=== PATIENT | female | born 1980 | race Caucasian/White ===

== ENCOUNTER 2016-08-31 08:53 | Emergency (ER) | payer OTHER ==
[~2016-08-31] VITALS: Ht 167.6 cm; Wt 63.5 kg
[~2016-08-31 08:53] MED LIST: ALPR0.5T PO; CITA40TA5 PO; DOCU-27 PO; HYDR-963 PO; MAGN400T3 PO; ROPI0.5T PO; TRAZ50TA15 PO
--- NOTE | 2016-08-31 08:59 | PHYS DOC ---
Past Medical History Past Medical History: Anxiety, Constipation, Other Additional Past Medical Histor: small bowel obstruction Past Surgical History: Hysterectomy, Splenectomy, Other Additional Past Surgical Histo: BOWEL RESECTION, transvaginal sling, PANCREATECTOMY Alcohol Use: None Drug Use: None Adult General Chief Complaint Chief Complaint: OTHER COMPLAINTS HPI HPI Patient is a 36 year old female who presents with 2 days of productive cough, fevers, chills, weakness. 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 She did receive her pneumococcal, influenza B and Neisseria meningitidis vaccinations. She states she's in taking Tylenol and a few of her narcotic pain medicines that contain Tylenol over the last several days. Do not actually take her temperature but has felt fevers and chills. She denies any neck pain, shortness of breath. She states her coughing up green sputum does make her abdomen more tender than usual. Denies any specific abdominal pain and states overall stomach swelling better than it has in the past. Eyes any diarrhea, or dysuria. Review of Systems Review of Systems Constitutional: As a first subjective fevers and chills [] Eyes: Denies change in visual acuity, redness, or eye pain [] HENT: Denies nasal congestion or sore throat [] Respiratory: Positive for productive cough, denies any shortness of breath [] Cardiovascular: No additional information not addressed in HPI [] GI: Denies abdominal pain, nausea, vomiting, bloody stools or diarrhea [] : Denies dysuria or hematuria [] Musculoskeletal: Denies back pain or joint pain [] Integument: Denies rash or skin lesions [] Neurologic: Denies headache, focal weakness or sensory changes [] Endocrine: Denies polyuria or polydipsia [] Current Medications Current Medications Current Medications Medications (Trade) Dose Ordered Sig/Joey Start Time Stop Time Status Last Admin Dose Admin Sodium Chloride (Iv Sodium Chloride 0.9% 1000ml Bag) 1,000 ml @ 1,000 mls/hr Q1H 08/31/16 09:05 08/31/16 10:04 DC 08/31/16 09:32 1,000 MLS/HR Allergies Allergies Allergies Coded Allergies Type Severity Reaction Last Updated Verified methylprednisolone Allergy Intermediate Hives 03/16/16 No trimethoprim Adverse Reaction Intermediate 03/16/16 No sulfamethoxazole Adverse Reaction Mild 03/16/16 No Physical Exam Physical Exam Constitutional: Well developed, well nourished, no acute distress, non-toxic appearance. [] HENT: Normocephalic, atraumatic, bilateral external ears normal, oropharynx moist, no oral exudates, nose normal. [] Eyes: PERRLA, EOMI, conjunctiva normal, no discharge. [] Neck: Normal range of motion, no tenderness, supple, no stridor. [] Cardiovascular:Heart rate regular rhythm, no murmur [] Lungs & Thorax: Bilateral breath sounds clear to auscultation [] Abdomen: Bowel sounds normal, soft, no tenderness, no masses, no pulsatile masses. [] Skin: Warm, dry, no erythema, no rash. [] Back: No tenderness, no CVA tenderness. [] Extremities: No tenderness, no cyanosis, no clubbing, ROM intact, no edema. [] Neurologic: Alert and oriented X 3, normal motor function, normal sensory function, no focal deficits noted. [] Psychologic: Affect normal, judgement normal, mood normal. [] Current Patient Data Vital Signs Vital Signs Date Time Temp Pulse Resp B/P Pulse Ox O2 Delivery O2 Flow Rate FiO2 08/31/16 11:32 71 18 118/79 98 Room Air 08/31/16 09:00 96.7 96.7 Lab Values Laboratory Tests Test 08/31/16 09:10 08/31/16 09:20 White Blood Count 4.9x10^3/uL (4.0-11.0) Red Blood Count 4.90x10^6/uL (3.50-5.40) Hemoglobin 13.9g/dL (12.0-15.5) Hematocrit 41.8% (36.0-47.0) Mean Corpuscular Volume 85fL (79-100) Mean Corpuscular Hemoglobin 28pg (25-35) Mean Corpuscular Hemoglobin Concent 33g/dL (31-37) Red Cell Distribution Width 14.9% (11.5-14.5) H Platelet Count 289x10^3/uL (140-400) Neutrophils (%) (Auto) 42% (31-73) Lymphocytes (%) (Auto) 42% (24-48) Monocytes (%) (Auto) 14% (0-9) H Eosinophils (%) (Auto) 1% (0-3) Basophils (%) (Auto) 1% (0-3) Neutrophils # (Auto) 2.1x10^3uL (1.8-7.7) Lymphocytes # (Auto) 2.1x10^3/uL (1.0-4.8) Monocytes # (Auto) 0.7x10^3/uL (0.0-1.1) Eosinophils # (Auto) 0.0x10^3/uL (0.0-0.7) Basophils # (Auto) 0.1x10^3/uL (0.0-0.2) Sodium Level 136mmol/L (136-145) Potassium Level 4.1mmol/L (3.5-5.1) Chloride Level 102mmol/L (98-107) Carbon Dioxide Level 27mmol/L (21-32) Anion Gap 7 (6-14) Blood Urea Nitrogen 13mg/dL (7-20) Creatinine 0.8mg/dL (0.6-1.0) Estimated GFR (Cockcroft-Gault) 82.1 BUN/Creatinine Ratio 16 (6-20) Glucose Level 77mg/dL (70-99) Calcium Level 9.7mg/dL (8.5-10.1) Total Bilirubin 0.3mg/dL (0.2-1.0) Direct Bilirubin 0.1mg/dL (0.0-0.2) Aspartate Amino Transferase (AST) 24U/L (15-37) Alanine Aminotransferase (ALT) 35U/L (14-59) Alkaline Phosphatase 66U/L (46-116) Total Protein 8.6g/dL (6.4-8.2) H Albumin 4.2g/dL (3.4-5.0) Albumin/Globulin Ratio 1.0 (1.0-1.7) Lactic Acid Level 1.7mmol/L (0.4-2.0) Influenza Type A Antigen Negative (NEGATIVE) Influenza Type B Antigen Negative (NEGATIVE) Laboratory Tests 08/31/16 09:10 Laboratory Tests 08/31/16 09:10 EKG EKG [] Radiology/Procedures Radiology[facility]Procedures [facility] [address] [place], [place] [id number] IMAGING REPORT Signed PATIENT: DAR EDUARDO ACCOUNT: [id number] : 1980 LOCATION: ER AGE: 36 SEX: F EXAM STATUS: REG ER ORD. PHYSICIAN: VINNY SANFORD MD REASON: fever, cough PROCEDURE: CHEST PA & LATERAL EXAM: Chest, 2 views. HISTORY: Cough. COMPARISON: 07/31/2016. FINDINGS: Frontal and lateral views of the chest are obtained. There is no infiltrate, effusion or pneumothorax. The heart is normal in size. IMPRESSION: No acute pulmonary finding. DICTATED and SIGNED BY: VERN MCNEIL MD DATE: 08/31/16 1025 CC: GO MEJIAS MD; VINNY SANFORD MD ~ Impressions: Bronchitis Course & Med Decision Making Course & Med Decision Making Pertinent Labs and Imaging studies reviewed. (See chart for details) Chest x-ray and additional labs show an acute abnormalities. She likely has bronchitis. Will treat with a Z-Josh, 40 mg prednisone by mouth daily for 5 days and Phenergan with codeine to help her suppress her cough and sleep. She is given return instructions for worsening fever, cough neck stiffness, confusion, other concerns return ER. Follow-up with primary care physician within the next 5-7 days. She agreeable plan being discharged in stable condition this time. Dragon Disclaimer Dragon Disclaimer This electronic medical record was generated, in whole or in part, using a voice recognition dictation system. Departure Departure Referrals: UNKNOWN PCP NAME (PCP) Scripts Promethazine HCl/Codeine (Prometh-Codein 6.25-10 mg/5 ml)5 Ml Syrup5 Ml PO PRN Q4-6HRS PRN COUGH 5 Days Prov:VINNY SANFORD MD 08/31/16 Prednisone 20 Mg Tablet1 Tab PO BID #10 TAB Prov:VINNY SANFORD MD 08/31/16 Azithromycin (Azithromycin Tablet)250 Mg Tablet1 Pkg PO UD #6 TAB Prov:VINNY SANFORD MD 08/31/16 VINNY SANFORD MD Aug 31, 2016 08:59
[2016-08-31] MEDS ORDERED: IV NORMAL SALINE 1000ML BAG 1,000 ML IV SCH (09:05)
[2016-08-31 09:32] LABS: CALCIUM 9.7 mg/dL (8.5-10.1); CREATININE 0.8 mg/dL (0.6-1.0); GFR 82.1; POTASSIUM 4.1 mmol/L (3.5-5.1)
[2016-08-31 09:37] LABS: ALBUMIN 4.2 g/dL (3.4-5.0); DIRECT BILIRUBIN 0.1 mg/dL (0.0-0.2); TOTAL BILIRUBIN 0.3 mg/dL (0.2-1.0); TOTAL PROTEIN 8.6 g/dL (6.4-8.2)
[2016-08-31 09:38] LABS: BASO # 0.1 x10^3/uL (0.0-0.2); BASO % 1 % (0-3); EOS % 1 % (0-3); HEMATOCRIT 41.8 % (36.0-47.0); HEMOGLOBIN 13.9 g/dL (12.0-15.5); LYMPH # 2.1 x10^3/uL (1.0-4.8); LYMPH % 42 % (24-48); MEAN CORPUSCULAR HEMOGLOBIN 28 pg (25-35); MEAN CORPUSCULAR HGB CONC 33 g/dL (31-37); MEAN CORPUSCULAR VOLUME 85 fL (79-100); MONO % 14 % (0-9); NEUT % 42 % (31-73); PLATELET COUNT 289 x10^3/uL (140-400); RED CELL DISTRIBUTION WIDTH 14.9 % (11.5-14.5); WHITE BLOOD COUNT 4.9 x10^3/uL (4.0-11.0)
[2016-08-31 09:52] LABS: OBC FLU VALID
--- NOTE | 2016-08-31 10:31 | RAD ---
EXAM: Chest, 2 views. HISTORY: Cough. COMPARISON: 07/31/2016. FINDINGS: Frontal and lateral views of the chest are obtained. There is no infiltrate, effusion or pneumothorax. The heart is normal in size. IMPRESSION: No acute pulmonary finding.
[2016-08-31 11:32] VITALS: BP 118/79
[2016-08-31] MEDS ORDERED: AZIT250T6 PO (11:41)
[2016-08-31] MEDS ORDERED: PRED20TA PO (11:41)
[2016-08-31] MEDS ORDERED: PROM5SYR2 PO (11:41)
[2016-08-31 12:48] LABS: PLT ESTIMATE ADEQUATE (ADEQUATE)
== END 2016-08-31 11:49 | disposition home or self-care (01) ==
LOC: ER 08:53
DX: J40 Bronchitis, not specified as acute or chronic (principal); Z90.710 Acquired absence of both cervix and uterus; Z90.81 Acquired absence of spleen; Z98.890 Other specified postprocedural states; Z90.410 Acquired total absence of pancreas; Z87.19 Personal history of other diseases of the digestive system; Z88.2 Allergy status to sulfonamides; Z88.1 Allergy status to other antibiotic agents; Z88.8 Allergy status to other drugs, medicaments and biological substances
CPT/HCPCS: 36415; 71020; 80053; 80076; 83605; 85007; 85027; 87040; 87804; 99285; J7030

== ENCOUNTER 2016-10-15 01:18 | Emergency (ER) | payer OTHER ==
[~2016-10-15] VITALS: Ht 167.6 cm; Wt 63.5 kg
[~2016-10-15 01:18] MED LIST changes: +AZIT250T6 PO; +PRED20TA PO; +PROM5SYR2 PO
[2016-10-15 01:41] VITALS: BP 145/94
[2016-10-15 01:52] LABS: BASO # 0.1 x10^3/uL (0.0-0.2); BASO % 1 % (0-3); EOS % 1 % (0-3); HEMATOCRIT 41.1 % (36.0-47.0); HEMOGLOBIN 13.4 g/dL (12.0-15.5); LYMPH # 3.3 x10^3/uL (1.0-4.8); LYMPH % 35 % (24-48); MEAN CORPUSCULAR HEMOGLOBIN 28 pg (25-35); MEAN CORPUSCULAR HGB CONC 33 g/dL (31-37); MEAN CORPUSCULAR VOLUME 87 fL (79-100); MONO % 7 % (0-9); NEUT % 57 % (31-73); PLATELET COUNT 252 x10^3/uL (140-400); RED BLOOD COUNT 4.73 x10^6/uL (3.50-5.40); RED CELL DISTRIBUTION WIDTH 14.6 % (11.5-14.5); WHITE BLOOD COUNT 9.5 x10^3/uL (4.0-11.0)
--- NOTE | 2016-10-15 02:10 | PHYS DOC ---
Past Medical History Past Medical History: Anxiety, Constipation, Other Additional Past Medical Histor: small bowel obstruction Past Surgical History: Hysterectomy, Splenectomy, Other Additional Past Surgical Histo: BOWEL RESECTION, transvaginal sling, PANCREATECTOMY Alcohol Use: None Drug Use: None Adult General Chief Complaint Chief Complaint: ABDOMINAL PAIN HPI HPI Patient is a 36 year old female who presents with umbilical abdominal pain for the past 2 days and feeling of umbilical/incisional hernia protrusion for the past 2 days. She has mild vague abdominal discomfort otherwise. Pain is constant , gradually worsening, achy. She denies n/v, f/c, diarrhea, constipation, bloody or dark stools. Review of Systems Review of Systems Constitutional: Denies fever or chills [] Eyes: Denies change in visual acuity, redness, or eye pain [] HENT: Denies nasal congestion or sore throat [] Respiratory: Denies cough or shortness of breath [] Cardiovascular: No additional information not addressed in HPI [] GI: Denies nausea, vomiting, bloody stools or diarrhea [] : Denies dysuria or hematuria [] Musculoskeletal: Denies back pain or joint pain [] Integument: Denies rash or skin lesions [] Neurologic: Denies headache, focal weakness or sensory changes [] Endocrine: Denies polyuria or polydipsia [] Current Medications Current Medications Current Medications Medications (Trade) Dose Ordered Sig/Joey Start Time Stop Time Status Last Admin Dose Admin Info (Do NOT chart on this entry -- for MONITORING) 1 each PRN DAILY PRN 10/15/16 02:15 10/17/16 02:14 Iohexol (Omnipaque 300 Mg/ml) 75 ml 1X ONCE 10/15/16 02:15 10/15/16 02:16 DC 10/15/16 02:35 75 ML Allergies Allergies Allergies Coded Allergies Type Severity Reaction Last Updated Verified methylprednisolone Allergy Intermediate Hives 03/16/16 No trimethoprim Adverse Reaction Intermediate 03/16/16 No sulfamethoxazole Adverse Reaction Mild 03/16/16 No Physical Exam Physical Exam Constitutional: Well developed, well nourished, no acute distress, non-toxic appearance. [] HENT: Normocephalic, atraumatic, bilateral external ears normal, oropharynx moist, nose normal. [] Eyes: PERRLA, EOMI. [] Neck: Normal range of motion, supple. [] Cardiovascular:Heart rate regular rhythm [] Lungs & Thorax: Bilateral breath sounds clear to auscultation [] Abdomen: Bowel sounds normal, soft, moderate tenderness supraumbilical incision area with thickened area worse here than other parts of incision scar, well appearing incision scar, no overlying skin changes, no abdominal tenderness otherwise. [] Skin: Warm, dry, no erythema, no rash. [] Back: Normal ROM. [] Extremities: ROM intact, ambulatory with a steady gait. [] Neurologic: Alert and oriented X 3, normal motor function, normal sensory function, no focal deficits noted. [] Psychologic: Affect normal, judgement normal, mood normal. [] Current Patient Data Vital Signs Vital Signs Date Time Temp Pulse Resp B/P Pulse Ox O2 Delivery O2 Flow Rate FiO2 10/15/16 01:41 98.2 77 20 145/94 99 Room Air 98.2 Lab Values Laboratory Tests Test 10/15/16 01:37 White Blood Count 9.5x10^3/uL (4.0-11.0) Red Blood Count 4.73x10^6/uL (3.50-5.40) Hemoglobin 13.4g/dL (12.0-15.5) Hematocrit 41.1% (36.0-47.0) Mean Corpuscular Volume 87fL (79-100) Mean Corpuscular Hemoglobin 28pg (25-35) Mean Corpuscular Hemoglobin Concent 33g/dL (31-37) Red Cell Distribution Width 14.6% (11.5-14.5) H Platelet Count 252x10^3/uL (140-400) Neutrophils (%) (Auto) 57% (31-73) Lymphocytes (%) (Auto) 35% (24-48) Monocytes (%) (Auto) 7% (0-9) Eosinophils (%) (Auto) 1% (0-3) Basophils (%) (Auto) 1% (0-3) Neutrophils # (Auto) 5.4x10^3uL (1.8-7.7) Lymphocytes # (Auto) 3.3x10^3/uL (1.0-4.8) Monocytes # (Auto) 0.6x10^3/uL (0.0-1.1) Eosinophils # (Auto) 0.1x10^3/uL (0.0-0.7) Basophils # (Auto) 0.1x10^3/uL (0.0-0.2) Sodium Level 139mmol/L (136-145) Potassium Level 3.6mmol/L (3.5-5.1) Chloride Level 103mmol/L (98-107) Carbon Dioxide Level 26mmol/L (21-32) Anion Gap 10 (6-14) Blood Urea Nitrogen 18mg/dL (7-20) Creatinine 0.7mg/dL (0.6-1.0) Estimated GFR (Cockcroft-Gault) 95.8 Glucose Level 144mg/dL (70-99) H Lactic Acid Level 1.0mmol/L (0.4-2.0) Calcium Level 9.5mg/dL (8.5-10.1) Laboratory Tests 10/15/16 01:37 Laboratory Tests 10/15/16 01:37 Radiology/Procedures Radiology/Procedures CT abdomen and pelvis with IV contrast IMPRESSION Small residual fluid collection anterior to the left lobe of the liver measuring 1.5 centimeters. A hernia is not demonstrated CT Postop changes. No bowel obstruction or other abnormal fluid collections or other acute finding noted. Electronically signed by: Leonel Pratt MD (Oct 15, 2016 02:59:50) Course & Med Decision Making Course & Med Decision Making Pertinent Labs and Imaging studies reviewed. (See chart for details) Workup is unremarkable. Symptom likely related to scar tissue pain worse with frequent manipulation. Return precautions given. She understands and agrees with plan. Dragon Disclaimer Dragon Disclaimer This electronic medical record was generated, in whole or in part, using a voice recognition dictation system. Departure Departure Impression: Primary Impression: Abdominal wall pain Disposition: 01 HOME, SELF-CARE Condition: STABLE Referrals: GO MEJIAS MD (PCP) Patient Instructions: Medical Screening Exam Additional Instructions: Follow up with your primary care doctor. Return for any concerns. Socrates ERVIN MD Oct 15, 2016 02:10
[2016-10-15] MEDS ORDERED: CONTRAST GIVEN MC PRN (02:15)
[2016-10-15] MEDS ORDERED: IOHEXOL 300 MG/ML 75 ML VIAL IV ONE (02:15)
[2016-10-15 02:17] LABS: CALCIUM 9.5 mg/dL (8.5-10.1); CREATININE 0.7 mg/dL (0.6-1.0); GFR 95.8; POTASSIUM 3.6 mmol/L (3.5-5.1)
--- NOTE | 2016-10-15 03:01 | RAD ---
PROCEDURE CT abdomen and pelvis with contrast HISTORY UMBILICAL ABDOMEN PAIN WITH PALPABLE HERNIA
OMNI [address] images were obtained using 75 mL of Omnipaque 300 contrast. Sagittal and coronal reconstructed images were reviewed. One or more of the following individualized dose reduction techniques were utilized for this examination: 1. Automated exposure control; 2. Adjustment of the mA and/or kV according to patient size; 3. Use of iterative reconstruction technique.One or more of the following individualized dose reduction techniques were utilized for this examination: 1. Automated exposure control; 2. Adjustment of the mA and/or kV according to patient size; 3. Use of iterative reconstruction technique. COMPARISON Comparison is made with a study from July 31, 2016 FINDINGS The lung bases are clear. There is no effusion. A liver lesion is not identified. There is a small residual 1.5 centimeter fluid collection anterior to the liver which has improved since the prior exam. Patient has had a splenectomy. There is also evidence suggesting a distal pancreatectomy. There is no mass or hydronephrosis in the kidneys. There is no bowel obstruction. There is no ascites. Uterus and ovaries are normal. There are changes from bowel surgery. There is no adenopathy. A significant umbilical hernia is not demonstrated on the CT images. IMPRESSION Small residual fluid collection anterior to the left lobe of the liver measuring 1.5 centimeters. A hernia is not demonstrated CT Postop changes. No bowel obstruction or other abnormal fluid collections or other acute finding noted. Electronically signed by: Leonel Pratt MD (Oct 15, 2016 02:59:50)
== END 2016-10-15 03:06 | disposition home or self-care (01) ==
LOC: ER 01:18
DX: R10.33 Periumbilical pain (principal); K56.60 Unspecified intestinal obstruction; Z90.81 Acquired absence of spleen; Z90.710 Acquired absence of both cervix and uterus; Z90.410 Acquired total absence of pancreas; Z98.890 Other specified postprocedural states; Z88.2 Allergy status to sulfonamides; Z88.1 Allergy status to other antibiotic agents; Z88.8 Allergy status to other drugs, medicaments and biological substances
CPT/HCPCS: 36415; 74177; 80048; 83605; 85027; 99285; Q9967

== ENCOUNTER → 2017-01-03 | Outpatient (CLI) | payer OTHER ==
--- NOTE | 2017-01-04 20:18 | SLEEP ---
DATE OF STUDY: 01/03/2017 OBJECTIVE: The patient is a 36-year-old female with restless legs syndrome. Her pain clinic doctor believes that she needs a sleep study for this diagnosis. Height 5 feet 6 inches, weight 140 pounds, BMI 23, Keene sleep score 8. INTERPRETATION: Sleep architecture is characterized by sleep efficiency of 97% across the 6.6 hours of recording time. Stage volumes are normal for age. Sleep onset latency is 6 minutes. Respiratory monitoring shows a total of 3 events for an apnea-hypopnea index of 0.5 events per hour of sleep. Minimum oxygen saturation is 93%. Periodic limb movements of sleep occur at a rate of 6 events per hour, one event per hour associated with arousal. No cardiac arrhythmias are observed. IMPRESSION: Essentially normal polysomnogram showing no sleep disordered breathing and the periodic limb movements of sleep are at a minimum level. Thank you for letting us help with the patient's care. SHIRA JACKSON MD DR: SHELIA/chucho JOB#: [id number] / [id number] Lizzeth Walters MD
== END | disposition home or self-care (01) ==
LOC: SLPLAB 18:48
PROVIDERS: ATTEND Family Medicine
DX: G25.81 Restless legs syndrome (principal); G47.33 Obstructive sleep apnea (adult) (pediatric)
CPT/HCPCS: 95810

== ENCOUNTER → 2017-02-16 | Outpatient (CLI) | payer OTHER ==
[~2017-02-16] MED LIST changes: +DOCU-109 PO; -DOCU-27 PO
== END | disposition home or self-care (01) ==
LOC: LAB 02:55
DX: Z11.59 Encounter for screening for other viral diseases (principal)
CPT/HCPCS: 36415; 86735; 86762; 86765

== ENCOUNTER → 2017-02-22 | Outpatient (CLI) | payer OTHER | END | disposition home or self-care (01) | LOC: LAB 00:49 | PROVIDERS: ATTEND Emergency Medicine | DX: Z11.1 Encounter for screening for respiratory tuberculosis (principal) | CPT/HCPCS: 36415 ==

== ENCOUNTER 2017-03-16 15:19 | Observation (INO) | payer OTHER ==
[~2017-03-16] VITALS: Ht 167.6 cm; Wt 64.5 kg
[2017-03-16] MEDS ORDERED: IV NORMAL SALINE 1000ML BAG 1,000 ML IV ONE (15:45)
[2017-03-16] MEDS ORDERED: ONDANSETRON PF 4 MG/2 ML VIAL. IV ONE (15:45)
--- NOTE | 2017-03-16 15:59 | PHYS DOC ---
Past Medical History Past Medical History: Anxiety, Constipation, Other Additional Past Medical Histor: small bowel obstruction Past Surgical History: Hysterectomy, Splenectomy, Other Additional Past Surgical Histo: BOWEL RESECTION, transvaginal sling, PANCREATECTOMY Alcohol Use: None Drug Use: None Adult General Chief Complaint Chief Complaint: ABDOMINAL PAIN HPI HPI 37-year-old female presenting to the emergency department today with right lower quadrant abdominal pain. She describes it as a migrating pain. Started around 4 AM yesterday. It is a throbbing pain that migrated from the periumbilical region down to the right lower quadrant. She also reports "rectal pain". She denies melena or hematochezia. She has nausea. She denies fevers however has had chills. Review of systems is negative for chest pain shortness of breath. Positive for mild headache similar to previous headaches. Negative for numbness weakness or tingling. All other review of systems is negative unless otherwise noted in history of present illness. ED course: 37-year-old female presenting to the emergency department today with right lower quadrant abdominal pain. Triage vital signs. Pertinent physical exam findings shows the patient has mild tenderness in the right lower quadrant. No rebound tenderness present. No guarding present. Blood work sent. CBC shows elevated leukocytosis. CT abdomen pelvis obtained with IV contrast which was not suggestive of appendicitis. On reexamination the patient the patient continues to have right lower quadrant abdominal pain. Her clinical history is strongly suggestive of appendicitis of the patient was subsequently admitted to our hospital for serial abdominal examinations and surgical consultation. Review of Systems Review of Systems SEE ABOVE. Current Medications Current Medications Current Medications Medications (Trade) Dose Ordered Sig/[facility] Start Time Stop Time Status Last Admin Dose Admin Hydromorphone HCl (Dilaudid) 0.5 mg PRN Q30MIN PRN 03/16/17 15:45 03/16/17 18:33 DC 03/16/17 18:33 0.5 MG Iohexol (Omnipaque 300 Mg/ml) 75 ml 1X ONCE 03/16/17 16:30 03/16/17 16:31 DC 03/16/17 16:38 75 ML Morphine Sulfate 2 mg PRN Q1HR PRN 03/16/17 17:00 03/16/17 17:05 2 MG Ondansetron HCl (Zofran) 4 mg 1X ONCE 03/16/17 15:45 03/16/17 15:48 DC 03/16/17 16:02 4 MG Sodium Chloride 1,000 ml @ 1,000 mls/hr 1X ONCE 03/16/17 15:45 03/16/17 16:44 DC 03/16/17 16:02 1,000 MLS/HR Allergies Allergies Allergies Coded Allergies Type Severity Reaction Last Updated Verified methylprednisolone Allergy Intermediate Hives 03/16/16 No trimethoprim Adverse Reaction Intermediate 03/16/16 No sulfamethoxazole Adverse Reaction Mild 03/16/16 No Physical Exam Physical Exam SEE ABOVE Constitutional: Well developed, well nourished, no acute distress, non-toxic appearance. [] HENT: Normocephalic, atraumatic, bilateral external ears normal, oropharynx moist, no oral exudates, nose normal. [] Eyes: PERRLA, EOMI, conjunctiva normal, no discharge. [] Neck: Normal range of motion, no tenderness, supple, no stridor. [] Cardiovascular:Heart rate regular rhythm, no murmur [] Lungs & Thorax: Bilateral breath sounds clear to auscultation [] Abdomen: SEE ABOVE Skin: Warm, dry, no erythema, no rash. [] Back: No tenderness, no CVA tenderness. [] Extremities: No tenderness, no cyanosis, no clubbing, ROM intact, no edema. [] Neurologic: Alert and oriented X 3, normal motor function, normal sensory function, no focal deficits noted. [] Psychologic: Affect normal, judgement normal, mood normal. [] Current Patient Data Vital Signs Vital Signs Date Time Temp Pulse Resp B/P (MAP) Pulse Ox O2 Delivery O2 Flow Rate FiO2 03/16/17 17:27 74 20 106/68 (81) 96 Room Air 03/16/17 15:25 98.0 98.0 Lab Values Laboratory Tests Test 03/16/17 15:50 White Blood Count 14.1 x10^3/uL (4.0-11.0) H Red Blood Count 4.85 x10^6/uL (3.50-5.40) Hemoglobin 14.0 g/dL (12.0-15.5) Hematocrit 42.8 % (36.0-47.0) Mean Corpuscular Volume 88 fL (79-100) Mean Corpuscular Hemoglobin 29 pg (25-35) Mean Corpuscular Hemoglobin Concent 33 g/dL (31-37) Red Cell Distribution Width 14.5 % (11.5-14.5) Platelet Count 300 x10^3/uL (140-400) Neutrophils (%) (Auto) 83 % (31-73) H Lymphocytes (%) (Auto) 12 % (24-48) L Monocytes (%) (Auto) 4 % (0-9) Eosinophils (%) (Auto) 0 % (0-3) Basophils (%) (Auto) 1 % (0-3) Neutrophils # (Auto) 11.7 x10^3uL (1.8-7.7) H Lymphocytes # (Auto) 1.7 x10^3/uL (1.0-4.8) Monocytes # (Auto) 0.6 x10^3/uL (0.0-1.1) Eosinophils # (Auto) 0.0 x10^3/uL (0.0-0.7) Basophils # (Auto) 0.1 x10^3/uL (0.0-0.2) Sodium Level 140 mmol/L (136-145) Potassium Level 4.3 mmol/L (3.5-5.1) Chloride Level 104 mmol/L (98-107) Carbon Dioxide Level 26 mmol/L (21-32) Anion Gap 10 (6-14) Blood Urea Nitrogen 12 mg/dL (7-20) Creatinine 0.7 mg/dL (0.6-1.0) Estimated GFR (Cockcroft-Gault) 95.2 Glucose Level 104 mg/dL (70-99) H Calcium Level 9.5 mg/dL (8.5-10.1) Total Bilirubin 0.5 mg/dL (0.2-1.0) Direct Bilirubin 0.1 mg/dL (0.0-0.2) Aspartate Amino Transferase (AST) 15 U/L (15-37) Alanine Aminotransferase (ALT) 18 U/L (14-59) Alkaline Phosphatase 51 U/L (46-116) Total Protein 7.4 g/dL (6.4-8.2) Albumin 4.0 g/dL (3.4-5.0) Lipase 95 U/L (73-393) Laboratory Tests 03/16/17 15:50 Laboratory Tests 03/16/17 15:50 EKG EKG [] Radiology/Procedures Radiology/Procedures [] Course & Med Decision Making Course & Med Decision Making Pertinent Labs and Imaging studies reviewed. (See chart for details) [] Dragon Disclaimer Dragon Disclaimer This electronic medical record was generated, in whole or in part, using a voice recognition dictation system. Departure Departure Impression: Primary Impression: Abdominal pain Disposition: ADMITTED INPATIENT Admitting Physician: Song Galindo Condition: STABLE Referrals: GO MEJIAS MD (PCP) Patient Instructions: Abdominal Pain BAILEY EDMONDSON MD Mar 16, 2017 15:59
[2017-03-16] MEDS: HYDROmorphone 2 MG/ML VIAL IV PRN ×4 (16:03→18:33)
[2017-03-16 16:04] LABS: BASO # 0.1 x10^3/uL (0.0-0.2); BASO % 1 % (0-3); EOS % 0 % (0-3); HEMATOCRIT 42.8 % (36.0-47.0); LYMPH # 1.7 x10^3/uL (1.0-4.8); LYMPH % 12 % (24-48); MEAN CORPUSCULAR HEMOGLOBIN 29 pg (25-35); MEAN CORPUSCULAR HGB CONC 33 g/dL (31-37); MEAN CORPUSCULAR VOLUME 88 fL (79-100); MONO % 4 % (0-9); NEUT % 83 % (31-73); PLATELET COUNT 300 x10^3/uL (140-400); RED BLOOD COUNT 4.85 x10^6/uL (3.50-5.40); RED CELL DISTRIBUTION WIDTH 14.5 % (11.5-14.5); WHITE BLOOD COUNT 14.1 x10^3/uL (4.0-11.0)
[2017-03-16 16:12] LABS: CALCIUM 9.5 mg/dL (8.5-10.1); CREATININE 0.7 mg/dL (0.6-1.0); GFR 95.2; POTASSIUM 4.3 mmol/L (3.5-5.1)
[2017-03-16 16:23] LABS: DIRECT BILIRUBIN 0.1 mg/dL (0.0-0.2); TOTAL BILIRUBIN 0.5 mg/dL (0.2-1.0); TOTAL PROTEIN 7.4 g/dL (6.4-8.2)
[2017-03-16] MEDS ORDERED: IOHEXOL 300 MG/ML 75 ML VIAL IV ONE (16:30)
[2017-03-16] MEDS: MORPHINE SULFATE 2 MG/ML DISP.SYRIN. IV PRN ×3 (17:05→22:51)
--- NOTE | 2017-03-16 17:12 | RAD ---
CT of the abdomen and pelvis with contrast, 03/16/2017: History: Abdominal pain, nausea and vomiting Multidetector CT imaging was performed following an IV bolus injection of iodinated contrast material. No oral contrast material was administered for this study. Comparison is made to an exam from 10/15/2016. No hepatic abnormality is detected. The gallbladder is unremarkable. The pancreatic head cannot be clearly from unopacified bowel. There appears to have been partial resection of the pancreatic body and tail. The spleen is surgically absent. No renal abnormality is detected. There are surgical sutures related to bowel loops in the pelvis. No bowel distention is evident. A thin tubular collection of gas in the right pelvis probably represents a segment of appendix. No dilated appendix is evident. There is a small amount of free fluid in the pelvis. No free air is evident in the abdomen or pelvis. IMPRESSION: 1. Postsurgical changes. 2. Small amount of free fluid in the pelvis. 3. No other acute abdominal or pelvic abnormality is detected. PQRS Compliance Statement: One or more of the following individualized dose reduction techniques were utilized for this examination: 1. Automated exposure control 2. Adjustment of the mA and/or kV according to patient size 3. Use of iterative reconstruction technique
[2017-03-16] MEDS ORDERED: OXYC5TAB PO (19:41)
[2017-03-16] MEDS ORDERED: OXYC10TA PO (19:41)
[2017-03-16] MEDS: IV NORMAL SALINE 1000ML BAG 1,000 ML IV SCH (19:45)
[2017-03-16 20:35] VITALS: BP 103/62
[2017-03-16] MEDS ORDERED: IBUPROFEN 400 MG TABLET. PO PRN (21:15)
[2017-03-16] MEDS ORDERED: traZODone 50 MG TABLET. PO PRN (21:15)
[2017-03-16] MEDS ORDERED: oxyCODONE IR 5 MG TABLET PO PRN (21:15)
[2017-03-16] MEDS ORDERED: ALPRAZolam 0.5 MG TABLET PO PRN (21:15)
[2017-03-16] MEDS ORDERED: DOCUSATE SODIUM 100 MG CAPSULE. PO PRN (21:15)
[2017-03-16] MEDS: ONDANSETRON PF 4 MG/2 ML VIAL. IV PRN (21:36)
[2017-03-16] MEDS: KETOROLAC 15 MG/ML VIAL. IV PRN (21:36)
[2017-03-16] MEDS: CITALOPRAM 20 MG TABLET. PO SCH (21:37)
[2017-03-16 23:00] VITALS: BP 94/51
--- NOTE | 2017-03-16 23:57 | HP ---
ADMIT DATE: 03/16/2017 CHIEF COMPLAINT: Abdominal pain. HISTORY OF PRESENT ILLNESS: The patient is a pleasant middle-aged white female who has had several abdominal surgeries. She presents with a 10/10 abdominal pain that has been occurring for several days. She also has pain in her rectum. She states it feels very deep, it is throbbing. She tried taking more home medications, but that did not seem to work. Clinically, it seems that she might possibly have an appendicitis. I discussed the case with the ER physician. We are going to admit the patient and consult General Surgery. PAST MEDICAL HISTORY: Chronic pain, multiple abdominal surgeries. She has had a partial colon resection because of mesh that got entangled into her bowel. She has had a subtotal pancreatectomy at . ALLERGIES: METHYLPREDNISOLONE, SULFA AND TRIMETHOPRIM. FAMILY HISTORY: Hypertension. SOCIAL HISTORY: She is an RN. She does not drink, smoke or take drugs. She works in our Emergency Room. MEDICATIONS: Reviewed. She is on Xanax, citalopram, Colace, magnesium, oxycodone, trazodone. REVIEW OF SYSTEMS: GENERAL: No history of weight change, weakness or fevers. SKIN: No bruising, hair changes or rashes. EYES: No blurred, double or loss of vision. NOSE AND THROAT: No history of nosebleeds, hoarseness or sore throat. HEART: No history of palpitations, chest pain or shortness of breath on exertion. LUNGS: Denies cough, hemoptysis, wheezing or shortness of breath. GASTROINTESTINAL: She complains of abdominal pain. GENITOURINARY: No history of frequency, urgency, hesitancy or nocturia. NEUROLOGIC: Denies history of numbness, tingling, tremor or weakness. PSYCHIATRIC: No history of panic, anxiety or depression. ENDOCRINE: No history of heat or cold intolerance, polyuria or polydipsia. EXTREMITIES: Denies muscle weakness, joint pain, pain on walking or stiffness. PHYSICAL EXAMINATION: VITAL SIGNS: Temperature 98.2, pulse 80, respirations 18, blood pressure 113/60. GENERAL: She is alert, cooperative. HEART: Normal S1, S2. LUNGS: Clear. ABDOMEN: Soft, nontender. EXTREMITIES: No edema. ENDOCRINE: No thyromegaly. SKIN: No rashes. PSYCHIATRIC: She is a little anxious. VASCULAR: Good capillary refill. LABORATORY DATA: White count 14, hemoglobin 14, platelets 300. Electrolytes normal. ASSESSMENT AND PLAN: Abdominal pain, rule out appendicitis. The patient has been admitted. We will start IV Rocephin. Consult General Surgery. Try to resume her home meds, IV fluids, repeat her labs in the morning. NADJA FARR DO DR: ABIODUN/chucho JOB#: [id number] / [id number]
[2017-03-17] MEDS: MORPHINE SULFATE 2 MG/ML DISP.SYRIN. IV PRN ×6 (02:08→20:45)
[2017-03-17 03:00] VITALS: BP 106/63
--- NOTE | 2017-03-17 03:03 | ACF ---
Admission Forms Criteria ABDOMINAL PAIN Clinical Indications for Admission to Inpatient Care (Place 'X' for any and all applicable criteria): Admission is indicated for ANY ONE of the following(1)(2)(3)(4)(5): [X]I. Inpatient admission required rather than observation care (Also use Abdominal Pain: Observation Care, as appropriate) because of ANY ONE of the following: [X]a) Severe pain requiring acute inpatient management [ ]b) Identification of etiology/finding that requires inpatient care (eg, aortic dissection, free air) [ ]c) Absent bowel sounds with complete ileus(6) [ ]d) Suspected toxic megacolon [ ]e) Severe electrolyte abnormalities requiring inpatient care [ ]f) High fever or infection requiring inpatient admission as indicated by ANY ONE of following(7)(8): [ ] i) Appropriate outpatient or observational care antimicrobial treatment unavailable, not effective, or not feasible [ ] ii) Documented bacteremia [ ] iii) Temperature > 104.9 degrees F (oral) [ ] iv) T >103.1 F (oral) or < 96.8 F(rectal) that does not respond to all emergency treatment measures [ ]g) Signs of intestinal obstruction [B] [ ]h) Hemodynamic instability [ ]i) IV fluid to replace significant ongoing losses (greater than 3 L/m2 per day) (12)(13) [ ]j) Percutaneous or open drainage (eg, abscess, biliary tract ) procedures [ ]k) Parenteral nutrition regimen that must be implemented on inpatient basis [ ]l) Other condition,treatment or monitoring requiring inpatient admission. [ ]II. Peritoneal signs present [ ]III. Surgery needed that cannot be performed on an ambulatory basis. [ ]IV. Evaluation requires patient to not eat or drink for extended period ( eg, more than 24 hours). [ ]V. Contraindications and/or Inappropriate clinical situations for Observational Care in patients with abdominal pain, when ANY ONE of the following is required: [ ]a) Thorough evaluation is required to prevent catastrophic events due to delays in diagnosing (e.g.Mesenteric ischemia) 1,3 [ ]b) Patient with severe pathology or with chronic symptoms unlikely to improve in the ED stay (3) [ ]. General contraindications and/or Inappropriate clinical situations for Observational Care in patients with abdominal pain, when ANY ONE of the following is required: [ ]a) Prediction of prolongation of LOS based on ANY ONE of the following may be considered as a contraindication for observational care 2, 3, 4, 5, 6, 7, 8, 9, 10, 11 [ ]i) Age > 65 yrs. [ ]ii) Patient arriving by ambulance [ ]iii) Patient with high acuity [ ]iv) Patient requiring vital sign monitoring [ ]v) Patient on IV medication [ ]b) Systolic blood pressures 180mmHg 3,12 [ ]c) Patient with altered mental status including delirium and other alteration of consciousness, (3) [ ]d) Patient whose discharge disposition will be to a nursing home home or rehabilitation home should not be managed in Emergency Department Observation Unit. CMS rule requires 3 days hospital stay before such placement.3,13 [ ]e) Patient with failure to thrive due to broad array of etiologies 3,16,17 [ ]f) Inability to ambulate 3,14 Extended stay beyond goal length of stay may be needed for(2)(3): [ ]a) Persistent abdominal pain with suspected intra-abdominal process [ ]b) Diagnosed condition requiring continued stay (e.g., pancreatitis, complicated diverticulitis) [ ]c) Surgery (e.g., colectomy) The original [facility] content created by [email or web address] has been revised. The portions of the content which have been revised are identified through the use of italic text or in bold, and [facility] has neither reviewed nor approved the modified material.All other unmodified content is copyright [facility]. Please see references footnoted in the original [facility] edition 2016 Admission Criteria Met?: Yes HANS RICKS Mar 17, 2017 03:02
[2017-03-17] MEDS: IV NORMAL SALINE 1000ML BAG 1,000 ML IV SCH ×2 (04:26→13:09)
[2017-03-17 04:36] LABS: BASO # 0.1 x10^3/uL (0.0-0.2); BASO % 1 % (0-3); EOS % 1 % (0-3); HEMATOCRIT 37.7 % (36.0-47.0); HEMOGLOBIN 12.4 g/dL (12.0-15.5); LYMPH # 2.5 x10^3/uL (1.0-4.8); LYMPH % 24 % (24-48); MEAN CORPUSCULAR HEMOGLOBIN 29 pg (25-35); MEAN CORPUSCULAR HGB CONC 33 g/dL (31-37); MEAN CORPUSCULAR VOLUME 89 fL (79-100); MONO % 7 % (0-9); NEUT % 68 % (31-73); PLATELET COUNT 254 x10^3/uL (140-400); RED BLOOD COUNT 4.25 x10^6/uL (3.50-5.40); RED CELL DISTRIBUTION WIDTH 14.4 % (11.5-14.5); WHITE BLOOD COUNT 10.4 x10^3/uL (4.0-11.0)
[2017-03-17 05:00] LABS: CALCIUM 8.1 mg/dL (8.5-10.1); CREATININE 0.7 mg/dL (0.6-1.0); GFR 95.2
[2017-03-17] MEDS: KETOROLAC 15 MG/ML VIAL. IV PRN ×2 (07:08→13:16)
[2017-03-17] MEDS: ONDANSETRON PF 4 MG/2 ML VIAL. IV PRN ×2 (07:08→15:24)
[2017-03-17 07:22] VITALS: BP 112/72
[2017-03-17] MEDS: MAGNESIUM OXIDE 400 MG TABLET PO SCH (08:53)
--- NOTE | 2017-03-17 08:55 | PDOC2 ---
JESENIA MAXWELL EVENTS MANAGER 03/17/17 0854: CONSULT Date of Consult Date of Consult DATE: 03/17/17 TIME: 08:47 Reason for Consult Reason for Consult: RLQ pain Referring Physician Referring Physician: ER Identification/Chief Complaint Chief Complaint abdominal pain Problems: Source Source: Chart review, Patient History of Present Illness Reason for Visit: 4 days ago developed diarrhea proceeded by significant abdominal pain, nausea and emesis. The diarrhea stopped, however she continued to have umbilical pain with radiation to RLQ and throbbing in rectum. She has not been able to keep anything down for 2 days. Currently still having pain, somewhat improved and nausea. Denies sick contacts. She has an extensive surgical history and hesitant for any additional surgeries Past Medical History Cardiovascular: No pertinent hx Pulmonary: No pertinent hx GI: Constipation Heme/Onc: No pertinent hx Psych: Anxiety, Depression Infectious disease: No pertinent hx Past Surgical History Past Surgical History: Hysterectomy, Other (splenectomy, pancreatectomy, bowel resection, hernia repair with mesh ) Family History Family History: Family History Unknown Social History Quit ALCOHOL: none Drugs: None Lives: with Family Current Problem List Problem List Problems Medical Problems: (1) Abdominal pain Status: Acute Current Medications Current Medications Current Medications Ondansetron HCl (Zofran) 4 mg 1X ONCE IV Last administered on 03/16/17 16:02 ; Start 03/16/17 at 15:45; Stop 03/16/17 at 15:48; Status DC Hydromorphone HCl (Dilaudid) 0.5 mg PRN Q30MIN PRN IV moderate to seevere pain Last administered on 03/16/17 18:33; Start 03/16/17 at 15:45; Stop 03/16/17 at 18:33; Status DC Sodium Chloride 1,000 ml @ 1,000 mls/hr 1X ONCE IV Last administered on 16:02; Start 03/16/17 at 15:45; Stop 03/16/17 at 16:44; Status DC Iohexol (Omnipaque 300 Mg/ml) 75 ml 1X ONCE IV Last administered on 03/16/17 16:38; Start 03/16/17 at 16:30; Stop 03/16/17 at 16:31; Status DC Morphine Sulfate 2 mg PRN Q1HR PRN IV SEVERE PAIN Last administered on 17:05; Start 03/16/17 at 17:00 Ondansetron HCl (Zofran) 4 mg PRN Q8HRS PRN IV NAUSEA/VOMITING Last administered on 03/17/17 07:08; Start 03/16/17 at 17:45; Stop 03/17/17 at 17:44 Morphine Sulfate 2 mg PRN Q2HR PRN IV PAIN Last administered on 03/17/17 07:07 ; Start 03/16/17 at 17:45; Stop 03/17/17 at 17:44 Sodium Chloride 1,000 ml @ 125 mls/hr Q8H IV Last administered on 03/17/17 04 :26; Start 03/16/17 at 17:34; Stop 03/17/17 at 17:33 Ketorolac Tromethamine (Toradol) 15 mg PRN Q6HRS PRN IV PAIN Last administered on 03/17/17 07:08; Start 03/16/17 at 21:15; Stop 03/21/17 at 21:14 Ibuprofen (Motrin) 400 mg PRN Q6HRS PRN PO INFLAMMATION; Start 03/16/17 at 21: 15 Alprazolam (Xanax) 0.5 mg PRN Q4HRS PRN PO ANXIETY / AGITATION; Start 03/16/17 at 21:15 Docusate Sodium (Colace) 200 mg PRN DAILY PRN PO CONSTIPATION; Start 03/16/17 at 21:15 Magnesium Oxide (Magnesium Oxide) 800 mg DAILY PO ; Start 03/17/17 at 09:00 Oxycodone HCl (Roxicodone) 5 mg PRN Q4HRS PRN PO PAIN; Start 03/16/17 at 21:15 Trazodone HCl (Desyrel) 50 mg PRN QHS PRN PO INSOMNIA; Start 03/16/17 at 21:15 Citalopram Hydrobromide (CeleXA) 40 mg DAILY PO ; Start 03/17/17 at 09:00; Stop 03/17/17 at 09:00; Status DC Oxycodone HCl (Roxicodone) 10 mg PRN Q4HRS PRN PO PAIN; Start 03/16/17 at 21:15 Citalopram Hydrobromide (CeleXA) 40 mg HS PO Last administered on 03/16/17 21: 37; Start 03/16/17 at 21:30 Ceftriaxone Sodium 1 gm/ Sodium Chloride 50 ml @ 100 mls/hr Q24H IV ; Start at 21:00 Ceftriaxone Sodium 1 gm/ Sodium Chloride 50 ml @ 100 mls/hr ONCE ONCE IV Last administered on 03/16/17 23:51; Start 03/16/17 at 23:45; Stop 03/17/17 at 00:14; Status DC Active Scripts Active Reported Oxycodone Hcl 10 Mg Tablet 10 Mg PO PRN Q4HRS PRN Oxycodone Hcl 5 Mg Tablet 5 Mg PO PRN Q4HRS PRN Colace (Docusate Sodium) 100 Mg Capsule 2 Cap PO PRN DAILY PRN Magnesium Oxide 400 Mg Tablet 2 Tab PO DAILY Xanax (Alprazolam) 0.5 Mg Tablet 1 Tab PO PRN Q4HRS PRN Trazodone Hcl 50 Mg Tablet 1 Tab PO PRN PRN Citalopram Hbr (Citalopram Hydrobromide) 40 Mg Tablet 1 Tab PO HS Allergies Allergies: Coded Allergies: methylprednisolone (Verified Allergy, Intermediate, Hives, 03/17/17) trimethoprim (Verified Adverse Reaction, Intermediate, 03/17/17) LETHARGIC sulfamethoxazole (Verified Adverse Reaction, Mild, 03/17/17) LETHARGIC ROS General: YES: Chills, Other (subjective fevers) PSYCHOLOGICAL ROS: No: Anxiety, Depression Eyes: No Blurry vision, No Double vision HEENT: No: Heacaches, Sore Throat Hematological and Lymphatic: No: Bleeding Problems, Blood Clots Respiratory: No: Cough, Shortness of breath Cardiovascular: No Chest Pain, No Palpitations Gastrointestinal: Yes Other (see hpi) Genitourinary: No Dysuria, No Hematuria Musculoskeletal: No Joint Pain, No Muscle Pain Neurological: No Impaired Coord/balance, No Numbness/Tingling Skin: No Pruritus, No Rash Physical Exam General: Alert, Oriented X3, Cooperative, No acute distress HEENT: PERRLA, Mucous membr. moist/pink Lungs: Clear to auscultation, Normal air movement Heart: Regular rate, Normal S1, Normal S2, No murmurs Abdomen: Soft, Other (ND, multiple abdominal scars, umbilical/RLQ TTP, no guarding or rebound) Extremities: No clubbing, No cyanosis Skin: No rashes, No breakdown Neuro: Normal gait, Normal speech Psych/Mental Status: Mental status NL, Mood NL MUSCULOSKELETAL: No deformity, No swelling Vitals VITALS Vital Signs Date Time Temp Pulse Resp B/P (MAP) Pulse Ox O2 Delivery O2 Flow Rate FiO2 03/17/17 07:22 98.6 80 18 112/72 (85) 96 Room Air 98.6 Labs Labs Laboratory Tests Test 03/16/17 15:50 03/17/17 03:36 White Blood Count 14.1 x10^3/uL (4.0-11.0) 10.4 x10^3/uL (4.0-11.0) Red Blood Count 4.85 x10^6/uL (3.50-5.40) 4.25 x10^6/uL (3.50-5.40) Hemoglobin 14.0 g/dL (12.0-15.5) 12.4 g/dL (12.0-15.5) Hematocrit 42.8 % (36.0-47.0) 37.7 % (36.0-47.0) Mean Corpuscular Volume 88 fL (79-100) 89 fL (79-100) Mean Corpuscular Hemoglobin 29 pg (25-35) 29 pg (25-35) Mean Corpuscular Hemoglobin Concent 33 g/dL (31-37) 33 g/dL (31-37) Red Cell Distribution Width 14.5 % (11.5-14.5) 14.4 % (11.5-14.5) Platelet Count 300 x10^3/uL (140-400) 254 x10^3/uL (140-400) Neutrophils (%) (Auto) 83 % (31-73) 68 % (31-73) Lymphocytes (%) (Auto) 12 % (24-48) 24 % (24-48) Monocytes (%) (Auto) 4 % (0-9) 7 % (0-9) Eosinophils (%) (Auto) 0 % (0-3) 1 % (0-3) Basophils (%) (Auto) 1 % (0-3) 1 % (0-3) Neutrophils # (Auto) 11.7 x10^3uL (1.8-7.7) 7.1 x10^3uL (1.8-7.7) Lymphocytes # (Auto) 1.7 x10^3/uL (1.0-4.8) 2.5 x10^3/uL (1.0-4.8) Monocytes # (Auto) 0.6 x10^3/uL (0.0-1.1) 0.7 x10^3/uL (0.0-1.1) Eosinophils # (Auto) 0.0 x10^3/uL (0.0-0.7) 0.1 x10^3/uL (0.0-0.7) Basophils # (Auto) 0.1 x10^3/uL (0.0-0.2) 0.1 x10^3/uL (0.0-0.2) Sodium Level 140 mmol/L (136-145) 143 mmol/L (136-145) Potassium Level 4.3 mmol/L (3.5-5.1) 4.0 mmol/L (3.5-5.1) Chloride Level 104 mmol/L (98-107) 111 mmol/L (98-107) Carbon Dioxide Level 26 mmol/L (21-32) 26 mmol/L (21-32) Anion Gap 10 (6-14) 6 (6-14) Blood Urea Nitrogen 12 mg/dL (7-20) 11 mg/dL (7-20) Creatinine 0.7 mg/dL (0.6-1.0) 0.7 mg/dL (0.6-1.0) Estimated GFR (Cockcroft-Gault) 95.2 95.2 Glucose Level 104 mg/dL (70-99) 85 mg/dL (70-99) Calcium Level 9.5 mg/dL (8.5-10.1) 8.1 mg/dL (8.5-10.1) Total Bilirubin 0.5 mg/dL (0.2-1.0) Direct Bilirubin 0.1 mg/dL (0.0-0.2) Aspartate Amino Transf (AST/SGOT) 15 U/L (15-37) Alanine Aminotransferase (ALT/SGPT) 18 U/L (14-59) Alkaline Phosphatase 51 U/L (46-116) Total Protein 7.4 g/dL (6.4-8.2) Albumin 4.0 g/dL (3.4-5.0) Lipase 95 U/L (73-393) Laboratory Tests Test 03/16/17 15:50 03/17/17 03:36 White Blood Count 14.1 x10^3/uL (4.0-11.0) 10.4 x10^3/uL (4.0-11.0) Red Blood Count 4.85 x10^6/uL (3.50-5.40) 4.25 x10^6/uL (3.50-5.40) Hemoglobin 14.0 g/dL (12.0-15.5) 12.4 g/dL (12.0-15.5) Hematocrit 42.8 % (36.0-47.0) 37.7 % (36.0-47.0) Mean Corpuscular Volume 88 fL (79-100) 89 fL (79-100) Mean Corpuscular Hemoglobin 29 pg (25-35) 29 pg (25-35) Mean Corpuscular Hemoglobin Concent 33 g/dL (31-37) 33 g/dL (31-37) Red Cell Distribution Width 14.5 % (11.5-14.5) 14.4 % (11.5-14.5) Platelet Count 300 x10^3/uL (140-400) 254 x10^3/uL (140-400) Neutrophils (%) (Auto) 83 % (31-73) 68 % (31-73) Lymphocytes (%) (Auto) 12 % (24-48) 24 % (24-48) Monocytes (%) (Auto) 4 % (0-9) 7 % (0-9) Eosinophils (%) (Auto) 0 % (0-3) 1 % (0-3) Basophils (%) (Auto) 1 % (0-3) 1 % (0-3) Neutrophils # (Auto) 11.7 x10^3uL (1.8-7.7) 7.1 x10^3uL (1.8-7.7) Lymphocytes # (Auto) 1.7 x10^3/uL (1.0-4.8) 2.5 x10^3/uL (1.0-4.8) Monocytes # (Auto) 0.6 x10^3/uL (0.0-1.1) 0.7 x10^3/uL (0.0-1.1) Eosinophils # (Auto) 0.0 x10^3/uL (0.0-0.7) 0.1 x10^3/uL (0.0-0.7) Basophils # (Auto) 0.1 x10^3/uL (0.0-0.2) 0.1 x10^3/uL (0.0-0.2) Sodium Level 140 mmol/L (136-145) 143 mmol/L (136-145) Potassium Level 4.3 mmol/L (3.5-5.1) 4.0 mmol/L (3.5-5.1) Chloride Level 104 mmol/L (98-107) 111 mmol/L (98-107) Carbon Dioxide Level 26 mmol/L (21-32) 26 mmol/L (21-32) Anion Gap 10 (6-14) 6 (6-14) Blood Urea Nitrogen 12 mg/dL (7-20) 11 mg/dL (7-20) Creatinine 0.7 mg/dL (0.6-1.0) 0.7 mg/dL (0.6-1.0) Estimated GFR (Cockcroft-Gault) 95.2 95.2 Glucose Level 104 mg/dL (70-99) 85 mg/dL (70-99) Calcium Level 9.5 mg/dL (8.5-10.1) 8.1 mg/dL (8.5-10.1) Total Bilirubin 0.5 mg/dL (0.2-1.0) Direct Bilirubin 0.1 mg/dL (0.0-0.2) Aspartate Amino Transf (AST/SGOT) 15 U/L (15-37) Alanine Aminotransferase (ALT/SGPT) 18 U/L (14-59) Alkaline Phosphatase 51 U/L (46-116) Total Protein 7.4 g/dL (6.4-8.2) Albumin 4.0 g/dL (3.4-5.0) Lipase 95 U/L (73-393) Images Images CT reviewed Assessment/Plan Assessment/Plan Abdominal pain, RLQ--CT without findings of appendicitis leukocytosis on admission, is currently on abx difficult to determine source of pain, on abx now, WBC improved taking few clears this AM, abdominal exam stable, no acute abdominal findings-- will have Dr Ramirez review on rounds MICHELINE RAMIREZ MD 03/17/17 2232: CONSULT Allergies Allergies: Coded Allergies: methylprednisolone (Verified Allergy, Intermediate, Hives, 03/17/17) trimethoprim (Verified Adverse Reaction, Intermediate, 03/17/17) LETHARGIC sulfamethoxazole (Verified Adverse Reaction, Mild, 03/17/17) LETHARGIC Assessment/Plan Assessment/Plan Pt seen and examined. Agree with Ms. Maxwell's note Pt reports feeling better abd soft, mild TTP BLQ will ask for GI consult (complex hx) and tongue lining stitcher consult (ruptured ovarian cyst? pt with hx of hystectomy, but still with ovaries) will check US Thanks for consult! JESENIA MAXWELL APRN Mar 17, 2017 08:54 MICHELINE RAMIREZ MD Mar 17, 2017 22:32
[2017-03-17] MEDS: oxyCODONE IR 5 MG TABLET PO PRN ×3 (08:58→18:17)
[2017-03-17] MEDS ORDERED: CITALOPRAM 20 MG TABLET. PO SCH (09:00)
[2017-03-17 11:30] VITALS: BP 106/70
--- NOTE | 2017-03-17 13:01 | PDOC ---
PROGRESS NOTES Chief Complaint Chief Complaint CC abdominal pain Past Medical History Past Medical History: Anxiety, Constipation, Other Additional Past Medical Histor: small bowel obstruction Past Surgical History: Hysterectomy, Splenectomy, Other Additional Past Surgical Histo: BOWEL RESECTION, transvaginal sling, PANCREATECTOMY History of Present Illness History of Present Illness 37 y/o F with CC of abdominal pain PT complains that her abdomen is station tender with +6/10 pain PT is in mild distress and feels full, bloated and uncomfortable PT also complains of SOLIS (toridol and oxycodone given) Vitals Vitals Vital Signs Date Time Temp Pulse Resp B/P (MAP) Pulse Ox O2 Delivery O2 Flow Rate FiO2 03/17/17 11:30 98.5 66 18 106/70 (82) 96 Room Air 98.5 Physical Exam General: Alert, Oriented X3, Cooperative, mild distress Heart: Regular rate, Normal S1, Normal S2, No murmurs Lungs: Clear, Other Abdomen: Soft, Other (ND, multiple abdominal scars, umbilical/RLQ TTP, no guarding or rebound, no bowel sounds) Extremities: No clubbing, No cyanosis, No edema Skin: No rashes, No breakdown Labs LABS Laboratory Tests Test 03/16/17 15:50 03/17/17 03:36 White Blood Count 14.1 x10^3/uL (4.0-11.0) 10.4 x10^3/uL (4.0-11.0) Red Blood Count 4.85 x10^6/uL (3.50-5.40) 4.25 x10^6/uL (3.50-5.40) Hemoglobin 14.0 g/dL (12.0-15.5) 12.4 g/dL (12.0-15.5) Hematocrit 42.8 % (36.0-47.0) 37.7 % (36.0-47.0) Mean Corpuscular Volume 88 fL (79-100) 89 fL (79-100) Mean Corpuscular Hemoglobin 29 pg (25-35) 29 pg (25-35) Mean Corpuscular Hemoglobin Concent 33 g/dL (31-37) 33 g/dL (31-37) Red Cell Distribution Width 14.5 % (11.5-14.5) 14.4 % (11.5-14.5) Platelet Count 300 x10^3/uL (140-400) 254 x10^3/uL (140-400) Neutrophils (%) (Auto) 83 % (31-73) 68 % (31-73) Lymphocytes (%) (Auto) 12 % (24-48) 24 % (24-48) Monocytes (%) (Auto) 4 % (0-9) 7 % (0-9) Eosinophils (%) (Auto) 0 % (0-3) 1 % (0-3) Basophils (%) (Auto) 1 % (0-3) 1 % (0-3) Neutrophils # (Auto) 11.7 x10^3uL (1.8-7.7) 7.1 x10^3uL (1.8-7.7) Lymphocytes # (Auto) 1.7 x10^3/uL (1.0-4.8) 2.5 x10^3/uL (1.0-4.8) Monocytes # (Auto) 0.6 x10^3/uL (0.0-1.1) 0.7 x10^3/uL (0.0-1.1) Eosinophils # (Auto) 0.0 x10^3/uL (0.0-0.7) 0.1 x10^3/uL (0.0-0.7) Basophils # (Auto) 0.1 x10^3/uL (0.0-0.2) 0.1 x10^3/uL (0.0-0.2) Sodium Level 140 mmol/L (136-145) 143 mmol/L (136-145) Potassium Level 4.3 mmol/L (3.5-5.1) 4.0 mmol/L (3.5-5.1) Chloride Level 104 mmol/L (98-107) 111 mmol/L (98-107) Carbon Dioxide Level 26 mmol/L (21-32) 26 mmol/L (21-32) Anion Gap 10 (6-14) 6 (6-14) Blood Urea Nitrogen 12 mg/dL (7-20) 11 mg/dL (7-20) Creatinine 0.7 mg/dL (0.6-1.0) 0.7 mg/dL (0.6-1.0) Estimated GFR (Cockcroft-Gault) 95.2 95.2 Glucose Level 104 mg/dL (70-99) 85 mg/dL (70-99) Calcium Level 9.5 mg/dL (8.5-10.1) 8.1 mg/dL (8.5-10.1) Total Bilirubin 0.5 mg/dL (0.2-1.0) Direct Bilirubin 0.1 mg/dL (0.0-0.2) Aspartate Amino Transf (AST/SGOT) 15 U/L (15-37) Alanine Aminotransferase (ALT/SGPT) 18 U/L (14-59) Alkaline Phosphatase 51 U/L (46-116) Total Protein 7.4 g/dL (6.4-8.2) Albumin 4.0 g/dL (3.4-5.0) Lipase 95 U/L (73-393) Review of Systems Review of Systems complains of weakness tender abdomen Assessment and Plan Assessmemt and Plan Problems Medical Problems: (1) Abdominal pain Status: Acute Small Bowel Obstruction Splenectomy Pancreatectomy Hysterectomy PLAN -continue antibiotics -continue narcotics -IV fluids -monitor labs -continue home meds Problems: Comment Review of Relevant I have reviewed the following items ankit (where applicable) has been applied. Labs Laboratory Tests Test 03/16/17 15:50 03/17/17 03:36 White Blood Count 14.1 x10^3/uL (4.0-11.0) 10.4 x10^3/uL (4.0-11.0) Red Blood Count 4.85 x10^6/uL (3.50-5.40) 4.25 x10^6/uL (3.50-5.40) Hemoglobin 14.0 g/dL (12.0-15.5) 12.4 g/dL (12.0-15.5) Hematocrit 42.8 % (36.0-47.0) 37.7 % (36.0-47.0) Mean Corpuscular Volume 88 fL (79-100) 89 fL (79-100) Mean Corpuscular Hemoglobin 29 pg (25-35) 29 pg (25-35) Mean Corpuscular Hemoglobin Concent 33 g/dL (31-37) 33 g/dL (31-37) Red Cell Distribution Width 14.5 % (11.5-14.5) 14.4 % (11.5-14.5) Platelet Count 300 x10^3/uL (140-400) 254 x10^3/uL (140-400) Neutrophils (%) (Auto) 83 % (31-73) 68 % (31-73) Lymphocytes (%) (Auto) 12 % (24-48) 24 % (24-48) Monocytes (%) (Auto) 4 % (0-9) 7 % (0-9) Eosinophils (%) (Auto) 0 % (0-3) 1 % (0-3) Basophils (%) (Auto) 1 % (0-3) 1 % (0-3) Neutrophils # (Auto) 11.7 x10^3uL (1.8-7.7) 7.1 x10^3uL (1.8-7.7) Lymphocytes # (Auto) 1.7 x10^3/uL (1.0-4.8) 2.5 x10^3/uL (1.0-4.8) Monocytes # (Auto) 0.6 x10^3/uL (0.0-1.1) 0.7 x10^3/uL (0.0-1.1) Eosinophils # (Auto) 0.0 x10^3/uL (0.0-0.7) 0.1 x10^3/uL (0.0-0.7) Basophils # (Auto) 0.1 x10^3/uL (0.0-0.2) 0.1 x10^3/uL (0.0-0.2) Sodium Level 140 mmol/L (136-145) 143 mmol/L (136-145) Potassium Level 4.3 mmol/L (3.5-5.1) 4.0 mmol/L (3.5-5.1) Chloride Level 104 mmol/L (98-107) 111 mmol/L (98-107) Carbon Dioxide Level 26 mmol/L (21-32) 26 mmol/L (21-32) Anion Gap 10 (6-14) 6 (6-14) Blood Urea Nitrogen 12 mg/dL (7-20) 11 mg/dL (7-20) Creatinine 0.7 mg/dL (0.6-1.0) 0.7 mg/dL (0.6-1.0) Estimated GFR (Cockcroft-Gault) 95.2 95.2 Glucose Level 104 mg/dL (70-99) 85 mg/dL (70-99) Calcium Level 9.5 mg/dL (8.5-10.1) 8.1 mg/dL (8.5-10.1) Total Bilirubin 0.5 mg/dL (0.2-1.0) Direct Bilirubin 0.1 mg/dL (0.0-0.2) Aspartate Amino Transf (AST/SGOT) 15 U/L (15-37) Alanine Aminotransferase (ALT/SGPT) 18 U/L (14-59) Alkaline Phosphatase 51 U/L (46-116) Total Protein 7.4 g/dL (6.4-8.2) Albumin 4.0 g/dL (3.4-5.0) Lipase 95 U/L (73-393) Laboratory Tests Test 03/16/17 15:50 03/17/17 03:36 White Blood Count 14.1 x10^3/uL (4.0-11.0) 10.4 x10^3/uL (4.0-11.0) Red Blood Count 4.85 x10^6/uL (3.50-5.40) 4.25 x10^6/uL (3.50-5.40) Hemoglobin 14.0 g/dL (12.0-15.5) 12.4 g/dL (12.0-15.5) Hematocrit 42.8 % (36.0-47.0) 37.7 % (36.0-47.0) Mean Corpuscular Volume 88 fL (79-100) 89 fL (79-100) Mean Corpuscular Hemoglobin 29 pg (25-35) 29 pg (25-35) Mean Corpuscular Hemoglobin Concent 33 g/dL (31-37) 33 g/dL (31-37) Red Cell Distribution Width 14.5 % (11.5-14.5) 14.4 % (11.5-14.5) Platelet Count 300 x10^3/uL (140-400) 254 x10^3/uL (140-400) Neutrophils (%) (Auto) 83 % (31-73) 68 % (31-73) Lymphocytes (%) (Auto) 12 % (24-48) 24 % (24-48) Monocytes (%) (Auto) 4 % (0-9) 7 % (0-9) Eosinophils (%) (Auto) 0 % (0-3) 1 % (0-3) Basophils (%) (Auto) 1 % (0-3) 1 % (0-3) Neutrophils # (Auto) 11.7 x10^3uL (1.8-7.7) 7.1 x10^3uL (1.8-7.7) Lymphocytes # (Auto) 1.7 x10^3/uL (1.0-4.8) 2.5 x10^3/uL (1.0-4.8) Monocytes # (Auto) 0.6 x10^3/uL (0.0-1.1) 0.7 x10^3/uL (0.0-1.1) Eosinophils # (Auto) 0.0 x10^3/uL (0.0-0.7) 0.1 x10^3/uL (0.0-0.7) Basophils # (Auto) 0.1 x10^3/uL (0.0-0.2) 0.1 x10^3/uL (0.0-0.2) Sodium Level 140 mmol/L (136-145) 143 mmol/L (136-145) Potassium Level 4.3 mmol/L (3.5-5.1) 4.0 mmol/L (3.5-5.1) Chloride Level 104 mmol/L (98-107) 111 mmol/L (98-107) Carbon Dioxide Level 26 mmol/L (21-32) 26 mmol/L (21-32) Anion Gap 10 (6-14) 6 (6-14) Blood Urea Nitrogen 12 mg/dL (7-20) 11 mg/dL (7-20) Creatinine 0.7 mg/dL (0.6-1.0) 0.7 mg/dL (0.6-1.0) Estimated GFR (Cockcroft-Gault) 95.2 95.2 Glucose Level 104 mg/dL (70-99) 85 mg/dL (70-99) Calcium Level 9.5 mg/dL (8.5-10.1) 8.1 mg/dL (8.5-10.1) Total Bilirubin 0.5 mg/dL (0.2-1.0) Direct Bilirubin 0.1 mg/dL (0.0-0.2) Aspartate Amino Transf (AST/SGOT) 15 U/L (15-37) Alanine Aminotransferase (ALT/SGPT) 18 U/L (14-59) Alkaline Phosphatase 51 U/L (46-116) Total Protein 7.4 g/dL (6.4-8.2) Albumin 4.0 g/dL (3.4-5.0) Lipase 95 U/L (73-393) Medications Current Medications Ondansetron HCl (Zofran) 4 mg 1X ONCE IV Last administered on 03/16/17 16:02 ; Start 03/16/17 at 15:45; Stop 03/16/17 at 15:48; Status DC Hydromorphone HCl (Dilaudid) 0.5 mg PRN Q30MIN PRN IV moderate to seevere pain Last administered on 03/16/17 18:33; Start 03/16/17 at 15:45; Stop 03/16/17 at 18:33; Status DC Sodium Chloride 1,000 ml @ 1,000 mls/hr 1X ONCE IV Last administered on 16:02; Start 03/16/17 at 15:45; Stop 03/16/17 at 16:44; Status DC Iohexol (Omnipaque 300 Mg/ml) 75 ml 1X ONCE IV Last administered on 03/16/17 16:38; Start 03/16/17 at 16:30; Stop 03/16/17 at 16:31; Status DC Morphine Sulfate 2 mg PRN Q1HR PRN IV SEVERE PAIN Last administered on 10:59; Start 03/16/17 at 17:00 Ondansetron HCl (Zofran) 4 mg PRN Q8HRS PRN IV NAUSEA/VOMITING Last administered on 03/17/17 07:08; Start 03/16/17 at 17:45; Stop 03/17/17 at 17:44 Morphine Sulfate 2 mg PRN Q2HR PRN IV PAIN Last administered on 03/17/17 07:07 ; Start 03/16/17 at 17:45; Stop 03/17/17 at 17:44 Sodium Chloride 1,000 ml @ 125 mls/hr Q8H IV Last administered on 03/17/17 04 :26; Start 03/16/17 at 17:34; Stop 03/17/17 at 17:33 Ketorolac Tromethamine (Toradol) 15 mg PRN Q6HRS PRN IV PAIN Last administered on 03/17/17 07:08; Start 03/16/17 at 21:15; Stop 03/21/17 at 21:14 Ibuprofen (Motrin) 400 mg PRN Q6HRS PRN PO INFLAMMATION; Start 03/16/17 at 21: 15 Alprazolam (Xanax) 0.5 mg PRN Q4HRS PRN PO ANXIETY / AGITATION; Start 03/16/17 at 21:15 Docusate Sodium (Colace) 200 mg PRN DAILY PRN PO CONSTIPATION; Start 03/16/17 at 21:15 Magnesium Oxide (Magnesium Oxide) 800 mg DAILY PO Last administered on 08:53; Start 03/17/17 at 09:00 Oxycodone HCl (Roxicodone) 5 mg PRN Q4HRS PRN PO PAIN; Start 03/16/17 at 21:15 Trazodone HCl (Desyrel) 50 mg PRN QHS PRN PO INSOMNIA; Start 03/16/17 at 21:15 Citalopram Hydrobromide (CeleXA) 40 mg DAILY PO ; Start 03/17/17 at 09:00; Stop 03/17/17 at 09:00; Status DC Oxycodone HCl (Roxicodone) 10 mg PRN Q4HRS PRN PO PAIN Last administered on 08:58; Start 03/16/17 at 21:15 Citalopram Hydrobromide (CeleXA) 40 mg HS PO Last administered on 03/16/17 21: 37; Start 03/16/17 at 21:30 Ceftriaxone Sodium 1 gm/ Sodium Chloride 50 ml @ 100 mls/hr Q24H IV ; Start at 21:00 Ceftriaxone Sodium 1 gm/ Sodium Chloride 50 ml @ 100 mls/hr ONCE ONCE IV Last administered on 03/16/17 23:51; Start 03/16/17 at 23:45; Stop 03/17/17 at 00:14; Status DC Active Scripts Active Reported Oxycodone Hcl 10 Mg Tablet 10 Mg PO PRN Q4HRS PRN Oxycodone Hcl 5 Mg Tablet 5 Mg PO PRN Q4HRS PRN Colace (Docusate Sodium) 100 Mg Capsule 2 Cap PO PRN DAILY PRN Magnesium Oxide 400 Mg Tablet 2 Tab PO DAILY Xanax (Alprazolam) 0.5 Mg Tablet 1 Tab PO PRN Q4HRS PRN Trazodone Hcl 50 Mg Tablet 1 Tab PO PRN PRN Citalopram Hbr (Citalopram Hydrobromide) 40 Mg Tablet 1 Tab PO HS Vitals/I & O Vital Sign - Last 24 Hours 03/16/17 03/16/17 03/16/17 03/16/17 15:25 15:37 16:03 16:27 Temp 98.0 98.0 Pulse 90 70 72 Resp 18 18 16 20 B/P (MAP) 103/66 (78) 107/69 (82) 111/65 (80) Pulse Ox 100 97 97 96 O2 Delivery Room Air Room Air Room Air Room Air 03/16/17 03/16/17 03/16/17 03/16/17 16:36 16:57 17:05 17:27 Pulse 76 74 Resp 16 20 16 20 B/P (MAP) 109/63 (78) 106/68 (81) Pulse Ox 97 96 98 96 O2 Delivery Room Air Room Air Room Air Room Air 03/16/17 03/16/17 03/16/17 03/16/17 17:41 17:57 18:27 18:33 Pulse 72 84 Resp 16 12 20 14 B/P (MAP) 100/62 (75) 116/70 (85) Pulse Ox 98 97 96 97 O2 Delivery Room Air Room Air Room Air Room Air 03/16/17 03/16/17 03/16/17 03/16/17 19:40 19:43 20:35 22:51 Temp 98.2 98.2 Pulse 65 Resp 20 17 20 B/P (MAP) 103/62 (76) Pulse Ox 95 O2 Delivery Room Air Room Air Room Air Room Air 03/16/17 03/17/17 03/17/17 03/17/17 23:00 02:08 03:00 04:29 Temp 98.5 98.6 98.5 98.6 Pulse 69 78 Resp 17 20 17 20 B/P (MAP) 94/51 (65) 106/63 (77) Pulse Ox 96 96 O2 Delivery Room Air Room Air Room Air Room Air 03/17/17 03/17/17 03/17/17 03/17/17 04:59 07:07 07:22 08:00 Temp 98.6 98.6 Pulse 80 Resp 20 20 18 B/P (MAP) 112/72 (85) Pulse Ox 96 O2 Delivery Room Air Room Air Room Air 03/17/17 03/17/17 03/17/17 03/17/17 08:58 08:59 10:59 11:01 Pulse Ox 96 96 96 96 O2 Delivery Room Air Room Air Room Air Room Air 03/17/17 11:30 Temp 98.5 98.5 Pulse 66 Resp 18 B/P (MAP) 106/70 (82) Pulse Ox 96 O2 Delivery Room Air Intake and Output 03/16/17 03/16/17 03/17/17 15:00 23:00 07:00 Intake Total 1000 ml 1170 ml Balance 1000 ml 1170 ml NADJA FARR III DO Mar 17, 2017 13:01
[2017-03-17 15:04] VITALS: BP 110/79
[2017-03-17] MEDS ORDERED: KETOROLAC 15 MG/ML VIAL. IV ONE ×2 (15:45→16:00)
[2017-03-17] MEDS ORDERED: diphenhydrAMINE 50 MG/ML VIAL IVP ONE (16:00)
[2017-03-17] MEDS ORDERED: METOCLOPRAMIDE HCL 10 MG/2 ML VIAL. IV ONE (16:00)
[2017-03-17 19:00] VITALS: BP 126/82
[2017-03-17] MEDS: CITALOPRAM 20 MG TABLET. PO SCH (20:13)
[2017-03-17] MEDS ORDERED: ONDANSETRON PF 4 MG/2 ML VIAL. IV PRN (20:30)
[2017-03-17 23:00] VITALS: BP 112/68
[2017-03-18] MEDS: oxyCODONE IR 5 MG TABLET PO PRN ×3 (00:32→11:30)
[2017-03-18 03:00] VITALS: BP 113/71
[2017-03-18] MEDS: MORPHINE SULFATE 2 MG/ML DISP.SYRIN. IV PRN (05:17)
[2017-03-18 07:25] VITALS: BP 127/86
[2017-03-18] MEDS: MAGNESIUM OXIDE 400 MG TABLET PO SCH (08:29)
--- NOTE | 2017-03-18 09:44 | PDOC ---
JESENIA MAXWELL MANAGER OF LEARNING 03/18/17 0944: SURGICAL PROGRESS NOTE Subjective tolerating diet much improved, now very mild RLQ achy Vital Signs Vital Signs Date Time Temp Pulse Resp B/P (MAP) Pulse Ox O2 Delivery O2 Flow Rate FiO2 03/18/17 08:00 Room Air 03/18/17 07:25 98.0 69 18 127/86 (100) 100 98.0 I&O Intake and Output 03/18/17 07:00 Intake Total 2250 ml Balance 2250 ml Intake Oral 2200 ml IV Total 50 ml # Voids 6 General: Alert, Oriented X3, Cooperative, No acute distress Abdomen: Soft, No tenderness Labs Laboratory Tests Test 03/16/17 15:50 03/17/17 03:36 White Blood Count 14.1 x10^3/uL (4.0-11.0) 10.4 x10^3/uL (4.0-11.0) Red Blood Count 4.85 x10^6/uL (3.50-5.40) 4.25 x10^6/uL (3.50-5.40) Hemoglobin 14.0 g/dL (12.0-15.5) 12.4 g/dL (12.0-15.5) Hematocrit 42.8 % (36.0-47.0) 37.7 % (36.0-47.0) Mean Corpuscular Volume 88 fL (79-100) 89 fL (79-100) Mean Corpuscular Hemoglobin 29 pg (25-35) 29 pg (25-35) Mean Corpuscular Hemoglobin Concent 33 g/dL (31-37) 33 g/dL (31-37) Red Cell Distribution Width 14.5 % (11.5-14.5) 14.4 % (11.5-14.5) Platelet Count 300 x10^3/uL (140-400) 254 x10^3/uL (140-400) Neutrophils (%) (Auto) 83 % (31-73) 68 % (31-73) Lymphocytes (%) (Auto) 12 % (24-48) 24 % (24-48) Monocytes (%) (Auto) 4 % (0-9) 7 % (0-9) Eosinophils (%) (Auto) 0 % (0-3) 1 % (0-3) Basophils (%) (Auto) 1 % (0-3) 1 % (0-3) Neutrophils # (Auto) 11.7 x10^3uL (1.8-7.7) 7.1 x10^3uL (1.8-7.7) Lymphocytes # (Auto) 1.7 x10^3/uL (1.0-4.8) 2.5 x10^3/uL (1.0-4.8) Monocytes # (Auto) 0.6 x10^3/uL (0.0-1.1) 0.7 x10^3/uL (0.0-1.1) Eosinophils # (Auto) 0.0 x10^3/uL (0.0-0.7) 0.1 x10^3/uL (0.0-0.7) Basophils # (Auto) 0.1 x10^3/uL (0.0-0.2) 0.1 x10^3/uL (0.0-0.2) Sodium Level 140 mmol/L (136-145) 143 mmol/L (136-145) Potassium Level 4.3 mmol/L (3.5-5.1) 4.0 mmol/L (3.5-5.1) Chloride Level 104 mmol/L (98-107) 111 mmol/L (98-107) Carbon Dioxide Level 26 mmol/L (21-32) 26 mmol/L (21-32) Anion Gap 10 (6-14) 6 (6-14) Blood Urea Nitrogen 12 mg/dL (7-20) 11 mg/dL (7-20) Creatinine 0.7 mg/dL (0.6-1.0) 0.7 mg/dL (0.6-1.0) Estimated GFR (Cockcroft-Gault) 95.2 95.2 Glucose Level 104 mg/dL (70-99) 85 mg/dL (70-99) Calcium Level 9.5 mg/dL (8.5-10.1) 8.1 mg/dL (8.5-10.1) Total Bilirubin 0.5 mg/dL (0.2-1.0) Direct Bilirubin 0.1 mg/dL (0.0-0.2) Aspartate Amino Transf (AST/SGOT) 15 U/L (15-37) Alanine Aminotransferase (ALT/SGPT) 18 U/L (14-59) Alkaline Phosphatase 51 U/L (46-116) Total Protein 7.4 g/dL (6.4-8.2) Albumin 4.0 g/dL (3.4-5.0) Lipase 95 U/L (73-393) Problem List Problems Medical Problems: (1) Abdominal pain Status: Acute Assessment/Plan abd pain ? ovarian cyst--US pending possible DC home if continues to do well Problems: MICHELINE CASAS MD 03/18/17 1435: SURGICAL PROGRESS NOTE Assessment/Plan Pt seen and examined. Agree with Ms. Maxwell's note Pt feels better Dr. Lund's plan reviewed, agree with plan for excision Problems: JESENIA MAXWELL APRN Mar 18, 2017 09:44 MICHELINE CASAS MD Mar 18, 2017 14:35
[2017-03-18 11:21] VITALS: BP 116/72
--- NOTE | 2017-03-18 12:15 | RAD ---
Transabdominal and transvaginal sonography of the pelvis Clinical indications: Severe right lower quadrant pelvic pain beginning 3 days ago. History of hysterectomy. Transabdominal sonography: The uterus is surgically absent. The vaginal cuff is unremarkable. Urinary bladder wall is smooth and no intraluminal echodensities or masses are seen. Neither ovary is visualized by transabdominal exam. Therefore, transvaginal sonography will be performed. No adnexal masses are seen. Transvaginal sonography: The vaginal cuff is unremarkable. A small amount of free fluid is seen within the pelvis. The right ovary measures 2.6 cm and 4.2 cm and 2.8 cm respectively. There is a hypoechoic solid appearing nodule of the right ovary measuring 18 mm in greatest dimension. There is a cyst of the right ovary measuring 18 mm. Color Doppler flow is seen within the right ovary. The left ovary measures 1.2 cm and 2.5 cm and 1.8 cm in size and is normal. Color Doppler flow is seen within the left ovary. No adnexal mass is seen. IMPRESSION: There is a hypoechoic solid-appearing nodule of the right ovary measuring 18 mm in greatest dimension. A similar-appearing nodule was seen in this area on a study dated January 18, 2016 and is unchanged in size. Therefore, this may represent a small ovarian fibroma or a new nodule (that just so happens to be in the same location as the previous nodule) representing an involuting corpus luteum.. There is an 18 mm complex cyst of the right ovary. The left ovary is normal. A small amount of free fluid is seen within the pelvis.
--- NOTE | 2017-03-18 13:46 | PDOC2 ---
CONSULT Date of Consult Date of Consult DATE: 03/18/17 TIME: 13:40 Reason for Consult Reason for Consult: Right ovarian cyst Referring Physician Referring Physician: Dr. Galindo Identification/Chief Complaint Chief Complaint abd pain Problems: Source Source: Chart review, Patient History of Present Illness Reason for Visit: 37 y/o presented to ED with c/o abd pain. Pelvic sono indicated ROV complext cyst of 2-3 cm size. Pt. with h/o multiple abd surgeries including hysterectomy , spleenectomy, partial pancreaectomy and bowel resection. Pt. with severe anxiety about ovarian cyst. Counseled on ovarian cysts and recommended treatment. Past Medical History Cardiovascular: No pertinent hx Pulmonary: No pertinent hx GI: Constipation Heme/Onc: No pertinent hx Psych: Anxiety, Depression Infectious disease: No pertinent hx Past Surgical History Past Surgical History: Hysterectomy, Colon Resection, Other (splenectomy, pancreatectomy, bowel resection, hernia repair with mesh ) Family History Family History: Family History Unknown Social History Quit ALCOHOL: none Drugs: None Lives: with Family Current Problem List Problem List Problems Medical Problems: (1) Abdominal pain Status: Acute Current Medications Current Medications Current Medications Ondansetron HCl (Zofran) 4 mg 1X ONCE IV Last administered on 03/16/17 16:02 ; Start 03/16/17 at 15:45; Stop 03/16/17 at 15:48; Status DC Hydromorphone HCl (Dilaudid) 0.5 mg PRN Q30MIN PRN IV moderate to seevere pain Last administered on 03/16/17 18:33; Start 03/16/17 at 15:45; Stop 03/16/17 at 18:33; Status DC Sodium Chloride 1,000 ml @ 1,000 mls/hr 1X ONCE IV Last administered on 16:02; Start 03/16/17 at 15:45; Stop 03/16/17 at 16:44; Status DC Iohexol (Omnipaque 300 Mg/ml) 75 ml 1X ONCE IV Last administered on 03/16/17 16:38; Start 03/16/17 at 16:30; Stop 03/16/17 at 16:31; Status DC Morphine Sulfate 2 mg PRN Q1HR PRN IV SEVERE PAIN Last administered on 15:23; Start 03/16/17 at 17:00; Stop 03/17/17 at 15:25; Status DC Ondansetron HCl (Zofran) 4 mg PRN Q8HRS PRN IV NAUSEA/VOMITING Last administered on 03/17/17 15:24; Start 03/16/17 at 17:45; Stop 03/17/17 at 17:44 ; Status DC Morphine Sulfate 2 mg PRN Q2HR PRN IV PAIN Last administered on 03/17/17 07:07 ; Start 03/16/17 at 17:45; Stop 03/17/17 at 15:09; Status DC Sodium Chloride 1,000 ml @ 125 mls/hr Q8H IV Last administered on 03/17/17 13 :09; Start 03/16/17 at 17:34; Stop 03/17/17 at 17:33; Status DC Ketorolac Tromethamine (Toradol) 15 mg PRN Q6HRS PRN IV MILD - MODERATE PAIN Last administered on 03/17/17 13:16; Start 03/16/17 at 21:15; Stop 03/21/17 at 21:14 Ibuprofen (Motrin) 400 mg PRN Q6HRS PRN PO INFLAMMATION; Start 03/16/17 at 21: 15 Alprazolam (Xanax) 0.5 mg PRN Q4HRS PRN PO ANXIETY / AGITATION; Start 03/16/17 at 21:15 Docusate Sodium (Colace) 200 mg PRN DAILY PRN PO CONSTIPATION; Start 03/16/17 at 21:15 Magnesium Oxide (Magnesium Oxide) 800 mg DAILY PO Last administered on 08:29; Start 03/17/17 at 09:00 Oxycodone HCl (Roxicodone) 5 mg PRN Q4HRS PRN PO PAIN; Start 03/16/17 at 21:15 Trazodone HCl (Desyrel) 50 mg PRN QHS PRN PO INSOMNIA; Start 03/16/17 at 21:15 Citalopram Hydrobromide (CeleXA) 40 mg DAILY PO ; Start 03/17/17 at 09:00; Stop 03/17/17 at 09:00; Status DC Oxycodone HCl (Roxicodone) 10 mg PRN Q4HRS PRN PO PAIN Last administered on 11:30; Start 03/16/17 at 21:15 Citalopram Hydrobromide (CeleXA) 40 mg HS PO Last administered on 03/17/17 20: 13; Start 03/16/17 at 21:30 Ceftriaxone Sodium 1 gm/ Sodium Chloride 50 ml @ 100 mls/hr Q24H IV Last administered on 03/17/17 20:48; Start 03/17/17 at 21:00 Ceftriaxone Sodium 1 gm/ Sodium Chloride 50 ml @ 100 mls/hr ONCE ONCE IV Last administered on 03/16/17 23:51; Start 03/16/17 at 23:45; Stop 03/17/17 at 00:14; Status DC Metoclopramide HCl (Reglan) 10 mg 1X ONCE IV Last administered on 03/17/17 20 :08; Start 03/17/17 at 16:00; Stop 03/17/17 at 16:01; Status DC Ketorolac Tromethamine (Toradol) 10 mg 1X ONCE IV ; Start 03/17/17 at 15:45; Stop 03/17/17 at 15:46; Status Cancel Diphenhydramine HCl (Benadryl) 25 mg 1X ONCE IVP Last administered on 20:08; Start 03/17/17 at 16:00; Stop 03/17/17 at 16:01; Status DC Ketorolac Tromethamine (Toradol) 15 mg 1X ONCE IV Last administered on 20:08; Start 03/17/17 at 16:00; Stop 03/17/17 at 16:01; Status DC Morphine Sulfate 2 mg PRN Q2HR PRN IV SEVERE PAIN Last administered on 05:17; Start 03/17/17 at 20:15 Ondansetron HCl (Zofran) 4 mg PRN Q8HRS PRN IV NAUSEA/VOMITING; Start 03/17/17 at 20:30 Lorazepam (Ativan) 1 mg PRN Q6HRS PRN IV ANXIETY / AGITATION; Start 03/18/17 at 13:45 Active Scripts Active Reported Oxycodone Hcl 10 Mg Tablet 10 Mg PO PRN Q4HRS PRN Oxycodone Hcl 5 Mg Tablet 5 Mg PO PRN Q4HRS PRN Colace (Docusate Sodium) 100 Mg Capsule 2 Cap PO PRN DAILY PRN Magnesium Oxide 400 Mg Tablet 2 Tab PO DAILY Xanax (Alprazolam) 0.5 Mg Tablet 1 Tab PO PRN Q4HRS PRN Trazodone Hcl 50 Mg Tablet 1 Tab PO PRN PRN Citalopram Hbr (Citalopram Hydrobromide) 40 Mg Tablet 1 Tab PO HS Allergies Allergies: Coded Allergies: methylprednisolone (Verified Allergy, Intermediate, Hives, 03/17/17) trimethoprim (Verified Adverse Reaction, Intermediate, 03/17/17) LETHARGIC sulfamethoxazole (Verified Adverse Reaction, Mild, 03/17/17) LETHARGIC ROS General: YES: Malaise PSYCHOLOGICAL ROS: YES: Anxiety, Concentration difficultie, No: Behavioral Disorder, Decreased libido, Depression, Disorientation, Hallucinations, Hostility, Irritablity, Memory difficulties, Mood Swings, Obsessive thoughts, Physical abuse, Sexual abuse, Sleep disturbances, Suicidal ideation, Other Eyes: No Blurry vision, No Decreased vision, No Double vision, No Dry eyes, No Excessive tearing, No Eye Pain, No Itchy Eyes, No Loss of vision, No Photophobia , No Scotomata, No Uses contacts, No Uses glasses, No Other HEENT: No: Heacaches, Visual Changes, Hearing change, Nasal congestion, Nasal discharge, Oral lesions, Sinus pain, Sore Throat, Epistaxis, Sneezing, Snoring, Tinnitus, Vertigo, Vocal changes, Other ALLERGY AND IMMUNOLOGY: No: Hives, Insect Bite Sensitivity, Itchy/Watery Eyes, Nasal Congestion, Post Nasal Drip, Seasonal Allergies, Other Hematological and Lymphatic: No: Bleeding Problems, Blood Clots, Blood Transfusions, Brusing, Night Sweats, Pallor, Swollen Lymph Nodes, Other ENDOCRINE: No: Breast Changes, Galactorrhea, Hair Pattern Changes, Hot Flashes , Malaise/lethargy, Mood Swings, Palpitations, Polydipsia/polyuria, Skin Changes , Temperature Intolerance, Unexpected Weight Changes, Other Breast: No New/Changing Breast Lumps, No Nipple changes, No Nipple discharge, No Other Respiratory: No: Cough, Hemoptysis, Orthopnea, Pleuritic Pain, Shortness of breath, SOB with excertion, Sputum Changes, Stridor, Tachypnea, Wheezing, Other Cardiovascular: No Chest Pain, No Palpitations, No Orthopnea, No Paroxysmal Noc. Dyspnea, No Edema, No Lt Headedness, No Other Gastrointestinal: Yes Abdominal Pain, No Nausea, No Vomiting, No Diarrhea, No Constipation, No Melena, No Hematochezia, No Other Genitourinary: No Dysuria, No Frequency, No Incontinence, No Hematuria, No Retention, No Discharge, No Urgency, No Pain, No Flank Pain, No Other, No , No , No , No , No , No , No Neurological: No Behavorial Changes, No Bowel/Bladder ControlChng, No Confusion , No Dizziness, No Gait Disturbance, No Headaches, No Impaired Coord/balance, No Memory Loss, No Numbness/Tingling, No Seizures, No Speech Problems, No Tremors, No Visual Changes, No Weakness, No Other Skin: No Dry Skin, No Eczema, No Hair Changes, No Lumps, No Mole Changes, No Mottling, No Nail Changes, No Pruritus, No Rash, No Skin Lesion Changes, No Other, No Acne Physical Exam General: Alert, Oriented X3, Cooperative HEENT: Atraumatic Lungs: Clear to auscultation Heart: Regular rate Abdomen: Normal bowel sounds, Soft, Other (Pelvic: deferred.) Vitals VITALS Vital Signs Date Time Temp Pulse Resp B/P (MAP) Pulse Ox O2 Delivery O2 Flow Rate FiO2 03/18/17 12:30 100 Room Air 03/18/17 11:21 97.7 81 19 116/72 (87) 97.7 Labs Labs Laboratory Tests Test 03/16/17 15:50 03/17/17 03:36 White Blood Count 14.1 x10^3/uL (4.0-11.0) 10.4 x10^3/uL (4.0-11.0) Red Blood Count 4.85 x10^6/uL (3.50-5.40) 4.25 x10^6/uL (3.50-5.40) Hemoglobin 14.0 g/dL (12.0-15.5) 12.4 g/dL (12.0-15.5) Hematocrit 42.8 % (36.0-47.0) 37.7 % (36.0-47.0) Mean Corpuscular Volume 88 fL (79-100) 89 fL (79-100) Mean Corpuscular Hemoglobin 29 pg (25-35) 29 pg (25-35) Mean Corpuscular Hemoglobin Concent 33 g/dL (31-37) 33 g/dL (31-37) Red Cell Distribution Width 14.5 % (11.5-14.5) 14.4 % (11.5-14.5) Platelet Count 300 x10^3/uL (140-400) 254 x10^3/uL (140-400) Neutrophils (%) (Auto) 83 % (31-73) 68 % (31-73) Lymphocytes (%) (Auto) 12 % (24-48) 24 % (24-48) Monocytes (%) (Auto) 4 % (0-9) 7 % (0-9) Eosinophils (%) (Auto) 0 % (0-3) 1 % (0-3) Basophils (%) (Auto) 1 % (0-3) 1 % (0-3) Neutrophils # (Auto) 11.7 x10^3uL (1.8-7.7) 7.1 x10^3uL (1.8-7.7) Lymphocytes # (Auto) 1.7 x10^3/uL (1.0-4.8) 2.5 x10^3/uL (1.0-4.8) Monocytes # (Auto) 0.6 x10^3/uL (0.0-1.1) 0.7 x10^3/uL (0.0-1.1) Eosinophils # (Auto) 0.0 x10^3/uL (0.0-0.7) 0.1 x10^3/uL (0.0-0.7) Basophils # (Auto) 0.1 x10^3/uL (0.0-0.2) 0.1 x10^3/uL (0.0-0.2) Sodium Level 140 mmol/L (136-145) 143 mmol/L (136-145) Potassium Level 4.3 mmol/L (3.5-5.1) 4.0 mmol/L (3.5-5.1) Chloride Level 104 mmol/L (98-107) 111 mmol/L (98-107) Carbon Dioxide Level 26 mmol/L (21-32) 26 mmol/L (21-32) Anion Gap 10 (6-14) 6 (6-14) Blood Urea Nitrogen 12 mg/dL (7-20) 11 mg/dL (7-20) Creatinine 0.7 mg/dL (0.6-1.0) 0.7 mg/dL (0.6-1.0) Estimated GFR (Cockcroft-Gault) 95.2 95.2 Glucose Level 104 mg/dL (70-99) 85 mg/dL (70-99) Calcium Level 9.5 mg/dL (8.5-10.1) 8.1 mg/dL (8.5-10.1) Total Bilirubin 0.5 mg/dL (0.2-1.0) Direct Bilirubin 0.1 mg/dL (0.0-0.2) Aspartate Amino Transf (AST/SGOT) 15 U/L (15-37) Alanine Aminotransferase (ALT/SGPT) 18 U/L (14-59) Alkaline Phosphatase 51 U/L (46-116) Total Protein 7.4 g/dL (6.4-8.2) Albumin 4.0 g/dL (3.4-5.0) Lipase 95 U/L (73-393) Assessment/Plan Assessment/Plan A: ROV complex cyst Severe anxiety P: Plan for LPSC ROV cystectomy tomorrow. Counseled on risks, benefits and expectations of surgery. Thank you for consult. ALISON HUITRON Jr, MD Mar 18, 2017 13:46
--- NOTE | 2017-03-18 13:59 | PDOC ---
PROGRESS NOTES Chief Complaint Chief Complaint CC abdominal pain Anxiety Small bowel obstruction Hysterectomy Splenectomy Bowel Resection Pancreatectomy History of Present Illness History of Present Illness 37 y/o F with CC of abdominal pain PT states that she is feeling much better but abdomen is still a little tender WORK ORDER CLERK was consulted and found complex cyst (surgery will be tomorrow) pt is nervous and anxious about the cyst ativan PRN 1 mg Q6 Vitals Vitals Vital Signs Date Time Temp Pulse Resp B/P (MAP) Pulse Ox O2 Delivery O2 Flow Rate FiO2 03/18/17 12:30 100 Room Air 03/18/17 11:21 97.7 81 19 116/72 (87) 97.7 Physical Exam General: Alert, Oriented X3, Cooperative, No acute distress Heart: Regular rate, Normal S1, Normal S2, No murmurs Lungs: Clear, Other Abdomen: Normal bowel sounds, Soft, Other (Pelvic: deferred.) Extremities: No clubbing, No cyanosis, No edema Skin: No rashes, No breakdown Review of Systems Review of Systems pt was nervous about the complex cyst pt complained of abdominal tenderness Assessment and Plan Assessmemt and Plan CC abdominal pain Anxiety Small bowel obstruction Hysterectomy Splenectomy Bowel Resection Pancreatectomy PLAN -awaiting surgery tomorrow (WORK ORDER CLERK consulted) -continue antibiotics -continue narcotics for pain management -zofran PRN -ativan 1 mg q6 PRN Problems: Comment Review of Relevant I have reviewed the following items ankit (where applicable) has been applied. Labs Laboratory Tests Test 03/16/17 15:50 03/17/17 03:36 White Blood Count 14.1 x10^3/uL (4.0-11.0) 10.4 x10^3/uL (4.0-11.0) Red Blood Count 4.85 x10^6/uL (3.50-5.40) 4.25 x10^6/uL (3.50-5.40) Hemoglobin 14.0 g/dL (12.0-15.5) 12.4 g/dL (12.0-15.5) Hematocrit 42.8 % (36.0-47.0) 37.7 % (36.0-47.0) Mean Corpuscular Volume 88 fL (79-100) 89 fL (79-100) Mean Corpuscular Hemoglobin 29 pg (25-35) 29 pg (25-35) Mean Corpuscular Hemoglobin Concent 33 g/dL (31-37) 33 g/dL (31-37) Red Cell Distribution Width 14.5 % (11.5-14.5) 14.4 % (11.5-14.5) Platelet Count 300 x10^3/uL (140-400) 254 x10^3/uL (140-400) Neutrophils (%) (Auto) 83 % (31-73) 68 % (31-73) Lymphocytes (%) (Auto) 12 % (24-48) 24 % (24-48) Monocytes (%) (Auto) 4 % (0-9) 7 % (0-9) Eosinophils (%) (Auto) 0 % (0-3) 1 % (0-3) Basophils (%) (Auto) 1 % (0-3) 1 % (0-3) Neutrophils # (Auto) 11.7 x10^3uL (1.8-7.7) 7.1 x10^3uL (1.8-7.7) Lymphocytes # (Auto) 1.7 x10^3/uL (1.0-4.8) 2.5 x10^3/uL (1.0-4.8) Monocytes # (Auto) 0.6 x10^3/uL (0.0-1.1) 0.7 x10^3/uL (0.0-1.1) Eosinophils # (Auto) 0.0 x10^3/uL (0.0-0.7) 0.1 x10^3/uL (0.0-0.7) Basophils # (Auto) 0.1 x10^3/uL (0.0-0.2) 0.1 x10^3/uL (0.0-0.2) Sodium Level 140 mmol/L (136-145) 143 mmol/L (136-145) Potassium Level 4.3 mmol/L (3.5-5.1) 4.0 mmol/L (3.5-5.1) Chloride Level 104 mmol/L (98-107) 111 mmol/L (98-107) Carbon Dioxide Level 26 mmol/L (21-32) 26 mmol/L (21-32) Anion Gap 10 (6-14) 6 (6-14) Blood Urea Nitrogen 12 mg/dL (7-20) 11 mg/dL (7-20) Creatinine 0.7 mg/dL (0.6-1.0) 0.7 mg/dL (0.6-1.0) Estimated GFR (Cockcroft-Gault) 95.2 95.2 Glucose Level 104 mg/dL (70-99) 85 mg/dL (70-99) Calcium Level 9.5 mg/dL (8.5-10.1) 8.1 mg/dL (8.5-10.1) Total Bilirubin 0.5 mg/dL (0.2-1.0) Direct Bilirubin 0.1 mg/dL (0.0-0.2) Aspartate Amino Transf (AST/SGOT) 15 U/L (15-37) Alanine Aminotransferase (ALT/SGPT) 18 U/L (14-59) Alkaline Phosphatase 51 U/L (46-116) Total Protein 7.4 g/dL (6.4-8.2) Albumin 4.0 g/dL (3.4-5.0) Lipase 95 U/L (73-393) Medications Current Medications Ondansetron HCl (Zofran) 4 mg 1X ONCE IV Last administered on 03/16/17 16:02 ; Start 03/16/17 at 15:45; Stop 03/16/17 at 15:48; Status DC Hydromorphone HCl (Dilaudid) 0.5 mg PRN Q30MIN PRN IV moderate to seevere pain Last administered on 03/16/17 18:33; Start 03/16/17 at 15:45; Stop 03/16/17 at 18:33; Status DC Sodium Chloride 1,000 ml @ 1,000 mls/hr 1X ONCE IV Last administered on 16:02; Start 03/16/17 at 15:45; Stop 03/16/17 at 16:44; Status DC Iohexol (Omnipaque 300 Mg/ml) 75 ml 1X ONCE IV Last administered on 03/16/17 16:38; Start 03/16/17 at 16:30; Stop 03/16/17 at 16:31; Status DC Morphine Sulfate 2 mg PRN Q1HR PRN IV SEVERE PAIN Last administered on 15:23; Start 03/16/17 at 17:00; Stop 03/17/17 at 15:25; Status DC Ondansetron HCl (Zofran) 4 mg PRN Q8HRS PRN IV NAUSEA/VOMITING Last administered on 03/17/17 15:24; Start 03/16/17 at 17:45; Stop 03/17/17 at 17:44 ; Status DC Morphine Sulfate 2 mg PRN Q2HR PRN IV PAIN Last administered on 03/17/17 07:07 ; Start 03/16/17 at 17:45; Stop 03/17/17 at 15:09; Status DC Sodium Chloride 1,000 ml @ 125 mls/hr Q8H IV Last administered on 03/17/17 13 :09; Start 03/16/17 at 17:34; Stop 03/17/17 at 17:33; Status DC Ketorolac Tromethamine (Toradol) 15 mg PRN Q6HRS PRN IV MILD - MODERATE PAIN Last administered on 03/17/17 13:16; Start 03/16/17 at 21:15; Stop 03/21/17 at 21:14 Ibuprofen (Motrin) 400 mg PRN Q6HRS PRN PO INFLAMMATION; Start 03/16/17 at 21: 15 Alprazolam (Xanax) 0.5 mg PRN Q4HRS PRN PO ANXIETY / AGITATION; Start 03/16/17 at 21:15 Docusate Sodium (Colace) 200 mg PRN DAILY PRN PO CONSTIPATION; Start 03/16/17 at 21:15 Magnesium Oxide (Magnesium Oxide) 800 mg DAILY PO Last administered on 08:29; Start 03/17/17 at 09:00 Oxycodone HCl (Roxicodone) 5 mg PRN Q4HRS PRN PO PAIN; Start 03/16/17 at 21:15 Trazodone HCl (Desyrel) 50 mg PRN QHS PRN PO INSOMNIA; Start 03/16/17 at 21:15 Citalopram Hydrobromide (CeleXA) 40 mg DAILY PO ; Start 03/17/17 at 09:00; Stop 03/17/17 at 09:00; Status DC Oxycodone HCl (Roxicodone) 10 mg PRN Q4HRS PRN PO PAIN Last administered on 11:30; Start 03/16/17 at 21:15 Citalopram Hydrobromide (CeleXA) 40 mg HS PO Last administered on 03/17/17 20: 13; Start 03/16/17 at 21:30 Ceftriaxone Sodium 1 gm/ Sodium Chloride 50 ml @ 100 mls/hr Q24H IV Last administered on 03/17/17 20:48; Start 03/17/17 at 21:00 Ceftriaxone Sodium 1 gm/ Sodium Chloride 50 ml @ 100 mls/hr ONCE ONCE IV Last administered on 03/16/17 23:51; Start 03/16/17 at 23:45; Stop 03/17/17 at 00:14; Status DC Metoclopramide HCl (Reglan) 10 mg 1X ONCE IV Last administered on 03/17/17 20 :08; Start 03/17/17 at 16:00; Stop 03/17/17 at 16:01; Status DC Ketorolac Tromethamine (Toradol) 10 mg 1X ONCE IV ; Start 03/17/17 at 15:45; Stop 03/17/17 at 15:46; Status Cancel Diphenhydramine HCl (Benadryl) 25 mg 1X ONCE IVP Last administered on 20:08; Start 03/17/17 at 16:00; Stop 03/17/17 at 16:01; Status DC Ketorolac Tromethamine (Toradol) 15 mg 1X ONCE IV Last administered on 20:08; Start 03/17/17 at 16:00; Stop 03/17/17 at 16:01; Status DC Morphine Sulfate 2 mg PRN Q2HR PRN IV SEVERE PAIN Last administered on 05:17; Start 03/17/17 at 20:15 Ondansetron HCl (Zofran) 4 mg PRN Q8HRS PRN IV NAUSEA/VOMITING; Start 03/17/17 at 20:30 Lorazepam (Ativan) 1 mg PRN Q6HRS PRN IV ANXIETY / AGITATION Last administered on 03/18/17 13:51; Start 03/18/17 at 13:45 Active Scripts Active Reported Oxycodone Hcl 10 Mg Tablet 10 Mg PO PRN Q4HRS PRN Oxycodone Hcl 5 Mg Tablet 5 Mg PO PRN Q4HRS PRN Colace (Docusate Sodium) 100 Mg Capsule 2 Cap PO PRN DAILY PRN Magnesium Oxide 400 Mg Tablet 2 Tab PO DAILY Xanax (Alprazolam) 0.5 Mg Tablet 1 Tab PO PRN Q4HRS PRN Trazodone Hcl 50 Mg Tablet 1 Tab PO PRN PRN Citalopram Hbr (Citalopram Hydrobromide) 40 Mg Tablet 1 Tab PO HS Vitals/I & O Vital Sign - Last 24 Hours 03/17/17 03/17/17 03/17/17 03/17/17 15:04 15:23 18:17 19:00 Temp 98.4 98.1 98.4 98.1 Pulse 68 72 Resp 18 17 B/P (MAP) 110/79 (89) 126/82 (97) Pulse Ox 98 98 98 96 O2 Delivery Room Air Room Air Room Air Room Air 03/17/17 03/17/17 03/17/17 03/18/17 19:40 20:45 23:00 00:32 Temp 98.4 98.4 Pulse 61 Resp 18 17 18 B/P (MAP) 112/68 (83) Pulse Ox 96 97 97 O2 Delivery Room Air Room Air Room Air Room Air 03/18/17 03/18/17 03/18/17 03/18/17 03:00 05:17 05:26 05:47 Temp 98.3 98.3 Pulse 66 Resp 17 18 18 16 B/P (MAP) 113/71 (85) Pulse Ox 98 98 98 98 O2 Delivery Room Air Room Air Room Air Room Air 03/18/17 03/18/17 03/18/17 03/18/17 06:30 07:25 08:00 11:21 Temp 98.0 97.7 98.0 97.7 Pulse 69 81 Resp 18 18 19 B/P (MAP) 127/86 (100) 116/72 (87) Pulse Ox 100 100 O2 Delivery Room Air Room Air Room Air 03/18/17 03/18/17 11:30 12:30 Pulse Ox 100 100 O2 Delivery Room Air Room Air Intake and Output 03/17/17 03/17/17 03/18/17 15:00 23:00 07:00 Intake Total 600 ml 1200 ml 450 ml Balance 600 ml 1200 ml 450 ml CASTLE,NIAL K III DO Mar 18, 2017 13:59
[2017-03-18] MEDS ORDERED: LORazepam 1 MG TABLET PO PRN (14:00)
[2017-03-18 15:09] VITALS: BP 124/77
--- NOTE | 2017-03-18 15:24 | PDOC2 ---
GI CONSULT Date Date/Time DATE: 03/18/17 TIME: 15:13 Providers Attending Physician Song Galindo III DO Referring Physician Consulting Physician Dr. Jackson History of Present Illness HPI 37 yo WF- with onset diarrhea 3 days ago- new without fever, n/v followed by severe lower abd pain- bilateral- new- does not recall having this type of pain before- but has complex history of surgeries [facility] put her at risk for chronic abd pain and bowel changes. 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 Normally has regular or mildly constipated bowel pattern History Past Medical History partial pancreatectomy chronic leg pain splenectomy prior pelvic mesh with small bowel injury Past Surgical History: Hysterectomy, Colon Resection, Other (splenectomy, pancreatectomy, bowel resection, hernia repair with mesh ) Review of Systems Gastrointestinal: Yes: diarrhea (acute on now resolved), abdominal pain (lower bilateral abd pain) Allergies Allergies Allergies Coded Allergies Type Severity Reaction Last Updated Verified methylprednisolone Allergy Intermediate Hives 03/17/17 Yes trimethoprim Adverse Reaction Intermediate 03/17/17 Yes sulfamethoxazole Adverse Reaction Mild 03/17/17 Yes Medications Medications Current Medications Ondansetron HCl (Zofran) 4 mg 1X ONCE IV Last administered on 03/16/17 16:02 ; Start 03/16/17 at 15:45; Stop 03/16/17 at 15:48; Status DC Hydromorphone HCl (Dilaudid) 0.5 mg PRN Q30MIN PRN IV moderate to seevere pain Last administered on 03/16/17 18:33; Start 03/16/17 at 15:45; Stop 03/16/17 at 18:33; Status DC Sodium Chloride 1,000 ml @ 1,000 mls/hr 1X ONCE IV Last administered on 16:02; Start 03/16/17 at 15:45; Stop 03/16/17 at 16:44; Status DC Iohexol (Omnipaque 300 Mg/ml) 75 ml 1X ONCE IV Last administered on 03/16/17 16:38; Start 03/16/17 at 16:30; Stop 03/16/17 at 16:31; Status DC Morphine Sulfate 2 mg PRN Q1HR PRN IV SEVERE PAIN Last administered on 15:23; Start 03/16/17 at 17:00; Stop 03/17/17 at 15:25; Status DC Ondansetron HCl (Zofran) 4 mg PRN Q8HRS PRN IV NAUSEA/VOMITING Last administered on 03/17/17 15:24; Start 03/16/17 at 17:45; Stop 03/17/17 at 17:44 ; Status DC Morphine Sulfate 2 mg PRN Q2HR PRN IV PAIN Last administered on 03/17/17 07:07 ; Start 03/16/17 at 17:45; Stop 03/17/17 at 15:09; Status DC Sodium Chloride 1,000 ml @ 125 mls/hr Q8H IV Last administered on 03/17/17 13 :09; Start 03/16/17 at 17:34; Stop 03/17/17 at 17:33; Status DC Ketorolac Tromethamine (Toradol) 15 mg PRN Q6HRS PRN IV MILD - MODERATE PAIN Last administered on 03/17/17 13:16; Start 03/16/17 at 21:15; Stop 03/21/17 at 21:14 Ibuprofen (Motrin) 400 mg PRN Q6HRS PRN PO INFLAMMATION; Start 03/16/17 at 21: 15 Alprazolam (Xanax) 0.5 mg PRN Q4HRS PRN PO ANXIETY / AGITATION Last administered on 03/18/17 14:38; Start 03/16/17 at 21:15 Docusate Sodium (Colace) 200 mg PRN DAILY PRN PO CONSTIPATION; Start 03/16/17 at 21:15 Magnesium Oxide (Magnesium Oxide) 800 mg DAILY PO Last administered on 08:29; Start 03/17/17 at 09:00 Oxycodone HCl (Roxicodone) 5 mg PRN Q4HRS PRN PO PAIN; Start 03/16/17 at 21:15 Trazodone HCl (Desyrel) 50 mg PRN QHS PRN PO INSOMNIA; Start 03/16/17 at 21:15 Citalopram Hydrobromide (CeleXA) 40 mg DAILY PO ; Start 03/17/17 at 09:00; Stop 03/17/17 at 09:00; Status DC Oxycodone HCl (Roxicodone) 10 mg PRN Q4HRS PRN PO PAIN Last administered on 11:30; Start 03/16/17 at 21:15 Citalopram Hydrobromide (CeleXA) 40 mg HS PO Last administered on 03/17/17 20: 13; Start 03/16/17 at 21:30 Ceftriaxone Sodium 1 gm/ Sodium Chloride 50 ml @ 100 mls/hr Q24H IV Last administered on 03/17/17 20:48; Start 03/17/17 at 21:00 Ceftriaxone Sodium 1 gm/ Sodium Chloride 50 ml @ 100 mls/hr ONCE ONCE IV Last administered on 03/16/17 23:51; Start 03/16/17 at 23:45; Stop 03/17/17 at 00:14; Status DC Metoclopramide HCl (Reglan) 10 mg 1X ONCE IV Last administered on 03/17/17 20 :08; Start 03/17/17 at 16:00; Stop 03/17/17 at 16:01; Status DC Ketorolac Tromethamine (Toradol) 10 mg 1X ONCE IV ; Start 03/17/17 at 15:45; Stop 03/17/17 at 15:46; Status Cancel Diphenhydramine HCl (Benadryl) 25 mg 1X ONCE IVP Last administered on 20:08; Start 03/17/17 at 16:00; Stop 03/17/17 at 16:01; Status DC Ketorolac Tromethamine (Toradol) 15 mg 1X ONCE IV Last administered on 20:08; Start 03/17/17 at 16:00; Stop 03/17/17 at 16:01; Status DC Morphine Sulfate 2 mg PRN Q2HR PRN IV SEVERE PAIN Last administered on 05:17; Start 03/17/17 at 20:15 Ondansetron HCl (Zofran) 4 mg PRN Q8HRS PRN IV NAUSEA/VOMITING; Start 03/17/17 at 20:30 Lorazepam (Ativan) 1 mg PRN Q6HRS PRN IV ANXIETY / AGITATION Last administered on 03/18/17 13:51; Start 03/18/17 at 13:45 Lorazepam (Ativan) 1 mg PRN Q6HRS PRN PO ANXIETY / AGITATION; Start 03/18/17 at 14:00 Active Scripts Active Reported Oxycodone Hcl 10 Mg Tablet 10 Mg PO PRN Q4HRS PRN Oxycodone Hcl 5 Mg Tablet 5 Mg PO PRN Q4HRS PRN Colace (Docusate Sodium) 100 Mg Capsule 2 Cap PO PRN DAILY PRN Magnesium Oxide 400 Mg Tablet 2 Tab PO DAILY Xanax (Alprazolam) 0.5 Mg Tablet 1 Tab PO PRN Q4HRS PRN Trazodone Hcl 50 Mg Tablet 1 Tab PO PRN PRN Citalopram Hbr (Citalopram Hydrobromide) 40 Mg Tablet 1 Tab PO HS Physical Exam Physical Exam alert chest -clear cor- RRR abd soft- very mild tenderness in lower abd slightly more on RLQ no mass or rebound extrem- no CCE neuro- non focal Imaging Imaging CT- small amount free fluid and cyst on R ovary- otherwise OK Assessment Assessment New dairrhea this week followed by lower abd pain- cramps- no fever or bleeding and no clear trigger for diarrhea- normally regular or mildly constipated and no clear history of symptoms of pancreatic insufficency after partial pancreatectomy last July Incidental finding of complex cyst on right ovary- not likely the trigger for symptoms this week but could be source for RLQ tenderness and is being addressed Problems: Plan Plan prn dicyclomine if chronic loose stools develop in further, consider stool fat testing in light of history but not likely contributing to present symptoms we will follow with you Thank you for allowing us to participate in the care of your patient. We will continue to follow the patient with you and provide an appropriate recommendation as it becomes available. BORA JACKSON MD Mar 18, 2017 15:24
[2017-03-18] MEDS ORDERED: DICYCLOMINE HCL 10 MG CAPSULE PO PRN (15:30)
[2017-03-18 19:00] VITALS: BP 134/92
[2017-03-18] MEDS: CITALOPRAM 20 MG TABLET. PO SCH (20:22)
[2017-03-18 23:00] VITALS: BP 105/70
[2017-03-19 07:12] VITALS: BP 125/86
--- NOTE | 2017-03-19 08:34 | PDOC ---
SURGICAL PROGRESS NOTE Subjective Pt with c/o mild pain RLQ, but feels better overall Vital Signs Vital Signs Date Time Temp Pulse Resp B/P (MAP) Pulse Ox O2 Delivery O2 Flow Rate FiO2 03/19/17 07:12 98.1 54 18 125/86 (99) 100 Room Air 98.1 I&O Intake and Output 03/19/17 07:00 Intake Total 1900 ml Balance 1900 ml Intake Oral 1900 ml # Voids 6 General: Alert, Oriented X3, Cooperative, No acute distress Abdomen: Soft, Other (mild TTP RLQ) Problem List Problems Medical Problems: (1) Abdominal pain Status: Acute Assessment/Plan agree with physician gynecologist plans for surgery today d/w pt Problems: MICHELINE CASAS MD Mar 19, 2017 08:34
[2017-03-19] MEDS ORDERED: LIDOCAINE 2% PF Vial for OR 5 ML VIAL. ONE (08:45)
[2017-03-19] MEDS ORDERED: DEXAMETHASONE SOD PHOS 20 MG/5 ML VIAL. ONE (08:45)
[2017-03-19] MEDS ORDERED: DESFLURANE 61 TO 120 MINUTES IH ONE (08:45)
[2017-03-19] MEDS ORDERED: PROPOFOL 20 ML IV ONE (08:45)
[2017-03-19] MEDS ORDERED: fentaNYL PF VIAL 100 MCG/2 ML VIAL ONE ×2 (08:45→10:48)
[2017-03-19] MEDS ORDERED: ONDANSETRON PF 4 MG/2 ML VIAL. ONE (08:45)
[2017-03-19] MEDS ORDERED: MIDAZOLAM HCL/PF 2 MG/2 ML VIAL. ONE (08:46)
[2017-03-19] MEDS: MAGNESIUM OXIDE 400 MG TABLET PO SCH (09:00)
[2017-03-19] MEDS ORDERED: BUPIVACAINE-EPI 0.25%-1:200000 MPF 30 ML VIAL. INJ ONE (10:00)
[2017-03-19] MEDS ORDERED: BUPIVAC MPF-EPI 0.5%-1:200000 30 ML VIAL. INJ ONE (10:15)
[2017-03-19] MEDS ORDERED: KETOROLAC 30 MG/ML INJ FOR OR. INJ ONE (10:26)
--- NOTE | 2017-03-19 10:50 | PDOC ---
BRIEF OPERATIVE NOTE Pre-Op Diagnosis ROV Cyst Post-Op Diagnosis Same Procedure Performed [facility] Surgeon Dr. Guallpa Anesthesia Type: General Blood Loss 5 ml Specimens Obtained right fallopian tube and right ovary Findings bowel adhesions to upper abd wall, vaginal colpopexy mesh adhesed to Right fallopian tube, pelvic sidewall adhesions; nml Left fallopian tube and ovary Complications none ALISON GUALLPA Jr, MD Mar 19, 2017 10:50
[2017-03-19] MEDS: fentaNYL PF VIAL 100 MCG/2 ML VIAL IV PRN ×2 (11:00→11:20)
[2017-03-19] MEDS: MORPHINE SULFATE 2 MG/ML DISP.SYRIN. IV PRN ×7 (11:05→16:41)
[2017-03-19] MEDS ORDERED: MORPHINE SULFATE 4 MG/ML DISP.SYRIN. ONE (11:15)
[2017-03-19] MEDS ORDERED: IV RINGERS,LACTATED 1000ML 1,000 ML IV SCH (11:16)
[2017-03-19] MEDS ORDERED: LIDOCAINE 1% 1 ML SYRINGE. ID PRN (11:30)
[2017-03-19] MEDS ORDERED: PROCHLORPERAZINE 10 MG/2 ML VIAL. IV PRN (11:30)
[2017-03-19] MEDS ORDERED: fentaNYL PF VIAL 100 MCG/2 ML VIAL IV PRN ×2 (11:30)
[2017-03-19] MEDS ORDERED: HYDROmorphone 2 MG/ML VIAL ONE (11:37)
[2017-03-19] MEDS: HYDROmorphone 2 MG/ML VIAL IV PRN ×2 (11:39→11:53)
[2017-03-19] MEDS: oxyCODONE IR 5 MG TABLET PO PRN (12:28)
--- NOTE | 2017-03-19 12:47 | PDOC ---
G I PROGRESS NOTE Reason for Follow-up ABd pain Subjective S/p mesh extraction/feeling better Physical Exam Lungs clear CV S1 S2 ABD incision intact, decreased BS Review of Relevant I have reviewed the following items ankit (where applicable) has been applied. Medications Current Medications Ondansetron HCl (Zofran) 4 mg 1X ONCE IV Last administered on 03/16/17 16:02 ; Start 03/16/17 at 15:45; Stop 03/16/17 at 15:48; Status DC Hydromorphone HCl (Dilaudid) 0.5 mg PRN Q30MIN PRN IV moderate to seevere pain Last administered on 03/16/17 18:33; Start 03/16/17 at 15:45; Stop 03/16/17 at 18:33; Status DC Sodium Chloride 1,000 ml @ 1,000 mls/hr 1X ONCE IV Last administered on 16:02; Start 03/16/17 at 15:45; Stop 03/16/17 at 16:44; Status DC Iohexol (Omnipaque 300 Mg/ml) 75 ml 1X ONCE IV Last administered on 03/16/17 16:38; Start 03/16/17 at 16:30; Stop 03/16/17 at 16:31; Status DC Morphine Sulfate 2 mg PRN Q1HR PRN IV SEVERE PAIN Last administered on 15:23; Start 03/16/17 at 17:00; Stop 03/17/17 at 15:25; Status DC Ondansetron HCl (Zofran) 4 mg PRN Q8HRS PRN IV NAUSEA/VOMITING Last administered on 03/17/17 15:24; Start 03/16/17 at 17:45; Stop 03/17/17 at 17:44 ; Status DC Morphine Sulfate 2 mg PRN Q2HR PRN IV PAIN Last administered on 03/17/17 07:07 ; Start 03/16/17 at 17:45; Stop 03/17/17 at 15:09; Status DC Sodium Chloride 1,000 ml @ 125 mls/hr Q8H IV Last administered on 03/17/17 13 :09; Start 03/16/17 at 17:34; Stop 03/17/17 at 17:33; Status DC Ketorolac Tromethamine (Toradol) 15 mg PRN Q6HRS PRN IV MILD - MODERATE PAIN Last administered on 03/17/17 13:16; Start 03/16/17 at 21:15; Stop 03/21/17 at 21:14 Ibuprofen (Motrin) 400 mg PRN Q6HRS PRN PO INFLAMMATION; Start 03/16/17 at 21: 15 Alprazolam (Xanax) 0.5 mg PRN Q4HRS PRN PO ANXIETY / AGITATION Last administered on 03/18/17 14:38; Start 03/16/17 at 21:15 Docusate Sodium (Colace) 200 mg PRN DAILY PRN PO CONSTIPATION; Start 03/16/17 at 21:15 Magnesium Oxide (Magnesium Oxide) 800 mg DAILY PO Last administered on 08:29; Start 03/17/17 at 09:00 Oxycodone HCl (Roxicodone) 5 mg PRN Q4HRS PRN PO PAIN; Start 03/16/17 at 21:15 Trazodone HCl (Desyrel) 50 mg PRN QHS PRN PO INSOMNIA Last administered on 03/18 21:41; Start 03/16/17 at 21:15 Citalopram Hydrobromide (CeleXA) 40 mg DAILY PO ; Start 03/17/17 at 09:00; Stop 03/17/17 at 09:00; Status DC Oxycodone HCl (Roxicodone) 10 mg PRN Q4HRS PRN PO PAIN Last administered on 12:28; Start 03/16/17 at 21:15 Citalopram Hydrobromide (CeleXA) 40 mg HS PO Last administered on 03/18/17 20: 22; Start 03/16/17 at 21:30 Ceftriaxone Sodium 1 gm/ Sodium Chloride 50 ml @ 100 mls/hr Q24H IV Last administered on 03/18/17 20:21; Start 03/17/17 at 21:00 Ceftriaxone Sodium 1 gm/ Sodium Chloride 50 ml @ 100 mls/hr ONCE ONCE IV Last administered on 03/16/17 23:51; Start 03/16/17 at 23:45; Stop 03/17/17 at 00:14; Status DC Metoclopramide HCl (Reglan) 10 mg 1X ONCE IV Last administered on 03/17/17 20 :08; Start 03/17/17 at 16:00; Stop 03/17/17 at 16:01; Status DC Ketorolac Tromethamine (Toradol) 10 mg 1X ONCE IV ; Start 03/17/17 at 15:45; Stop 03/17/17 at 15:46; Status Cancel Diphenhydramine HCl (Benadryl) 25 mg 1X ONCE IVP Last administered on 20:08; Start 03/17/17 at 16:00; Stop 03/17/17 at 16:01; Status DC Ketorolac Tromethamine (Toradol) 15 mg 1X ONCE IV Last administered on 20:08; Start 03/17/17 at 16:00; Stop 03/17/17 at 16:01; Status DC Morphine Sulfate 2 mg PRN Q2HR PRN IV SEVERE PAIN Last administered on 12:28; Start 03/17/17 at 20:15 Ondansetron HCl (Zofran) 4 mg PRN Q8HRS PRN IV NAUSEA/VOMITING Last administered on 03/19/17 12:28; Start 03/17/17 at 20:30 Lorazepam (Ativan) 1 mg PRN Q6HRS PRN IV ANXIETY / AGITATION Last administered on 03/19/17 07:56; Start 03/18/17 at 13:45 Lorazepam (Ativan) 1 mg PRN Q6HRS PRN PO ANXIETY / AGITATION; Start 03/18/17 at 14:00 Dicyclomine HCl (Bentyl) 10 mg PRN Q6HRS PRN PO ABD PAIN; Start 03/18/17 at 15: 30 Dexamethasone Sodium Phosphate (Decadron) 20 mg STK-MED ONCE .ROUTE ; Start at 08:45; Stop 03/19/17 at 08:46; Status DC Ondansetron HCl (Zofran) 4 mg STK-MED ONCE .ROUTE ; Start 03/19/17 at 08:45; Stop 03/19/17 at 08:46; Status DC Propofol 20 ml @ As Directed STK-MED ONCE IV ; Start 03/19/17 at 08:45; Stop at 08:46; Status DC Lidocaine HCl (Lidocaine Pf 2% Vial) 5 ml STK-MED ONCE .ROUTE ; Start 03/19/17 at 08:45; Stop 03/19/17 at 08:46; Status DC Desflurane (Suprane) 60 ml STK-MED ONCE IH ; Start 03/19/17 at 08:45; Stop 03/19 at 08:46; Status DC Fentanyl Citrate (Fentanyl 2ml Vial) 100 mcg STK-MED ONCE .ROUTE ; Start at 08:45; Stop 03/19/17 at 08:46; Status DC Midazolam HCl (Versed) 2 mg STK-MED ONCE .ROUTE ; Start 03/19/17 at 08:46; Stop 03/19/17 at 08:47; Status DC Bupivacaine HCl/ Epinephrine Bitart (Sensorcaine-Epi 0.25%-1:[id number] Mpf) 30 ml 1X ONCE INJ ; Start 03/19/17 at 10:00; Stop 03/19/17 at 10:01; Status DC Bupivacaine HCl/ Epinephrine Bitart (Sensorcain-Mpf Epi 0.5%-1:[id number]) 30 ml 1X ONCE INJ Last administered on 03/19/17t 10:10; Start 03/19/17 at 10:15; Stop 03/19/17 at 10:16; Status DC Ketorolac Tromethamine (Toradol For Or Only) 30 mg STK-MED ONCE INJ ; Start at 10:26; Stop 03/19/17 at 10:27; Status DC Fentanyl Citrate (Fentanyl 2ml Vial) 100 mcg STK-MED ONCE .ROUTE ; Start at 10:48; Stop 03/19/17 at 10:49; Status DC Fentanyl Citrate (Fentanyl 2ml Vial) 50 mcg PACU PRN PRN IV pain Last administered on 03/19/17t 11:20; Start 03/19/17 at 11:15 Morphine Sulfate 4 mg STK-MED ONCE .ROUTE ; Start 03/19/17 at 11:15; Stop at 11:16; Status DC Fentanyl Citrate (Fentanyl 2ml Vial) 25 mcg PRN Q5MIN PRN IV MILD PAIN; Start 03/19/17 at 11:30; Stop 03/20/17 at 11:29 Fentanyl Citrate (Fentanyl 2ml Vial) 50 mcg PRN Q5MIN PRN IV MODERATE PAIN; Start 03/19/17 at 11:30; Stop 03/20/17 at 11:29 Morphine Sulfate 1 mg PRN Q10MIN PRN IV SEVERE PAIN Last administered on 11:53; Start 03/19/17 at 11:30; Stop 03/20/17 at 11:29 Ringer's Solution 1,000 ml @ 30 mls/hr Q24H IV Last administered on 03/19/17 09:30; Start 03/19/17 at 11:16; Stop 03/19/17 at 23:15 Lidocaine HCl 2 ml PRN 1X PRN ID PRIOR TO IV START; Start 03/19/17 at 11:30; Stop 03/20/17 at 11:29 Hydromorphone HCl (Dilaudid) 0.5 mg PRN Q10MIN PRN IV SEV PAIN, Second choice Last administered on 03/19/17 11:53; Start 03/19/17 at 11:30; Stop 03/20/17 at 11:29 Prochlorperazine Edisylate (Compazine) 5 mg PACU PRN PRN IV NAUSEA, MRX1; Start 03/19/17 at 11:30; Stop 03/20/17 at 11:29 Hydromorphone HCl (Dilaudid) 2 mg STK-MED ONCE .ROUTE ; Start 03/19/17 at 11:37 ; Stop 03/19/17 at 11:38; Status DC Active Scripts Active Reported Oxycodone Hcl 10 Mg Tablet 10 Mg PO PRN Q4HRS PRN Oxycodone Hcl 5 Mg Tablet 5 Mg PO PRN Q4HRS PRN Colace (Docusate Sodium) 100 Mg Capsule 2 Cap PO PRN DAILY PRN Magnesium Oxide 400 Mg Tablet 2 Tab PO DAILY Xanax (Alprazolam) 0.5 Mg Tablet 1 Tab PO PRN Q4HRS PRN Trazodone Hcl 50 Mg Tablet 1 Tab PO PRN PRN Citalopram Hbr (Citalopram Hydrobromide) 40 Mg Tablet 1 Tab PO HS Vitals/I & O Vital Sign - Last 24 Hours 03/18/17 03/18/17 03/18/17 03/18/17 15:09 19:00 19:50 23:00 Temp 97.6 98.3 97.7 97.6 98.3 97.7 Pulse 86 72 74 Resp 19 19 19 B/P (MAP) 124/77 (93) 134/92 (106) 105/70 (82) Pulse Ox 98 98 97 O2 Delivery Room Air Room Air Room Air Room Air 03/19/17 03/19/17 03/19/17 03/19/17 07:12 08:00 09:30 10:48 Temp 98.1 98.2 98.1 98.2 Pulse 54 64 Resp 18 20 B/P (MAP) 125/86 (99) 126/82 Pulse Ox 100 99 O2 Delivery Room Air Room Air Room Air Room Air 03/19/17 03/19/17 03/19/17 03/19/17 10:48 11:00 11:03 11:05 Temp 97.1 97.1 97.1 97.1 Pulse 83 83 Resp 17 17 15 B/P (MAP) 127/69 100/74 Pulse Ox 100 100 98 98 O2 Delivery Room Air Room Air Room Air Room Air Simple Mask 03/19/17 03/19/17 03/19/17 03/19/17 11:15 11:18 11:20 11:33 Temp 97.1 98.2 97.1 98.2 Pulse 75 64 Resp 15 15 12 12 B/P (MAP) 122/69 129/74 Pulse Ox 98 99 98 98 O2 Delivery Room Air Room Air Room Air Room Air 03/19/17 03/19/17 03/19/17 03/19/17 11:39 11:39 11:48 11:53 Temp 98.2 98.2 Pulse 76 Resp 12 12 15 12 B/P (MAP) 123/73 Pulse Ox 98 98 96 96 O2 Delivery Room Air Room Air Room Air Room Air 03/19/17 03/19/17 03/19/17 11:53 12:28 12:28 Resp 12 Pulse Ox 96 O2 Delivery Room Air Room Air Room Air Intake and Output 03/18/17 03/18/17 03/19/17 15:00 23:00 07:00 Intake Total 420 ml 980 ml 500 ml Balance 420 ml 980 ml 500 ml Problem List Problems Medical Problems: (1) Abdominal pain Status: Acute Assessment ABD pain- s/p mesh extraction with adhesions, advance diet and activity as post- op ileus resolves YESI CHRISTINE MD Mar 19, 2017 12:47
--- NOTE | 2017-03-19 14:27 | PDOC3 ---
Discharge Summary [facility] Date of Admission: Mar 16, 2017 Discharge Date: Mar 19, 2017 Admitting Diagnosis Anxiety right ovarian cyst abd pain with right ovarian cyst and some abd adhension h/o : Hysterectomy Splenectomy Bowel Resection Pancreatectomy Problems: Final Diagnosis CONSULTS sx ob gi Brief Hospital Course Ms. Mcdonald is a 37 old F, with multiple abd sx, came for abd pain with n/v. CTwas ok. US showed right ovarian cyst. pt got lap removal of right ovarian cyst and some adhesion lysis by ob today. dc home dc time 35min General: Alert, Oriented X3, Cooperative, No acute distress Heart: Regular rate, Normal S1, Normal S2, No murmurs Lungs: Clear, Other Abdomen: Normal bowel sounds, Soft, Other (Pelvic: deferred.) Extremities: No clubbing, No cyanosis, No edema Skin: No rashes, No breakdown Patient History: Unknown Problems: Disposition home CONDITION AT DISCHARGE: Improved Diet regular Scheduled Citalopram Hydrobromide (Citalopram Hbr), 1 TAB PO HS, (Reported) Magnesium Oxide (Magnesium Oxide), 2 TAB PO DAILY, (Reported) Scheduled PRN Alprazolam (Xanax), 1 TAB PO PRN Q4HRS PRN for ANXIETY / AGITATION, (Reported) Docusate Sodium (Colace), 2 CAP PO PRN DAILY PRN for CONSTIPATION, (Reported) Oxycodone Hcl (Oxycodone Hcl), 5 MG PO PRN Q4HRS PRN for PAIN, (Reported) Oxycodone Hcl (Oxycodone Hcl), 10 MG PO PRN Q4HRS PRN for PAIN, (Reported) Trazodone Hcl (Trazodone Hcl), 1 TAB PO PRN PRN for INSOMNIA, (Reported) Follow Up ob next week FALLON KUMAR MD Mar 19, 2017 14:27
[2017-03-19 14:52] VITALS: BP 100/61
--- NOTE | 2017-03-19 22:34 | OP ---
DATE OF SURGERY: PREOPERATIVE DIAGNOSES: Right ovarian complex cyst. POSTOPERATIVE DIAGNOSES: Right ovarian complex cyst. PROCEDURE: Laparoscopic RSO. SURGEON: Keegan Lund MD ANESTHESIA: GETA. ESTIMATED BLOOD LOSS: 5 mL. COMPLICATIONS: None. FINDINGS: Bowel adhesions to the upper abdominal wall, vaginal colpopexy mesh adhesed to the right fallopian tube, pelvic sidewall adhesions, normal left fallopian tube and ovary. SUMMARY: A 37-year-old female with abdominal pain, presented to Emergency Department, the patient was found to have complex right ovarian cyst. She continued to have the pain in the hospital. This is a persistent cyst per previous sonogram records. She was counseled on laparoscopic management of the right ovarian cysts and possibility of laparoscopic RSO. The patient did not want to have interval surgery and desired to have surgery while she was currently hospitalized. The patient was counseled on risks, benefits, and expectations of the procedure and desired to proceed. DESCRIPTION OF PROCEDURE: The patient was taken to surgery suite and placed in dorsal lithotomy position. She was prepped with Betadine solution for vaginal prep and ChloraPrep for abdominal prep. After adequate anesthesia, moist sponge stick was placed vaginally. Attention was then placed on abdomen. Small transverse skin incision was made in the left subcostal margin about 2 fingerbreadths below the left subcostal margin. Veress needle was then placed. The abdomen was then insufflated up to 1-1/2 liters CO2 gas. The Veress needle was then removed, 5 mm trocar was placed. Scope was positioned. Other abdominal wall adhesions to the bowel and the upper abdomen, there were adhesions of the vaginal colpopexy mesh to the right fallopian tube. An incision was made at the level of the umbilicus with the scalpel, and a 5 mm trocar was placed. Another 5 mm trocar was placed in the left lower quadrant. With aid of graspers, the right ovary was further evaluated, and found to have complex cystic. The left fallopian tube and ovary was normal. With the aid of EnSeal device, the adhesions to the vaginal colpopexy mesh were removed and the right infundibulopelvic ligament was coagulated and dissected and was then placed in the posterior cul-de-sac. The pedicle was hemostatic. The left lower quadrant 5-mm port was replaced with 10 mm port. An Endobag was positioned and the right fallopian tube and ovary was then removed. Suction irrigation was performed to verify good hemostasis. The trocars were then removed under direct visualization. The abdomen was allowed to deflate as much as possible along with mechanical manipulation. The 10-mm port site was closed at the fascial layer using 2-0 Vicryl suture in a [id number] manner. The three skin incisions were reapproximated using 4-0 Vicryl suture in subcuticular manner, 0.5% Marcaine with epinephrine was injected at each incision site. The vaginal sponge stick was removed. The patient tolerated the procedure well and was taken to recovery room in stable condition. Sponge and needle count correct x 3. KEEGAN LUND MD DR: [email or web address]/[email or web address] JOB#: [id number] / [id number]
--- NOTE | 2017-03-20 15:58 | PATHOLOGY ---
PATHOLOGY REPORT * * * * * * * * FINAL DIAGNOSIS: Fallopian tube and ovary, laparoscopic right salpingo-oophorectomy: - Follicular cyst showing regressive changes and organizing hemorrhage. - Hemorrhagic partially-luteinized follicle cyst. - Small cystic follicle. - Congestion of fallopian tube. COMMENT: There is no evidence of malignancy. (JPM:mml; 03/20/2017) REPORT ELECTRONICALLY SIGNED BY: Griffin Sutton M.D. DATE/TIME: 03/20/2017 15:57 * * * * * * * * GROSS PATHOLOGY: The specimen is received in formalin, labeled, "Dar Mcdonald-right tube and ovary". Received is an intact, slightly enlarged ovary with attached fallopian tube having a total weight of 20 grams. The ovary measures 3.5 x 3.2 x 1.5 cm. The external surface is partially smooth, partially cerebriform and pale yellow-pink. Sectioning reveals multiple hemorrhagic and clear fluid-filled cysts ranging in size from 0.1 cm to 2.5 cm. No evidence of papillary excrescences are identified. The remainder of the cut surface displays a variegated white-white pale yellow appearance with no additional gross abnormalities. The fallopian tube measures 5.5 cm in length and up to 0.5 cm in diameter. The distal portion is fimbriated. The serosal surface displays a wrinkled, dark pink appearance. Sectioning reveals a patent lumen. [employer] Processing Supervisor sections of ovary and fallopian tube are submitted in cassettes A1 and A2. (SNA:vipul; 03/19/2017) INITIAL CPT CODE(S): A; 65475 Professional services performed by Keaton Row at [address] [address] Technical services performed by [facility]aton Row at [address] [place] [address], [facility] [address] [address]. SPECIMEN(S) RECEIVED: A.Right tube and ovary CLINICAL HISTORY: Right ovarian cyst PATIENT: DAR MCDONALD /AGE: 6 1980 (Age: 37) PATIENT #: [id number] ALT CASE #: SPECIMEN COLLECTION DATE: 03/19/2017 SPECIMEN RECEIVED DATE: 03/19/2017 [facility] - [id number] [place] [address] - PHONE: [phone] * * * END OF REPORT * * *
== END 2017-03-19 17:00 | disposition home or self-care (01) ==
LOC: ER 15:19 → 6 SOUTH 17:33
PROVIDERS: ADMIT Internal Medicine; ATTEND Internal Medicine
DX: N83.201 Unspecified ovarian cyst, right side (principal); F41.9 Anxiety disorder, unspecified; F32.9 Major depressive disorder, single episode, unspecified; K66.0 Peritoneal adhesions (postprocedural) (postinfection); G89.29 Other chronic pain; D72.829 Elevated white blood cell count, unspecified; K91.89 Other postprocedural complications and disorders of digestive system; N89.5 Stricture and atresia of vagina; Z87.891 Personal history of nicotine dependence; Z90.49 Acquired absence of other specified parts of digestive tract; Z90.710 Acquired absence of both cervix and uterus; Z90.81 Acquired absence of spleen; Z82.49 Family history of ischemic heart disease and other diseases of the circulatory system
CPT/HCPCS: 36415; 58661; 74177; 76830; 76856; 80048; 80076; 83690; 85027; 88305; 96365; 96366; 96375; 96376; 99285; A4215; C1782; G0378; J0696; J1170; J1200; J1885; J2001; J2060; J2250; J2270; J2405; J2704; J2765; J3010; J3490; J7030; J7120; Q9967; G0379; J1100

== ENCOUNTER 2017-03-20 18:02 | Emergency (ER) | payer OTHER ==
[~2017-03-20] VITALS: Ht 167.6 cm; Wt 64.4 kg
[~2017-03-20 18:02] MED LIST changes: +OXYC10TA PO; +OXYC5TAB PO
[2017-03-20 18:05] VITALS: BP 147/93
--- NOTE | 2017-03-20 18:18 | PHYS DOC ---
Past Medical History Past Medical History: Anxiety, Constipation, Other Additional Past Medical Histor: small bowel obstruction Past Surgical History: Hysterectomy, Splenectomy, Other Additional Past Surgical Histo: BOWEL RESECTION, transvaginal sling, PANCREATECTOMY Alcohol Use: None Drug Use: None Adult General Chief Complaint Chief Complaint: PAIN CONTROL HPI HPI Patient is a 37 year old female with a history of anxiety, asthma, who presents today with postop pain since yesterday. Patient had right salpingo- oophorectomy done by Dr. Lund yesterday. She was discharged with oxycodone. He states it's not effective for her pain today. She is requesting pain relief. Review of Systems Review of Systems Constitutional: Denies fever or chills [] Eyes: Denies change in visual acuity, redness, or eye pain [] HENT: Denies nasal congestion or sore throat [] Respiratory: Denies cough or shortness of breath [] Cardiovascular: No additional information not addressed in HPI [] GI: abdominal pain, : Denies dysuria or hematuria [] Musculoskeletal: Denies back pain or joint pain [] Integument: Denies rash or skin lesions [] Neurologic: Denies headache, focal weakness or sensory changes [] Endocrine: Denies polyuria or polydipsia [] Current Medications Current Medications Current Medications Medications (Trade) Dose Ordered Sig/Joey Start Time Stop Time Status Last Admin Dose Admin Hydromorphone HCl (Dilaudid) 2 mg 1X ONCE 03/20/17 18:30 03/20/17 18:31 Allergies Allergies Allergies Coded Allergies Type Severity Reaction Last Updated Verified methylprednisolone Allergy Intermediate Hives 03/19/17 Yes trimethoprim Adverse Reaction Intermediate 03/19/17 Yes sulfamethoxazole Adverse Reaction Mild 03/19/17 Yes Physical Exam Physical Exam Constitutional: Well developed, well nourished, no acute distress, non-toxic appearance. [] HENT: Normocephalic, atraumatic, bilateral external ears normal, oropharynx moist, no oral exudates, nose normal. [] Eyes: PERRLA, EOMI, conjunctiva normal, no discharge. [] Neck: Normal range of motion, no tenderness, supple, no stridor. [] Cardiovascular:Heart rate regular rhythm, no murmur [] Lungs & Thorax: Bilateral breath sounds clear to auscultation [] Abdomen: Bowel sounds normal, soft, incisions noted on the left abdomen as well as umbilicus area consistent with laparoscopy procedure, incisional tenderness on exam, no masses, no pulsatile masses. [] Skin: Warm, dry, no erythema, no rash. [] Back: No tenderness, no CVA tenderness. [] Extremities: No tenderness, no cyanosis, no clubbing, ROM intact, no edema. [] Neurologic: Alert and oriented X 3, normal motor function, normal sensory function, no focal deficits noted. [] Psychologic: Affect normal, judgement normal, mood normal. [] Current Patient Data Vital Signs Vital Signs Date Time Temp Pulse Resp B/P (MAP) Pulse Ox O2 Delivery O2 Flow Rate FiO2 03/20/17 18:05 97.7 77 16 100 Room Air 97.7 EKG EKG [] Radiology/Procedures Radiology/Procedures [] Course & Med Decision Making Course & Med Decision Making Pertinent Labs and Imaging studies reviewed. (See chart for details) Patient is in the ED with complaint of postop pain after having a right salpingo -oophorectomy done yesterday. She was given Dilaudid 2 mg and discharge. She is to follow-up with her doctors as soon as possible. Dragon Disclaimer Dragon Disclaimer This electronic medical record was generated, in whole or in part, using a voice recognition dictation system. Departure Departure Impression: Primary Impression: Post-op pain Disposition: 01 HOME, SELF-CARE Condition: STABLE Referrals: GO MEJIAS MD (PCP) follow up with your doctor as soon as you can Patient Instructions: Abdominal Pain Additional Instructions: You were seen for right-sided abdominal postop pain. We did give you pain medicine in the emergency room. Do not drive or operate machinery on the pain medicine. Follow-up with your doctors as soon as you can. ASHANTI ROSS APRN Mar 20, 2017 18:17
[2017-03-20] MEDS ORDERED: HYDROmorphone 2 MG/ML VIAL IM ONE (18:30)
== END 2017-03-20 18:30 | disposition home or self-care (01) ==
LOC: ER 18:02
DX: G89.18 Other acute postprocedural pain (principal); Z90.710 Acquired absence of both cervix and uterus; Z90.81 Acquired absence of spleen; Z98.890 Other specified postprocedural states; Z88.8 Allergy status to other drugs, medicaments and biological substances; Z88.2 Allergy status to sulfonamides
CPT/HCPCS: 96372; 99283; J1170

== ENCOUNTER 2017-03-21 13:40 | Emergency (ER) | payer OTHER ==
[~2017-03-21] VITALS: Ht 167.6 cm; Wt 64.4 kg
[2017-03-21 14:05] LABS: BASO # 0.1 x10^3/uL (0.0-0.2); BASO % 1 % (0-3); EOS % 2 % (0-3); HEMOGLOBIN 13.3 g/dL (12.0-15.5); LYMPH # 2.9 x10^3/uL (1.0-4.8); LYMPH % 36 % (24-48); MEAN CORPUSCULAR HEMOGLOBIN 29 pg (25-35); MEAN CORPUSCULAR HGB CONC 33 g/dL (31-37); MEAN CORPUSCULAR VOLUME 88 fL (79-100); MONO % 7 % (0-9); NEUT % 54 % (31-73); PLATELET COUNT 251 x10^3/uL (140-400); RED BLOOD COUNT 4.66 x10^6/uL (3.50-5.40); RED CELL DISTRIBUTION WIDTH 14.4 % (11.5-14.5); WHITE BLOOD COUNT 8.3 x10^3/uL (4.0-11.0)
[2017-03-21 14:17] LABS: CALCIUM 8.8 mg/dL (8.5-10.1); CREATININE 0.8 mg/dL (0.6-1.0); GFR 81.6; POTASSIUM 3.9 mmol/L (3.5-5.1)
[2017-03-21 14:22] LABS: ALBUMIN 3.5 g/dL (3.4-5.0); ALBUMIN/GLOBULIN RATIO 1.1 (1.0-1.7); MAGNESIUM 1.9 mg/dL (1.8-2.4); TOTAL BILIRUBIN 0.2 mg/dL (0.2-1.0); TOTAL PROTEIN 6.8 g/dL (6.4-8.2)
[2017-03-21] MEDS ORDERED: BISACODYL 10 MG SUPP.RECT. PR ONE (14:30)
[2017-03-21] MEDS ORDERED: ONDANSETRON PF 4 MG/2 ML VIAL. IV ONE (14:30)
[2017-03-21] MEDS ORDERED: IOHEXOL 300 MG/ML 75 ML VIAL IV ONE (14:30)
[2017-03-21] MEDS ORDERED: IV NORMAL SALINE 1000ML BAG 1,000 ML IV ONE (14:30)
[2017-03-21] MEDS ORDERED: CONTRAST GIVEN MC PRN (14:30)
[2017-03-21] MEDS ORDERED: MORPHINE SULFATE 10 MG/ML VIAL. IV ONE (14:30)
[2017-03-21 14:38] LABS: BILIRUBIN,URINE NEGATIVE (NEG); GLUCOSE,URINE NEGATIVE (NEG); NITRITE,URINE NEGATIVE (NEG); PH,URINE 7.5; PROTEIN,URINE NEGATIVE (NEG-TRACE); UROBILINOGEN,URINE 0.2 mg/dL (0.2 mg/dL)
[2017-03-21 14:56] LABS: BACTERIA,URINE 0 /HPF (0-FEW); RBC,URINE 0 /HPF (0-2); SQUAMOUS EPITHELIAL CELL,UR MOD /LPF; WBC,URINE OCC /HPF (0-4)
--- NOTE | 2017-03-21 15:25 | RAD ---
CT abdomen and pelvis with contrast 03/21/2017 Clinical indication: Postoperative bladder sling and right ovary removed. Left-sided pain today. Comparison: CT abdomen and pelvis 03/16/2017, pelvic ultrasound 03/18/2017. Technique: Multiple CT axial images were obtained of the abdomen and pelvis following uneventful intravenous administration of 75 mL Omnipaque 300. PQRS Compliance Statement: One or more of the following individualized dose reduction techniques were utilized for this examination: 1. Automated exposure control 2. Adjustment of the mA and/or kV according to patient size 3. Use of iterative reconstruction technique Findings: Abdomen and pelvis: Heart size is within normal limits and visualized lung bases are clear. Liver, adrenal glands unremarkable. Spleen is absent. Prior distal right greater tech to me. No intra or extrahepatic biliary ductal dilatation. Both kidneys present and within normal limits. Abdominal aorta is normal in caliber. Major portal and visualized upper superior mesenteric veins are widely patent. Prior distal small bowel resection and anastomosis. There is a 15 mm oval high density structure which is likely intraluminal in a distal small bowel loop. No bowel obstruction. There is trace pelvic free fluid which may be physiologic. No retroperitoneal mesenteric lymphadenopathy. Mildly distended and unopacified urinary bladder within normal limits. No iliac or inguinal lymphadenopathy. No pneumoperitoneum. There are no destructive osseous lesions. Ill-defined anterior midline subcutaneous stranding likely from prior laparotomy. There is deep left lower quadrant subcutaneous edema with punctate foci of gas extending into the left lower quadrant anterior abdominal wall. There is a tiny fat-containing incisional hernia with a neck measuring 10 mm. Impression: 1. Status post recent right oophorectomy with postsurgical changes of the left lower quadrant anterior abdomen including mild subcutaneous stranding, punctate foci of gas, and tiny incisional fat-containing hernia with no associated loculated fluid collection to suggest abscess. 2. No bowel obstruction or intra-abdominal evidence for abscess.
[2017-03-21] MEDS ORDERED: fentaNYL PF VIAL 100 MCG/2 ML VIAL IV ONE (15:30)
--- NOTE | 2017-03-21 15:40 | PHYS DOC ---
Past Medical History Past Medical History: Anxiety, Constipation, Other Additional Past Medical Histor: small bowel obstruction Past Surgical History: Hysterectomy, Oophorectomy, Splenectomy, Other Additional Past Surgical Histo: BOWEL RESECTION, transvaginal sling, PANCREATECTOMY, R OVARY/FALLOPIAN TUBE Alcohol Use: None Drug Use: None Adult General Chief Complaint Chief Complaint: ABDOMINAL PAIN HPI HPI Patient is a 37 year old female presenting to the emergency department for evaluation of severe diffuse left-sided abdominal pain that started earlier today and has persisted. She had surgery 2 days ago including a right salpingo- oophorectomy. She says the right-sided does not hurt at all and just the left side and the pain is much constant. Decreased passing of gas and has not had a bowel movement since surgery. She denies any nausea or vomiting fevers chills dysuria hematuria vaginal bleeding or vaginal discharge. Patient appears to be in pain but she is nontoxic-appearing. Review of Systems Review of Systems Constitutional: Denies fever or chills [] GI: + abdominal pain. No nausea, vomiting, bloody stools or diarrhea [] : Denies dysuria or hematuria [] Musculoskeletal: Denies back pain or joint pain [] Current Medications Current Medications Current Medications Medications (Trade) Dose Ordered Sig/Joey Start Time Stop Time Status Last Admin Dose Admin Belladonna Alkaloids/Opium (B & O) 1 supp PRN Q12HR PRN 03/21/17 16:00 03/21/17 16:43 DC 03/21/17 16:18 1 SUPP Bisacodyl (Dulcolax Supp) 10 mg 1X ONCE 03/21/17 14:30 03/21/17 14:31 DC 03/21/17 14:24 10 MG Fentanyl Citrate (Fentanyl 2ml Vial) 75 mcg 1X ONCE 03/21/17 15:30 03/21/17 15:31 DC Hydromorphone HCl (Dilaudid) 1 mg 1X ONCE 03/21/17 16:00 03/21/17 16:01 DC 03/21/17 15:36 1 MG Info (Do NOT chart on this entry -- for MONITORING) 1 each PRN DAILY PRN 03/21/17 14:30 03/21/17 16:43 DC Iohexol (Omnipaque 300 Mg/ml) 75 ml 1X ONCE 03/21/17 14:30 03/21/17 14:31 DC 03/21/17 14:34 75 ML Morphine Sulfate 5 mg 1X ONCE 03/21/17 14:30 03/21/17 14:31 DC 03/21/17 14:08 5 MG Ondansetron HCl (Zofran) 4 mg 1X ONCE 03/21/17 14:30 03/21/17 14:31 DC 03/21/17 14:07 4 MG Oxycodone/ Acetaminophen (Percocet 5/325) 2 tab 1X ONCE 03/21/17 16:15 03/21/17 16:16 DC 03/21/17 16:19 2 TAB Sodium Chloride 1,000 ml @ 1,000 mls/hr 1X ONCE 03/21/17 14:30 03/21/17 15:29 DC 03/21/17 14:09 1,000 MLS/HR Allergies Allergies Allergies Coded Allergies Type Severity Reaction Last Updated Verified methylprednisolone Allergy Intermediate Hives 03/19/17 Yes trimethoprim Adverse Reaction Intermediate 03/19/17 Yes sulfamethoxazole Adverse Reaction Mild 03/19/17 Yes Physical Exam Physical Exam Constitutional: Well developed, well nourished, no acute distress, non-toxic appearance. [] Cardiovascular:Heart rate regular rhythm Abdomen: Diffuse left-sided abdominal tenderness with no rebound or guarding. Bowel sounds are present. Wounds appear clean dry and intact. Skin: Warm, dry, no erythema, no rash. [] Current Patient Data Vital Signs Vital Signs Date Time Temp Pulse Resp B/P (MAP) Pulse Ox O2 Delivery O2 Flow Rate FiO2 03/21/17 16:19 Room Air 03/21/17 15:46 64 117/83 (94) 96 03/21/17 15:36 18 03/21/17 13:45 97.5 97.5 Lab Values Laboratory Tests Test 03/21/17 13:55 03/21/17 14:30 White Blood Count 8.3 x10^3/uL (4.0-11.0) Red Blood Count 4.66 x10^6/uL (3.50-5.40) Hemoglobin 13.3 g/dL (12.0-15.5) Hematocrit 41.0 % (36.0-47.0) Mean Corpuscular Volume 88 fL (79-100) Mean Corpuscular Hemoglobin 29 pg (25-35) Mean Corpuscular Hemoglobin Concent 33 g/dL (31-37) Red Cell Distribution Width 14.4 % (11.5-14.5) Platelet Count 251 x10^3/uL (140-400) Neutrophils (%) (Auto) 54 % (31-73) Lymphocytes (%) (Auto) 36 % (24-48) Monocytes (%) (Auto) 7 % (0-9) Eosinophils (%) (Auto) 2 % (0-3) Basophils (%) (Auto) 1 % (0-3) Neutrophils # (Auto) 4.5 x10^3uL (1.8-7.7) Lymphocytes # (Auto) 2.9 x10^3/uL (1.0-4.8) Monocytes # (Auto) 0.6 x10^3/uL (0.0-1.1) Eosinophils # (Auto) 0.1 x10^3/uL (0.0-0.7) Basophils # (Auto) 0.1 x10^3/uL (0.0-0.2) Sodium Level 140 mmol/L (136-145) Potassium Level 3.9 mmol/L (3.5-5.1) Chloride Level 103 mmol/L (98-107) Carbon Dioxide Level 32 mmol/L (21-32) Anion Gap 5 (6-14) L Blood Urea Nitrogen 10 mg/dL (7-20) Creatinine 0.8 mg/dL (0.6-1.0) Estimated GFR (Cockcroft-Gault) 81.6 BUN/Creatinine Ratio 13 (6-20) Glucose Level 87 mg/dL (70-99) Lactic Acid Level 0.5 mmol/L (0.4-2.0) Calcium Level 8.8 mg/dL (8.5-10.1) Magnesium Level 1.9 mg/dL (1.8-2.4) Total Bilirubin 0.2 mg/dL (0.2-1.0) Aspartate Amino Transferase (AST) 44 U/L (15-37) H Alanine Aminotransferase (ALT) 44 U/L (14-59) Alkaline Phosphatase 49 U/L (46-116) Total Protein 6.8 g/dL (6.4-8.2) Albumin 3.5 g/dL (3.4-5.0) Albumin/Globulin Ratio 1.1 (1.0-1.7) Urine Collection Type Unknown Urine Color Yellow Urine Clarity Clear Urine pH 7.5 Urine Specific [place] 1.015 Urine Protein Negative mg/dL (NEG-TRACE) Urine Glucose (UA) Negative mg/dL (NEG) Urine Ketones (Stick) Negative mg/dL (NEG) Urine Blood Negative (NEG) Urine Nitrite Negative (NEG) Urine Bilirubin Negative (NEG) Urine Urobilinogen Dipstick 0.2 mg/dL (0.2 mg/dL) Urine Leukocyte Esterase Negative (NEG) Urine RBC 0 /HPF (0-2) Urine WBC Occ /HPF (0-4) Urine Squamous Epithelial Cells Mod /LPF Urine Bacteria 0 /HPF (0-FEW) Laboratory Tests 03/21/17 13:55 Laboratory Tests 03/21/17 13:55 EKG EKG [] Radiology/Procedures Radiology/Procedures CT abdomen and pelvis with contrast 03/21/2017 Clinical indication: Postoperative bladder sling and right ovary removed. Left-sided pain today. Comparison: CT abdomen and pelvis 03/16/2017, pelvic ultrasound 03/18/2017. Technique: Multiple CT axial images were obtained of the abdomen and pelvis following uneventful intravenous administration of 75 mL Omnipaque 300. PQRS Compliance Statement: One or more of the following individualized dose reduction techniques were utilized for this examination: 1. Automated exposure control 2. Adjustment of the mA and/or kV according to patient size 3. Use of iterative reconstruction technique Findings: Abdomen and pelvis: Heart size is within normal limits and visualized lung bases are clear. Liver, adrenal glands unremarkable. Spleen is absent. Prior distal right greater tech to me. No intra or extrahepatic biliary ductal dilatation. Both kidneys present and within normal limits. Abdominal aorta is normal in caliber. Major portal and visualized upper superior mesenteric veins are widely patent. Prior distal small bowel resection and anastomosis. There is a 15 mm oval high density structure which is likely intraluminal in a distal small bowel loop. No bowel obstruction. There is trace pelvic free fluid which may be physiologic. No retroperitoneal mesenteric lymphadenopathy. Mildly distended and unopacified urinary bladder within normal limits. No iliac or inguinal lymphadenopathy. No pneumoperitoneum. There are no destructive osseous lesions. Ill-defined anterior midline subcutaneous stranding likely from prior laparotomy. There is deep left lower quadrant subcutaneous edema with punctate foci of gas extending into the left lower quadrant anterior abdominal wall. There is a tiny fat-containing incisional hernia with a neck measuring 10 mm. Impression: 1. Status post recent right oophorectomy with postsurgical changes of the left lower quadrant anterior abdomen including mild subcutaneous stranding, punctate foci of gas, and tiny incisional fat-containing hernia with no associated loculated fluid collection to suggest abscess. 2. No bowel obstruction or intra-abdominal evidence for abscess. DICTATED and SIGNED BY: CARITO JUAREZ MD DATE: 03/21/17 0672 Course & Med Decision Making Course & Med Decision Making Patient with nonspecific postoperative abdominal pain which may be related to his CT findings of some fat stranding and subcutaneous gas. I spoke to her surgeon Dr. ihgh and he recommended discharge home with continued bowel regimen and trying a BNO suppository. Patient aware and agreeable with plan for discharge and verbalized understanding of the above instructions. Dragon Disclaimer Dragon Disclaimer This electronic medical record was generated, in whole or in part, using a voice recognition dictation system. Departure Departure Impression: Primary Impression: Abdominal pain Additional Impression: Post-op pain Disposition: 01 HOME, SELF-CARE Condition: GOOD Referrals: ALISON HUITRON Jr, MD Patient Instructions: Abdominal Pain Problem Qualifiers Primary Impression: Abdominal pain Abdominal location: left lower quadrant Qualified Codes: R10.32 - Left lower quadrant pain TAMY TROY DO Mar 21, 2017 15:40
[2017-03-21 15:46] VITALS: BP 117/83
[2017-03-21] MEDS ORDERED: HYDROmorphone 2 MG/ML VIAL IV ONE (16:00)
[2017-03-21] MEDS ORDERED: OPIUM/BELLADONNA 30/16.2MG SUPP.RECT. PR PRN (16:00)
[2017-03-21] MEDS ORDERED: oxyCODONE/APAP 5/325 1 TAB TABLET PO ONE (16:15)
== END 2017-03-21 16:42 | disposition home or self-care (01) ==
LOC: ER 13:40
DX: R10.84 Generalized abdominal pain (principal); R10.32 Left lower quadrant pain; G89.18 Other acute postprocedural pain; F41.9 Anxiety disorder, unspecified; Z90.710 Acquired absence of both cervix and uterus; Z90.81 Acquired absence of spleen; Z90.721 Acquired absence of ovaries, unilateral; Z90.410 Acquired total absence of pancreas; Z88.2 Allergy status to sulfonamides; Z88.1 Allergy status to other antibiotic agents; Z88.8 Allergy status to other drugs, medicaments and biological substances
CPT/HCPCS: 36415; 74177; 80053; 81001; 83605; 83735; 85027; 87040; 96361; 96374; 96375; 99285; C1887; J1170; J2270; J2405; J7030; Q9967

== ENCOUNTER 2017-04-08 02:22 | Emergency (ER) | payer OTHER ==
[~2017-04-08] VITALS: Ht 167.6 cm; Wt 64.4 kg
[2017-04-08 02:23] VITALS: BP 117/83
[2017-04-08] MEDS ORDERED: methylPREDNISolone ACETATE 80 MG/ML VIAL. IM ONE (03:00)
--- NOTE | 2017-04-08 04:40 | PHYS DOC ---
Past Medical History Past Medical History: Anxiety, Constipation, Other Additional Past Medical Histor: small bowel obstruction Past Surgical History: Hysterectomy, Oophorectomy, Splenectomy, Other Additional Past Surgical Histo: BOWEL RESECTION, transvaginal sling, PANCREATECTOMY, R OVARY/FALLOPIAN TUBE Alcohol Use: None Drug Use: None Adult General Chief Complaint Chief Complaint: SKIN PROBLEM HPI HPI Patient is a 37 year old female presents here today with poison lyn rash. Patient has had it for a while and is not improving. Patient is requesting evaluation for a shot of Depo-Medrol. 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 I discussed with the patient the possibility of doing a skin test while in the ER and watching her for half an hour. If there is no reaction then we can go ahead and give her doctor shot to assist her with her poison lyn. Patient understands the risks of the skin injection and understands the risk of receiving the methylprednisolone after the skin injection after even if there is no reaction. Patient will be monitored in the ER for 2 hours post IM injection and monitored for any signs of anaphylactic/allergic reaction from the steroid shot. Review of systems: Constitutional: Denies fever or chills Physical exam: Constitutional: Well developed, well nourished, no acute distress, non-toxic appearance. Skin: Rash consistent with poison lyn.. Assessment and plan 1. Poison lyn: Patient reports no significant improvement since she's been diagnosed with poison lyn. Patient reports she actually feels like it's spreading. She has requested a shot of Depo-Medrol. Patient is aware of her allergy to methylprednisolone but would like to try a dose to see if this was a true allergy or not. On the ER the patient was given a 0.1 mL intradermal injection of 80 mg/mL Depo-Medrol. This was circled on her right forearm. Patient was watched for one hour without any reaction to the injection. Patient was given a full dose of the remainder of the 80 mg of the pill IM to her right forearm and has been observed in the ER for 2 hours without any reaction. Patient is aware of the risks. Patient understands if she starts having any shortness of breath or wheezing airway compromise airway sensations or increasing rash at the site of injection to return immediately to the ER for further evaluation. Current Medications Current Medications Current Medications Medications (Trade) Dose Ordered Sig/Joey Start Time Stop Time Status Last Admin Dose Admin Methylprednisolone Acetate (DEPO-Medrol 80MG VIAL) 80 mg 1X ONCE 04/08/17 03:00 04/08/17 03:01 DC 04/08/17 02:47 80 MG Allergies Allergies Allergies Coded Allergies Type Severity Reaction Last Updated Verified methylprednisolone Allergy Intermediate Hives 03/19/17 Yes trimethoprim Adverse Reaction Intermediate 03/19/17 Yes sulfamethoxazole Adverse Reaction Mild 03/19/17 Yes Current Patient Data Vital Signs Vital Signs Date Time Temp Pulse Resp B/P (MAP) Pulse Ox O2 Delivery O2 Flow Rate FiO2 04/08/17 02:23 98.7 86 16 98 Room Air 98.7 EKG EKG [] Radiology/Procedures Radiology/Procedures [] Course & Med Decision Making Course & Med Decision Making Pertinent Labs and Imaging studies reviewed. (See chart for details) [] Dragon Disclaimer Dragon Disclaimer This electronic medical record was generated, in whole or in part, using a voice recognition dictation system. Departure Departure Impression: Primary Impression: Poison lyn Disposition: 01 HOME, SELF-CARE Condition: STABLE Referrals: GO MEJIAS MD (PCP) Patient Instructions: Allergy Skin Testing, Drug Allergy Additional Instructions: Please return to the ER if he has any symptoms that are concerning to regarding allergic reaction to the Depo-Medrol shot, especially any funny sensations in her throat wheezing or shortness of breath. EDIL SAAVEDRA MD Apr 08, 2017 04:40
== END 2017-04-08 02:48 | disposition home or self-care (01) ==
LOC: ER 02:22
DX: L23.7 Allergic contact dermatitis due to plants, except food (principal); F41.9 Anxiety disorder, unspecified; K56.60 Unspecified intestinal obstruction; Z88.1 Allergy status to other antibiotic agents; Z88.8 Allergy status to other drugs, medicaments and biological substances; Z88.2 Allergy status to sulfonamides; Z90.710 Acquired absence of both cervix and uterus; Z90.81 Acquired absence of spleen; Z96.0 Presence of urogenital implants
CPT/HCPCS: 96372; 99283; J1040

== ENCOUNTER 2017-08-03 15:15 | Emergency (ER) | payer OTHER ==
[~2017-08-03] VITALS: Ht 167.6 cm; Wt 65.3 kg
[~2017-08-03 15:15] MED LIST changes: -OXYC5TAB PO; +OXYC5TAB95 PO
[2017-08-03 15:20] VITALS: BP 142/91
--- NOTE | 2017-08-03 15:40 | PHYS DOC ---
Past Medical History Past Medical History: Anxiety, Constipation, Other Additional Past Medical Histor: small bowel obstruction Past Surgical History: Hysterectomy, Oophorectomy, Splenectomy, Other Additional Past Surgical Histo: BOWEL RESECTION, transvaginal sling, PANCREATECTOMY, R OVARY/FALLOPIAN TUBE Alcohol Use: None Drug Use: None Adult General Chief Complaint Chief Complaint: ABSCESS HPI HPI Patient is a 37 year old female who presents today complaining of a cyst she's had on her right groin for one year that has gotten worse in the last 1 day. Patient states she is supposed to have the cyst excised next week on Sunday. Patient states the cyst has gotten more painful that she is concerned she probably has an abscess to the area. Patient denies any fever. Denies any nausea vomiting. Denies any drainage from the area. General surgeon Dr. Bond Review of Systems Review of Systems Constitutional: Denies fever or chills [] Eyes: Denies change in visual acuity, redness, or eye pain [] HENT: Denies nasal congestion or sore throat [] Respiratory: Denies cough or shortness of breath [] Cardiovascular: No additional information not addressed in HPI [] GI: Denies abdominal pain, nausea, vomiting, bloody stools or diarrhea [] : Denies dysuria or hematuria [] Musculoskeletal: Denies back pain or joint pain [] Integument: Denies rash or skin lesions [] Neurologic: Denies headache, focal weakness or sensory changes [] Endocrine: Denies polyuria or polydipsia [] All other systems were reviewed and found to be within normal limits, except as documented in this note. Current Medications Current Medications Current Medications Medications (Trade) Dose Ordered Sig/Joey Start Time Stop Time Status Last Admin Dose Admin Hydromorphone HCl (Dilaudid) 1 mg 1X ONCE 08/03/17 15:45 08/03/17 15:46 DC 08/03/17 15:41 1 MG Allergies Allergies Allergies Coded Allergies Type Severity Reaction Last Updated Verified methylprednisolone Allergy Intermediate Hives 03/19/17 Yes trimethoprim Adverse Reaction Intermediate 03/19/17 Yes sulfamethoxazole Adverse Reaction Mild 03/19/17 Yes Physical Exam Physical Exam Constitutional: Well developed, well nourished, no acute distress, non-toxic appearance. [] HENT: Normocephalic, atraumatic, bilateral external ears normal, oropharynx moist, no oral exudates, nose normal. [] Eyes: PERRLA, EOMI, conjunctiva normal, no discharge. [] Neck: Normal range of motion, no tenderness, supple, no stridor. [] Cardiovascular:Heart rate regular rhythm, no murmur [] Lungs & Thorax: Bilateral breath sounds clear to auscultation [] Abdomen: Bowel sounds normal, soft, no tenderness, no masses, no pulsatile masses. [] Skin: Warm, dry, right groin with a non indurated area approx. 3X1 cm, the area feels very firm and has slight erythema with no drainage. The area is very TTP Back: No tenderness, no CVA tenderness. [] Extremities: No tenderness, no cyanosis, no clubbing, ROM intact, no edema. [] Neurologic: Alert and oriented X 3, normal motor function, normal sensory function, no focal deficits noted. [] Psychologic: Affect normal, judgement normal, mood normal. [] Current Patient Data Vital Signs Vital Signs Date Time Temp Pulse Resp B/P (MAP) Pulse Ox O2 Delivery O2 Flow Rate FiO2 08/03/17 15:41 16 99 Room Air 08/03/17 15:20 98.0 87 142/91 (108) 98.0 EKG EKG [] Radiology/Procedures Radiology/Procedures [] Course & Med Decision Making Course & Med Decision Making Pertinent Labs and Imaging studies reviewed. (See chart for details) Patient has right groin cyst for almost 1 yr that has gotten worse. She follows up with Dr. Bond who has scheduled her for removal of the cyst on Sunday next week. She is currently using clindamycin ointment on the area. I spoke to Dr. Bond and Dr. Ramirez and it was not possible to have this cyst removed today. Patient was given Dilaudid IM injection in the ED and was agreeable to being discharged and following up with Dr. Bond on Sunday for surgery. Instructed to return to the Ed if symptoms worsen. Dragon Disclaimer Dragon Disclaimer This electronic medical record was generated, in whole or in part, using a voice recognition dictation system. Departure Departure Impression: Primary Impression: Groin cyst Disposition: 01 HOME, SELF-CARE Condition: STABLE Referrals: GO MEJIAS MD (PCP) MIKE BOND MD follow up with Dr. Bond on Sunday. Additional Instructions: Please follow up with Dr. Bond on Sunday as scheduled for cyst removal. Return to the Ed if symptoms worsen. ASHANTI ROSS APRN Aug 03, 2017 15:40
[2017-08-03] MEDS ORDERED: HYDROmorphone 2 MG/ML VIAL IM ONE (15:45)
[2017-08-07] MEDS ORDERED: DULO60CA6 PO (07:23)
[2017-08-07] MEDS ORDERED: LIPA1CAP PO ×2 (07:24→07:27)
[2017-08-07] MEDS ORDERED: CLINDAMYCIN TOPICAL (07:42)
== END 2017-08-03 16:20 | disposition home or self-care (01) ==
LOC: ER 15:15
DX: L72.8 Other follicular cysts of the skin and subcutaneous tissue (principal); F41.9 Anxiety disorder, unspecified; Z90.710 Acquired absence of both cervix and uterus; Z90.81 Acquired absence of spleen; Z90.721 Acquired absence of ovaries, unilateral; Z88.8 Allergy status to other drugs, medicaments and biological substances; Z88.1 Allergy status to other antibiotic agents; Z88.2 Allergy status to sulfonamides
CPT/HCPCS: 96372; 99283; J1170

== ENCOUNTER 2017-08-07 15:46 | Emergency (ER) | payer OTHER ==
[~2017-08-07] VITALS: Ht 167.6 cm; Wt 63.5 kg
[~2017-08-07 15:46] MED LIST changes: +ALPR0.5T PO; +AZIT250T6 PO; +CITA40TA5 PO; +CLINDAMYCIN TOPICAL; +DOCU-109 PO; +DULO60CA6 PO; +HYDR-963 PO; -LIDOCAINE 1% PF 2 ML VIAL.; -LIDOCAINE 1%/EPI 1:100,000 20 ML VIAL.; +LIPA1CAP PO; +MAGN400T3 PO; +OXYC10TA PO; +OXYC5TAB95 PO; +PRED20TA PO; +PROM5SYR2 PO; +ROPI0.5T PO; +TRAZ50TA15 PO
[2017-08-07 15:50] VITALS: BP 129/79
--- NOTE | 2017-08-07 16:44 | PHYS DOC ---
Past Medical History Past Medical History: Anxiety, Constipation, Other Additional Past Medical Histor: small bowel obstruction Past Surgical History: Hysterectomy, Oophorectomy, Splenectomy, Other Additional Past Surgical Histo: BOWEL RESECTION, transvaginal sling, PANCREATECTOMY, R OVARY/FALLOPIAN TUBE Alcohol Use: None Drug Use: None Adult General Chief Complaint Chief Complaint: POST-OP PROBLEM HPI HPI Patient is a 37 year old female who presents with postoperative groin pain. The patient reports that she underwent excision of right groin mass this morning by Dr. Bond. She states she had recurrent cyst/abscess in that area, excised this morning under local anesthesia, discharged home, now having severe groin pain. She denies fevers/chills, nausea/vomiting, drainage from wound, erythema/warmth/swelling. She was not given any prescriptions at time of discharge, states she was told to take ibuprofen. She actually had some oxycodone at home for control of chronic pain, states her pain remains severe after taking this medication. She is a nurse at this hospital. Review of Systems Review of Systems Constitutional: Denies fever or chills HENT: Denies nasal congestion or sore throat Respiratory: Denies cough or shortness of breath Cardiovascular: Denies chest pain GI: Denies abdominal pain, nausea, vomiting, or diarrhea Musculoskeletal: Reports groin pain. Integument: Denies rash or skin lesions Neurologic: Denies headache All other systems were reviewed and found to be within normal limits, except as documented in this note. Current Medications Current Medications Current Medications Medications (Trade) Dose Ordered Sig/Joey Start Time Stop Time Status Last Admin Dose Admin Morphine Sulfate 5 mg 1X ONCE 08/07/17 16:45 08/07/17 16:46 DC 08/07/17 16:26 5 MG Allergies Allergies Allergies Coded Allergies Type Severity Reaction Last Updated Verified methylprednisolone Allergy Intermediate Hives 08/07/17 Yes trimethoprim Adverse Reaction Intermediate 08/07/17 Yes sulfamethoxazole Adverse Reaction Mild 08/07/17 Yes Physical Exam Physical Exam Constitutional: Well developed, well nourished, tearful. HENT: Normocephalic, atraumatic, bilateral external ears normal, oropharynx moist, nose normal. Eyes: conjunctiva normal, no discharge. Cardiovascular: RRR, no murmurs, no edema. Lungs & Thorax: LCTAB, no wheezing, no respiratory distress. Abdomen: soft, nontender, nondistended. Skin: no rash. Extremities: right groin incision with intact sutures covered by dry dressing, no drainage, no bleeding, no erythema/warmth/swelling, dp/pt 2+ to right lower extremity, symmetric strength/sensation to lower extremities. Neurologic: Alert and oriented X 3 Psychologic: tearful Current Patient Data Vital Signs Vital Signs Date Time Temp Pulse Resp B/P (MAP) Pulse Ox O2 Delivery O2 Flow Rate FiO2 08/07/17 15:50 97.6 93 22 129/79 (96) 99 Room Air 97.6 EKG EKG [] Radiology/Procedures Radiology/Procedures [] Course & Med Decision Making Course & Med Decision Making Pertinent Labs and Imaging studies reviewed. (See chart for details) The patient presents with postoperative pain after excision of right groin mass. Vitals are stable, afebrile, no sign of wound infection, no neurovascular compromise. Discussed briefly with Dr. Bond who expressed no concern for injury to surrounding structures or need for labs/imaging. Patient received IM morphine here. Recommend continued wound care as advised by Dr. Bond. Follow- up in surgery clinic for additional concerns. Return to the emergency department for signs of wound infection or otherwise worsening condition. Discharged home in stable condition. [] Dragon Disclaimer Dragon Disclaimer This electronic medical record was generated, in whole or in part, using a voice recognition dictation system. Departure Departure Impression: Primary Impression: Post-op pain Disposition: 01 HOME, SELF-CARE Condition: IMPROVED Referrals: GO MEJIAS MD (PCP) MIKE BOND MD Patient Instructions: Incision Care, [id number] Additional Instructions: You were seen in the emergency department today for postop pain. Please follow wound care instructions from your surgeon. Use tylenol or ibuprofen for pain. Follow up with Dr. Bond for additional concerns. Come back for fever, hot/red /swollen skin, purulent drainage, any otherwise worsening condition. SAMIRA CARRASCO MD Aug 07, 2017 16:44
[2017-08-07] MEDS ORDERED: MORPHINE SULFATE 10 MG/ML VIAL. IM ONE (16:45)
[2017-08-08] MEDS ORDERED: DULO20CA PO (08:22)
== END 2017-08-07 16:39 | disposition home or self-care (01) ==
LOC: ER 15:46
DX: G89.18 Other acute postprocedural pain (principal); R10.30 Lower abdominal pain, unspecified; G89.29 Other chronic pain; Z90.710 Acquired absence of both cervix and uterus; Z90.81 Acquired absence of spleen; Z90.721 Acquired absence of ovaries, unilateral; Z88.2 Allergy status to sulfonamides; Z88.8 Allergy status to other drugs, medicaments and biological substances
CPT/HCPCS: 96372; 99283; J2270

== ENCOUNTER → 2017-08-07 | Day surgery (SDC) | payer OTHER ==
[~2017-08-07] MED LIST changes: -ALPR0.5T PO; -AZIT250T6 PO; -CITA40TA5 PO; -DOCU-109 PO; -HYDR-963 PO; +LIDOCAINE 1% PF 2 ML VIAL.; +LIDOCAINE 1%/EPI 1:100,000 20 ML VIAL.; -MAGN400T3 PO; -OXYC10TA PO; -OXYC5TAB95 PO; -PRED20TA PO; -PROM5SYR2 PO; -ROPI0.5T PO; -TRAZ50TA15 PO
[2017-08-07] MEDS: LIDOCAINE 1%/EPI 1:100,000 20 ML VIAL. INJ (08:10)
[2017-08-07] MEDS: LIDOCAINE 2%/EPI 1:100,000 20 ML VIAL. IJ (08:32)
== END | disposition home or self-care (01) ==
LOC: SURG 07:08
DX: L72.0 Epidermal cyst (principal); L98.8 Other specified disorders of the skin and subcutaneous tissue; Z90.710 Acquired absence of both cervix and uterus; Z98.890 Other specified postprocedural states; F41.9 Anxiety disorder, unspecified; Z87.39 Personal history of other diseases of the musculoskeletal system and connective tissue; Z88.1 Allergy status to other antibiotic agents; Z88.8 Allergy status to other drugs, medicaments and biological substances
CPT/HCPCS: 11400; 88304; J3490

== ENCOUNTER → 2017-08-08 | Day surgery (SDC) | payer OTHER ==
[~2017-08-08] MED LIST changes: -ALPR0.5T PO; -AZIT250T6 PO; -CITA40TA5 PO; -CLINDAMYCIN TOPICAL; -DOCU-109 PO; -DULO60CA6 PO; -HYDR-963 PO; +LIDOCAINE 1% PF 2 ML VIAL. ID; +LIDOCAINE 2% PF Vial for OR 5 ML VIAL.; -LIPA1CAP PO; -MAGN400T3 PO; +MIDAZOLAM HCL/PF 2 MG/2 ML VIAL. IV; -OXYC10TA PO; -OXYC5TAB95 PO; -PRED20TA PO; -PROM5SYR2 PO; +PROPOFOL 40 ML IV; -ROPI0.5T PO; -TRAZ50TA15 PO; +fentaNYL PF VIAL 100 MCG/2 ML VIAL IV
[2017-08-08] MEDS: IV RINGERS,LACTATED 1000ML 1,000 ML IV (08:42)
== END | disposition home or self-care (01) ==
LOC: ENDOS 07:49
DX: K64.0 First degree hemorrhoids (principal); K52.9 Noninfective gastroenteritis and colitis, unspecified; K29.50 Unspecified chronic gastritis without bleeding; K31.89 Other diseases of stomach and duodenum; F41.9 Anxiety disorder, unspecified; Z90.710 Acquired absence of both cervix and uterus; Z87.39 Personal history of other diseases of the musculoskeletal system and connective tissue; Z88.2 Allergy status to sulfonamides; Z88.8 Allergy status to other drugs, medicaments and biological substances; Z87.891 Personal history of nicotine dependence
CPT/HCPCS: 45380; 88305; J2704

== ENCOUNTER 2017-10-11 14:02 | Emergency (ER) | payer OTHER ==
[2017-10-11] MEDS ORDERED: ALPRAZolam 0.5 MG TABLET PO ×2 (14:30)
[2017-10-11 14:39] LABS: ADD MAN DIFF? NO; BASO # 0.1 x10^3/uL (0.0-0.2); BASO % 1 % (0-3); EOS # 0.1 x10^3/uL (0.0-0.7); EOS % 1 % (0-3); HEMATOCRIT 44.4 % (36.0-47.0); HEMOGLOBIN 14.7 g/dL (12.0-15.5); LYMPH # 2.6 x10^3/uL (1.0-4.8); LYMPH % 25 % (24-48); MEAN CORPUSCULAR HEMOGLOBIN 29 pg (25-35); MEAN CORPUSCULAR HGB CONC 33 g/dL (31-37); MEAN CORPUSCULAR VOLUME 87 fL (79-100); MONO # 0.5 x10^3/uL (0.0-1.1); MONO % 5 % (0-9); NEUT # 7.1 x10^3uL (1.8-7.7); NEUT % 68 % (31-73); PLATELET COUNT 350 x10^3/uL (140-400); RED BLOOD COUNT 5.09 x10^6/uL (3.50-5.40); RED CELL DISTRIBUTION WIDTH 14.6 % (11.5-14.5); WHITE BLOOD COUNT 10.5 x10^3/uL (4.0-11.0)
[2017-10-11] MEDS: diphenhydrAMINE 50 MG/ML VIAL IVP ×2 (14:42)
[2017-10-11] MEDS: IV NORMAL SALINE 1000ML BAG 1,000 ML IV ×2 (14:42)
[2017-10-11] MEDS: KETOROLAC 30 MG/ML INJ. IV ×2 (14:43)
[2017-10-11 14:55] LABS: ANION GAP 6 (6-14); BLOOD UREA NITROGEN 18 mg/dL (7-20); CALCIUM 9.6 mg/dL (8.5-10.1); CARBON DIOXIDE 28 mmol/L (21-32); CHLORIDE 103 mmol/L (98-107); CREATININE 0.7 mg/dL (0.6-1.0); GFR 95.2; GLUCOSE 102 mg/dL (70-99); POTASSIUM 3.7 mmol/L (3.5-5.1); SODIUM 137 mmol/L (136-145)
[2017-10-11] MEDS: PROMETHAZINE 12.5 MG in IV DEXTROSE 5% 50 ML IV (15:18)
[2017-10-11] MEDS: MORPHINE SULFATE 10 MG/ML VIAL. IV ×2 (16:40)
== END 2017-10-11 16:55 | disposition home or self-care (01) ==
LOC: ER 14:02
DX: G43.009 Migraine without aura, not intractable, without status migrainosus (principal); F41.9 Anxiety disorder, unspecified; Z88.1 Allergy status to other antibiotic agents; Z88.2 Allergy status to sulfonamides; Z88.8 Allergy status to other drugs, medicaments and biological substances
CPT/HCPCS: 36415; 80048; 85025; 96365; 96375; 99284-25; J1200; J1885; J2060; J2270; J2550; J7030

== ENCOUNTER 2017-10-29 11:07 | Emergency (ER) | payer OTHER ==
[2017-10-29] MEDS: KETOROLAC 60 MG/2 ML INJ. IM (12:16)
[2017-10-29] MEDS: ONDANSETRON ODT 4 MG TAB.RAPDIS. PO (12:16)
[2017-10-29] MEDS: MORPHINE SULFATE 4 MG/ML DISP.SYRIN. IM (12:18)
== END 2017-10-29 12:59 | disposition home or self-care (01) ==
LOC: ER 11:07
DX: G43.009 Migraine without aura, not intractable, without status migrainosus (principal); F41.9 Anxiety disorder, unspecified; Z88.2 Allergy status to sulfonamides; Z88.1 Allergy status to other antibiotic agents; Z88.8 Allergy status to other drugs, medicaments and biological substances
CPT/HCPCS: 96372; 99284-25; J1885; J2270; Q0162

== ENCOUNTER 2018-01-17 12:38 | Emergency (ER) | payer OTHER ==
[2018-01-17 13:18] LABS: BILIRUBIN,URINE NEGATIVE (NEG); CLARITY,URINE CLEAR; COLOR,URINE YELLOW; GLUCOSE,URINE NEGATIVE (NEG); NITRITE,URINE NEGATIVE (NEG); PH,URINE 5.5; PROTEIN,URINE NEGATIVE (NEG-TRACE); UROBILINOGEN,URINE 0.2 mg/dL (0.2 mg/dL)
[2018-01-17 13:26] LABS: ADD MAN DIFF? NO
[2018-01-17 13:27] LABS: BACTERIA,URINE 0 /HPF (0-FEW); SQUAMOUS EPITHELIAL CELL,UR MANY /LPF; WBC,URINE OCC /HPF (0-4)
[2018-01-17] MEDS: MORPHINE SULFATE 4 MG/ML DISP.SYRIN. IV ×3 (13:29→14:53)
[2018-01-17] MEDS: IV NORMAL SALINE 1000ML BAG 1,000 ML IV (13:30)
[2018-01-17 13:36] LABS: BASO # 0.1 x10^3/uL (0.0-0.2); BASO % 1 % (0-3); EOS % 1 % (0-3); LYMPH # 2.8 x10^3/uL (1.0-4.8); LYMPH % 41 % (24-48); MEAN CORPUSCULAR HEMOGLOBIN 29 pg (25-35); MEAN CORPUSCULAR HGB CONC 34 g/dL (31-37); MEAN CORPUSCULAR VOLUME 86 fL (79-100); MONO # 0.5 x10^3/uL (0.0-1.1); MONO % 7 % (0-9); NEUT # 3.4 x10^3uL (1.8-7.7); NEUT % 50 % (31-73); PLATELET COUNT 307 x10^3/uL (140-400); WHITE BLOOD COUNT 6.8 x10^3/uL (4.0-11.0)
[2018-01-17 13:41] LABS: ANION GAP 11 (6-14); BLOOD UREA NITROGEN 13 mg/dL (7-20); BUN/CREATININE RATIO 16 (6-20); CALCIUM 9.8 mg/dL (8.5-10.1); CARBON DIOXIDE 23 mmol/L (21-32); CHLORIDE 104 mmol/L (98-107); CREATININE 0.8 mg/dL (0.6-1.0); GFR 81.6; GLUCOSE 120 mg/dL (70-99); POTASSIUM 3.6 mmol/L (3.5-5.1); SODIUM 138 mmol/L (136-145)
[2018-01-17 13:47] LABS: ALBUMIN 4.2 g/dL (3.4-5.0); ALBUMIN/GLOBULIN RATIO 1.2 (1.0-1.7); ALK PHOS 62 U/L (46-116); ALT (SGPT) 25 U/L (14-59); AST (SGOT) 20 U/L (15-37); TOTAL BILIRUBIN 0.7 mg/dL (0.2-1.0); TOTAL PROTEIN 7.8 g/dL (6.4-8.2)
[2018-01-17 20:05] LABS: CRENATED RBC PRESENT; OVALOCYTES OCC; PLT ESTIMATE INCREASED (ADEQUATE); POLYCHROMASIA SLIGHT
== END 2018-01-17 14:55 | disposition home or self-care (01) ==
LOC: ER 12:38
DX: R10.9 Unspecified abdominal pain (principal); K63.89 Other specified diseases of intestine; G43.909 Migraine, unspecified, not intractable, without status migrainosus; Z88.2 Allergy status to sulfonamides; Z88.1 Allergy status to other antibiotic agents; Z88.8 Allergy status to other drugs, medicaments and biological substances
CPT/HCPCS: 36415; 74176; 80053; 81001; 85025; 96374; 96376; 99285-25; J2270; J7030

== ENCOUNTER 2018-03-20 11:00 | Emergency (ER) | payer OTHER ==
[2018-03-20 11:23] LABS: ADD MAN DIFF? NO
[2018-03-20 11:26] LABS: BASO % 0 % (0-3); EOS # 0.1 x10^3/uL (0.0-0.7); EOS % 1 % (0-3); HEMATOCRIT 43.5 % (36.0-47.0); HEMOGLOBIN 14.5 g/dL (12.0-15.5); LYMPH # 2.9 x10^3/uL (1.0-4.8); LYMPH % 40 % (24-48); MEAN CORPUSCULAR HEMOGLOBIN 29 pg (25-35); MEAN CORPUSCULAR HGB CONC 33 g/dL (31-37); MEAN CORPUSCULAR VOLUME 87 fL (79-100); MONO # 0.5 x10^3/uL (0.0-1.1); MONO % 6 % (0-9); NEUT # 3.9 x10^3uL (1.8-7.7); NEUT % 53 % (31-73); PLATELET COUNT 302 x10^3/uL (140-400); RED BLOOD COUNT 4.99 x10^6/uL (3.50-5.40); RED CELL DISTRIBUTION WIDTH 14.2 % (11.5-14.5); WHITE BLOOD COUNT 7.4 x10^3/uL (4.0-11.0)
[2018-03-20] MEDS: IV NORMAL SALINE 1000ML BAG 1,000 ML IV (11:31)
[2018-03-20 11:32] LABS: ANION GAP 11 (6-14); BLOOD UREA NITROGEN 12 mg/dL (7-20); BUN/CREATININE RATIO 13 (6-20); CALCIUM 9.8 mg/dL (8.5-10.1); CARBON DIOXIDE 23 mmol/L (21-32); CHLORIDE 104 mmol/L (98-107); CREATININE 0.9 mg/dL (0.6-1.0); GFR 70.8; GLUCOSE 114 mg/dL (70-99); POTASSIUM 3.9 mmol/L (3.5-5.1); SODIUM 138 mmol/L (136-145)
[2018-03-20] MEDS: ONDANSETRON PF 4 MG/2 ML VIAL. IV (11:33)
[2018-03-20] MEDS: MORPHINE SULFATE 4 MG/ML DISP.SYRIN. IV ×4 (11:36→15:41)
[2018-03-20 11:38] LABS: ALBUMIN 4.5 g/dL (3.4-5.0); ALBUMIN/GLOBULIN RATIO 1.2 (1.0-1.7); ALK PHOS 56 U/L (46-116); ALT (SGPT) 19 U/L (14-59); AST (SGOT) 15 U/L (15-37); LIPASE 130 U/L (73-393); TOTAL BILIRUBIN 0.5 mg/dL (0.2-1.0); TOTAL PROTEIN 8.3 g/dL (6.4-8.2)
[2018-03-20] MEDS: IOHEXOL 300 MG/ML 100ML VIAL. IV (12:00)
[2018-03-20] MEDS: IOHEXOL 240 MG/ML 50ML VIAL. PO (12:00)
[2018-03-20] MEDS ORDERED: CONTRAST GIVEN. MC (12:00)
[2018-03-20 14:04] LABS: PLT ESTIMATE ADEQUATE (ADEQUATE)
[2018-03-20 14:08] LABS: HOWELL-JOLLY BODIES PRESENT
[2018-03-20 14:11] LABS: ACANTHOCYTES OCC
== END 2018-03-20 15:40 | disposition home or self-care (01) ==
LOC: ER 11:00
DX: R10.32 Left lower quadrant pain (principal); R11.2 Nausea with vomiting, unspecified; G43.909 Migraine, unspecified, not intractable, without status migrainosus; Z90.710 Acquired absence of both cervix and uterus; Z90.721 Acquired absence of ovaries, unilateral; Z90.81 Acquired absence of spleen; Z90.410 Acquired total absence of pancreas; Z88.2 Allergy status to sulfonamides; Z88.8 Allergy status to other drugs, medicaments and biological substances; Z88.5 Allergy status to narcotic agent
CPT/HCPCS: 36415; 74177; 80053; 83690; 85025; 96361; 96374; 96375; 96376; 99285-25; J2270; J2405; J7030; Q9966; Q9967

== ENCOUNTER → 2018-06-26 | Outpatient (CLI) | payer OTHER ==
[2018-04-16 12:15] VITALS: BP 190/109
[~2018-06-26] MED LIST changes: +ALPR0.5T PO; +AZIT250T6 PO; +CIPR500T94 PO; +CITA40TA5 PO; +CLINDAMYCIN TOPICAL; +DIPH25CA58 PO; +DOCU-109 PO; +DULO20CA PO; +DULO30CA2 PO; +DULO60CA6 PO; +HYDR-963 PO; -LIDOCAINE 1% PF 2 ML VIAL. ID; -LIDOCAINE 2% PF Vial for OR 5 ML VIAL.; +LIPA1CAP PO; +MAGN400T3 PO; -MIDAZOLAM HCL/PF 2 MG/2 ML VIAL. IV; +OMEP20CA9 PO; +OXYC10TA PO; +OXYC1TAB7 PO; +OXYC5TAB95 PO; +PRED20TA PO; +PROM25TA10 PO; +PROM5SYR2 PO; -PROPOFOL 40 ML IV; +ROPI0.5T PO; +SUMA50TA3 PO; +TOPI25TA7 PO; +TRAZ-85 PO; -fentaNYL PF VIAL 100 MCG/2 ML VIAL IV
--- NOTE | 2018-06-26 15:50 | KCIC ---
MRI of the lumbar spine without contrast 06/26/2018 CLINICAL HISTORY: Severe low back pain for 3 months. TECHNIQUE: Unenhanced T1-weighted and T2-weighted sagittal and axial and inversion recovery sagittal images of the lumbar spine were obtained. FINDINGS: Comparison study is dated 03/17/2015. Minimal S-shaped curvature of the thoracolumbar spine is seen. Degenerative signal changes and loss of height are seen involving the L5-S1 disc. The marrow signal of the visualized bony structures is within normal limits. The conus medullaris is normal morphology, position, and signal characteristics. The L1-2, L2-3 and L3-4 disc spaces are within normal limits. At the L4-5 disc space there is a minimal generalized disc bulge. Degenerative changes are seen involving the facet joints bilaterally. There is mild ligamentum flavum hypertrophy bilaterally. These findings do not result in significant central spinal canal or neural foraminal stenosis. At the L5-S1 disc space there is a mild generalized disc bulge. Superimposed on this disc bulge is a focal central disc protrusion. This measures 3 mm in AP diameter. Degenerative changes are seen involving the facet joints bilaterally. There is mild ligamentum flavum hypertrophy. These findings do not result in significant central spinal canal or neural foraminal stenosis. Since the previous examination there has been no significant interval change. IMPRESSION: The changes of degenerative disc disease are seen involving the lumbar spine. These findings do not result in significant central spinal canal or neural foraminal stenosis at any level. Electronically signed by: Gino Carrillo MD (06/26/2018 3:46 PM) [id number]
== END | disposition home or self-care (01) ==
LOC: KCIC MRI 11:25
PROVIDERS: ATTEND Nurse Practitioner Family
DX: M51.36 Other intervertebral disc degeneration, lumbar region (principal)
CPT/HCPCS: 72148

== ENCOUNTER → 2018-07-11 | Outpatient (CLI) | payer OTHER ==
[2018-04-16 12:15] VITALS: BP 190/109
[~2018-07-11] MED LIST changes: +HYDR-3135 PO; -HYDR-963 PO
--- NOTE | 2018-07-11 14:08 | RAD ---
Ultrasound abdomen limited 07/11/2018 CLINICAL INDICATION: Abdominal hernia surgery with focal pain at the incisional site. COMPARISON: CT abdomen and pelvis 04/11/2018 FINDINGS: Limited grayscale and color Doppler imaging at the focal area of pain adjacent to the umbilicus surgery site. There are postsurgical changes with mild edema extending from the midline subcutaneous tissues to the midline abdominal wall without focal loculation or hyperemia. No evidence of recurrent hernia with Valsalva technique. IMPRESSION: 1. Midline scarring and mild edema without loculation or hyperemia, likely postoperative changes. 2. No evidence of recurrent umbilical hernia. Electronically signed by: Misha Darnell MD (07/11/2018 2:04 PM) [facility]
== END | disposition home or self-care (01) ==
LOC: INTRAD 01:02
PROVIDERS: ATTEND Surgery
DX: T81.89XA Other complications of procedures, not elsewhere classified, initial encounter (principal); L90.5 Scar conditions and fibrosis of skin; Y83.8 Other surgical procedures as the cause of abnormal reaction of the patient, or of later complication, without mention of misadventure at the time of the procedure; Y92.89 Other specified places as the place of occurrence of the external cause; Z98.890 Other specified postprocedural states; Z88.2 Allergy status to sulfonamides; Z88.6 Allergy status to analgesic agent; Z88.8 Allergy status to other drugs, medicaments and biological substances
CPT/HCPCS: 76705

== ENCOUNTER 2018-07-15 18:47 | Emergency (ER) | payer OTHER ==
[~2018-07-15] VITALS: Ht 162.6 cm; Wt 63.5 kg
[~2018-07-15 18:47] MED LIST changes: +OXYC5TAB4 PO; -OXYC5TAB95 PO
[2018-07-15 18:58] VITALS: BP 140/92
[2018-07-15] MEDS ORDERED: PRED20TA PO (19:22)
[2018-07-15] MEDS ORDERED: LIDO700A39 TP (19:22)
--- NOTE | 2018-07-15 19:22 | PHYS DOC ---
Past Medical History Past Medical History: Anemia, Anxiety, Constipation, Migraines, Other Additional Past Medical Histor: SBO, iron def anemia, PANCREATIC TUMOR, Past Surgical History: Hysterectomy, Oophorectomy, Splenectomy, Other Additional Past Surgical Histo: BOWEL RESECTION, transvaginal sling, PANCREATECTOMY, R OVARY/FALLOPIAN TUBE Alcohol Use: Occasionally Drug Use: None Adult General Chief Complaint Chief Complaint: LOWER BACK PAIN OR INJURY HPI HPI 38-year-old female presents with report of low back pain after slipping on ice this morning. Patient reports she was getting into her car and ended up slipping but was able to catch herself. Patient reports aggravating her chronic back pain. Denies loss of bowel or bladder. Denies fever or chills. Denies other injury. Review of Systems Review of Systems Constitutional: Denies fever or chills [] Eyes: Denies change in visual acuity, redness, or eye pain [] HENT: Denies nasal congestion or sore throat [] Respiratory: Denies cough or shortness of breath [] Cardiovascular: Denies chest pain or palpitations GI: Denies abdominal pain, nausea, vomiting, or diarrhea [] : Denies dysuria or hematuria [] Musculoskeletal: Reports back pain; denies joint pain [] Integument: Denies rash or skin lesions [] Neurologic: Denies headache, focal weakness or sensory changes, loss of bowel or bladder Complete systems were reviewed and found to be within normal limits, except as documented in this note. Current Medications Current Medications Current Medications Medications (Trade) Dose Ordered Sig/Joey Start Time Stop Time Status Last Admin Dose Admin Dexamethasone (Decadron) 10 mg 1X ONCE 07/15/18 19:30 07/15/18 19:31 DC 07/15/18 19:31 10 MG Lidocaine (Lidoderm) 1 patch 1X ONCE 07/15/18 19:30 07/15/18 19:31 DC 07/15/18 19:30 1 PATCH Morphine Sulfate (Morphine Sulfate) 6 mg 1X ONCE 07/15/18 19:30 07/15/18 19:31 DC 07/15/18 19:32 6 MG Orphenadrine Citrate (Norflex) 60 mg 1X ONCE 07/15/18 19:30 07/15/18 19:31 DC 07/15/18 19:31 60 MG Allergies Allergies Allergies Coded Allergies Type Severity Reaction Last Updated Verified methylprednisolone Allergy Intermediate Hives 12/20/17 Yes trimethoprim Adverse Reaction Intermediate 08/08/17 Yes sulfamethoxazole Adverse Reaction Mild 08/08/17 Yes Physical Exam Physical Exam Constitutional: Well developed, well nourished, no acute distress, non-toxic appearance. [] HENT: Normocephalic, atraumatic, bilateral external ears normal, oropharynx moist, no oral exudates, nose normal. [] Eyes: Conjunctiva normal, no discharge. [] Neck: Normal range of motion, no tenderness, supple, no meningeal signs Cardiovascular: Heart rate regular rhythm, no murmur [] Lungs & Thorax: Bilateral breath sounds clear to auscultation [] Abdomen: Soft, no tenderness, Skin: Warm, dry, no erythema, no rash. [] Back: Bilateral paraspinal tenderness, no spinal tenderness or step-off Extremities: No tenderness, ROM intact, no edema. [] Neurologic: Alert and oriented X 3, normal motor function, normal sensory function, no focal deficits noted. [] Psychologic: Affect normal, judgement normal, mood normal. [] Current Patient Data Vital Signs Vital Signs Date Time Temp Pulse Resp B/P (MAP) Pulse Ox O2 Delivery O2 Flow Rate FiO2 07/15/18 19:32 16 99 Room Air 07/15/18 18:58 97.5 100 140/92 (108) 97.5 EKG EKG [] Radiology/Procedures Radiology/Procedures [] Course & Med Decision Making Course & Med Decision Making Patient presents with history of present illness and physical exam consistent for exacerbation of chronic low back pain. No midline bony tenderness noted. Denies loss of bowel or bladder. Symptomatic treatment provided.Patient stable for discharge with outpatient follow-up with PCP/pain specialist. Pain specialty referral provided. Discussed findings and plan with patient, who acknowledges understanding and agreement. Dragon Disclaimer Dragon Disclaimer This electronic medical record was generated, in whole or in part, using a voice recognition dictation system. Departure Departure Impression: Primary Impression: Acute exacerbation of chronic low back pain Disposition: HOME, SELF-CARE Condition: STABLE Referrals: MAYUR VOSS MD (PCP) MARIO MUKHERJEE MD Patient Instructions: Back Pain, Adult, [id number]-[id number] Scripts Lidocaine (Lidocaine) 1 Each Adh..patch 1 EACH TP Q12HR, #6 PATCH Keep patch on for first 12 hours then remove for next 12 hours. Must change daily. Prov: CHIQUITA BONILLA DO 07/15/18 Prednisone (PREDNISONE) 20 Mg Tablet 2 TAB PO DAILY, #8 TAB Start on Sunday07/16/18 Prov: CHIQUITA BONILLA DO 07/15/18 CHIQUITA BONILLA DO Jul 15, 2018 19:22
[2018-07-15] MEDS ORDERED: ORPHENADRINE CITRATE 60 MG/2 ML VIAL. IM ONE (19:30)
[2018-07-15] MEDS ORDERED: MORPHINE SULFATE 10 MG/ML VIAL. IM ONE (19:30)
[2018-07-15] MEDS ORDERED: DEXAMETHASONE 4 MG TABLET PO ONE (19:30)
[2018-07-15] MEDS ORDERED: LIDOCAINE (700MG/PATCH) PATCH. TD ONE (19:30)
== END 2018-07-15 19:43 | disposition home or self-care (01) ==
LOC: ER 18:47
DX: G89.29 Other chronic pain (principal); M54.5 Low back pain; F41.9 Anxiety disorder, unspecified; G43.909 Migraine, unspecified, not intractable, without status migrainosus; Z86.2 Personal history of diseases of the blood and blood-forming organs and certain disorders involving the immune mechanism; Z90.710 Acquired absence of both cervix and uterus; Z90.722 Acquired absence of ovaries, bilateral; Z90.81 Acquired absence of spleen; Z90.410 Acquired total absence of pancreas; Z88.1 Allergy status to other antibiotic agents; Z88.2 Allergy status to sulfonamides; Z88.8 Allergy status to other drugs, medicaments and biological substances
CPT/HCPCS: 96372; 99283; J2270; J2360; J8540

== ENCOUNTER 2018-08-21 14:48 | Emergency (ER) | payer OTHER ==
[~2018-08-21] VITALS: Ht 167.6 cm; Wt 54.4 kg
[~2018-08-21 14:48] MED LIST changes: +LIDO700A39 TP
--- NOTE | 2018-08-21 15:43 | EKG ---
[facility] [address] [place] [address] Test Date: 2018-08-21 Test Time: 15:02:59 Pat Name: DAR EDUARDO Department: Room: Gender: F Sawyer [place]: : 1980 Requested By: VENTURA FAIRCHILD Order Number: [id number] Reading MD: Measurements Intervals [place] Rate: 76 P: 66 VT: 160 QRS: 85 QRSD: 90 T: 59 QT: 398 QTc: 452 Interpretive Statements SINUS RHYTHM INCOMPLETE RIGHT BUNDLE BRANCH BLOCK OTHERWISE NORMAL ECG RI6.01 No previous ECG available for comparison
[2018-08-21] MEDS ORDERED: ASPIRIN 325 MG TABLET PO ONE (15:45)
[2018-08-21] MEDS ORDERED: DICYCLOMINE HCL 10 MG CAPSULE PO ONE (15:45)
[2018-08-21] MEDS ORDERED: IV NORMAL SALINE 1000ML BAG 1,000 ML IV ONE (15:45)
[2018-08-21] MEDS ORDERED: LIDO:MAALOX 1:1 20 ML SINGLE DOSE. SWSW ONE (15:45)
[2018-08-21] MEDS ORDERED: ONDANSETRON PF 4 MG/2 ML VIAL. IV ONE (15:45)
[2018-08-21] MEDS ORDERED: MORPHINE SULFATE 10 MG/ML VIAL. IV ONE (15:45)
[2018-08-21 15:51] LABS: BASO # 0.1 x10^3/uL (0.0-0.2); BASO % 1 % (0-3); EOS % 0 % (0-3); HEMATOCRIT 41.4 % (36.0-47.0); HEMOGLOBIN 14.1 g/dL (12.0-15.5); LYMPH # 2.6 x10^3/uL (1.0-4.8); LYMPH % 25 % (24-48); MEAN CORPUSCULAR HEMOGLOBIN 28 pg (25-35); MEAN CORPUSCULAR HGB CONC 34 g/dL (31-37); MEAN CORPUSCULAR VOLUME 83 fL (79-100); MONO # 0.5 x10^3/uL (0.0-1.1); MONO % 5 % (0-9); NEUT # 7.2 x10^3uL (1.8-7.7); NEUT % 69 % (31-73); PLATELET COUNT 349 x10^3/uL (140-400); RED BLOOD COUNT 5.02 x10^6/uL (3.50-5.40); RED CELL DISTRIBUTION WIDTH 15.9 % (11.5-14.5); WHITE BLOOD COUNT 10.3 x10^3/uL (4.0-11.0)
--- NOTE | 2018-08-21 15:57 | RAD ---
EXAM: PA and Lateral Views of the Chest DATE: 08/21/2018 3:30 PM INDICATION: LEFT SIDED CHEST PAIN TODAY COMPARISON: No Prior FINDINGS: The heart is not enlarged. Mediastinal and hilar contours are normal. No focal parenchymal airspace opacity. No pleural effusion or pneumothorax. IMPRESSION: 1. No radiographic evidence for acute cardiopulmonary process. Electronically signed by: Jesus Renner MD (08/21/2018 3:53 PM) [facility]
[2018-08-21 16:01] LABS: PROTHROMBIN TIME PATIENT 12.4 SEC (11.7-14.0)
[2018-08-21 16:03] LABS: MAGNESIUM 2.2 mg/dL (1.8-2.4)
[2018-08-21 16:04] LABS: CALCIUM 10.2 mg/dL (8.5-10.1); CREATININE 0.8 mg/dL (0.6-1.0); GFR 81.2; POTASSIUM 3.9 mmol/L (3.5-5.1)
[2018-08-21 16:10] LABS: ALBUMIN 4.2 g/dL (3.4-5.0); ALBUMIN/GLOBULIN RATIO 1.2 (1.0-1.7); TOTAL BILIRUBIN 0.5 mg/dL (0.2-1.0); TOTAL PROTEIN 7.8 g/dL (6.4-8.2)
[2018-08-21 16:20] LABS: CREATINE KINASE 77 U/L (26-192)
[2018-08-21] MEDS ORDERED: HYDROmorphone 2 MG/ML VIAL IV ONE ×2 (16:45→18:30)
[2018-08-21 17:22] LABS: BILIRUBIN,URINE NEGATIVE (NEG); CLARITY,URINE CLOUDY; COLOR,URINE YELLOW; NITRITE,URINE NEGATIVE (NEG); PROTEIN,URINE NEGATIVE (NEG-TRACE); UROBILINOGEN,URINE 0.2 mg/dL (0.2 mg/dL)
[2018-08-21 17:29] LABS: AMORPHOUS SEDIMENT,UR PRESENT /HPF; BACTERIA,URINE 0 /HPF (0-FEW); RBC,URINE 0 /HPF (0-2); SQUAMOUS EPITHELIAL CELL,UR OCC /LPF; WBC,URINE RARE /HPF (0-4)
--- NOTE | 2018-08-21 18:42 | RAD ---
KUB, supine Clinical Indication: Low abdominal pain Comparison: KUB, April 14, 2018. CT abdomen and pelvis with contrast August 08, 2018. Findings: No obvious opacity in the lung bases. Surgical clips left upper abdomen are stable. No dilated bowel loops are seen. There is suture material in the pelvis. No organomegaly. Bones appear stable. IMPRESSION: Nonobstructive bowel gas pattern. Electronically signed by: Ron Dominguez MD (08/21/2018 6:38 PM) [facility]
[2018-08-21] MEDS ORDERED: OXYC5CAP PO (19:01)
--- NOTE | 2018-08-21 19:01 | PHYS DOC ---
Past Medical History Past Medical History: Anemia, Anxiety, Constipation, Migraines, Other Additional Past Medical Histor: SBO, iron def anemia, PANCREATIC TUMOR, Past Surgical History: Hysterectomy, Oophorectomy, Splenectomy, Other Additional Past Surgical Histo: BOWEL RESECTION, transvaginal sling, PANCREATECTOMY, R OVARY/FALLOPIAN TUBE Alcohol Use: Occasionally Drug Use: None Adult General Chief Complaint Chief Complaint: CHEST PAIN [facility] HPI Patient is a 38 year old female with a history of anxiety, chronic abdominal pain, migraine headaches, who presents today complaining of moderate left-sided abdominal pain with diarrhea that began this morning. Patient states she's had multiple abdominal surgeries (5) including removal of part of her colon, Pancrease etc please look at her previous visits. She states she's had ongoing abdominal issues for a while. She states she currently is having a hard time gaining weight because most of the foods she is supposed to eat gives her diarrhea right away. Patient denies any nausea or vomiting. Patient is very tearful. She states when her symptoms began she continued doing her own daily activities, she states she decided to go to the store this afternoon she states when she was at the store she developed sharp moderate left-sided chest pain nonradiating in nature. She states the pain is constant since it begun. Patient states nothing exacerbates or makes the pain better. She states when the abdominal pain, diarrhea and chest pain settled in she became very anxious. She states she has history of anxiety. She states her anxiety level currently is very high. She states her PCP informed she cannot be on anxiety medicine as well as oxycodone for pain. She states she is currently on oxycodone for pain and does not have any antianxiety medications. She states she took her ' s Xanax. PCP Dr. Voss Review of Systems Review of Systems Constitutional: Denies fever or chills [] Eyes: Denies change in visual acuity, redness, or eye pain [] HENT: Denies nasal congestion or sore throat [] Respiratory: Denies cough or shortness of breath [] Cardiovascular: No additional information not addressed in HPI [] GI: Denies abdominal pain, nausea, vomiting, bloody stools or diarrhea [] : Denies dysuria or hematuria [] Musculoskeletal: Denies back pain or joint pain [] Integument: Denies rash or skin lesions [] Neurologic: Denies headache, focal weakness or sensory changes [] Pysch: anxiety All other systems were reviewed and found to be within normal limits, except as documented in this note. Current Medications Current Medications Current Medications Medications (Trade) Dose Ordered Sig/Joey Start Time Stop Time Status Last Admin Dose Admin Aspirin (Chaya Aspirin) 325 mg 1X ONCE 08/21/18 15:45 08/21/18 15:46 DC 08/21/18 16:06 325 MG Dicyclomine HCl (Bentyl) 20 mg 1X ONCE 08/21/18 15:45 08/21/18 15:46 DC 08/21/18 16:06 20 MG Hydromorphone HCl (Dilaudid) 1 mg 1X ONCE 08/21/18 18:30 08/21/18 18:31 DC 08/21/18 18:30 1 MG Morphine Sulfate (Morphine Sulfate) 5 mg 1X ONCE 08/21/18 15:45 08/21/18 15:46 DC 08/21/18 16:05 5 MG Multi-Ingredient Mouthwash/Gargle (Gi Cocktail) 20 ml 1X ONCE 08/21/18 15:45 08/21/18 15:46 DC 08/21/18 16:06 20 ML Ondansetron HCl (Zofran) 4 mg 1X ONCE 08/21/18 15:45 08/21/18 15:46 DC 08/21/18 16:05 4 MG Sodium Chloride 1,000 ml @ 1,000 mls/hr 1X ONCE 08/21/18 15:45 08/21/18 16:44 DC 08/21/18 16:04 1,000 MLS/HR Allergies Allergies Allergies Coded Allergies Type Severity Reaction Last Updated Verified methylprednisolone Allergy Intermediate Hives 08/08/17 Yes trimethoprim Adverse Reaction Intermediate 08/08/17 Yes sulfamethoxazole Adverse Reaction Mild 08/08/17 Yes Physical Exam Physical Exam Constitutional: Well developed, well nourished, no acute distress, non-toxic appearance. [] HENT: Normocephalic, atraumatic, bilateral external ears normal, oropharynx moist, no oral exudates, nose normal. [] Eyes: PERRLA, EOMI, conjunctiva normal, no discharge. [] Neck: Normal range of motion, no tenderness, supple, no stridor. [] Cardiovascular:Heart rate regular rhythm, no murmur [] Lungs & Thorax: Bilateral breath sounds clear to auscultation [] Abdomen: Bowel sounds normal, soft, diffuse tenderness to the left side of the abdomen, no masses, no pulsatile masses. [] Skin: Warm, dry, no erythema, no rash. [] Back: No tenderness, no CVA tenderness. [] Extremities: No tenderness, no cyanosis, no clubbing, ROM intact, no edema. [] Neurologic: Alert and oriented X 3, normal motor function, normal sensory function, no focal deficits noted. [] Psychologic: Appears depressed, anxious and tearful Current Patient Data Vital Signs Vital Signs Date Time Temp Pulse Resp B/P (MAP) Pulse Ox O2 Delivery O2 Flow Rate FiO2 08/21/18 18:30 16 08/21/18 16:58 121/83 (96) 100 08/21/18 16:16 84 Room Air 08/21/18 15:20 98.4 98.4 Lab Values Laboratory Tests Test 08/21/18 15:35 08/21/18 17:10 White Blood Count 10.3 x10^3/uL (4.0-11.0) Red Blood Count 5.02 x10^6/uL (3.50-5.40) Hemoglobin 14.1 g/dL (12.0-15.5) Hematocrit 41.4 % (36.0-47.0) Mean Corpuscular Volume 83 fL (79-100) Mean Corpuscular Hemoglobin 28 pg (25-35) Mean Corpuscular Hemoglobin Concent 34 g/dL (31-37) Red Cell Distribution Width 15.9 % (11.5-14.5) H Platelet Count 349 x10^3/uL (140-400) Neutrophils (%) (Auto) 69 % (31-73) Lymphocytes (%) (Auto) 25 % (24-48) Monocytes (%) (Auto) 5 % (0-9) Eosinophils (%) (Auto) 0 % (0-3) Basophils (%) (Auto) 1 % (0-3) Neutrophils # (Auto) 7.2 x10^3uL (1.8-7.7) Lymphocytes # (Auto) 2.6 x10^3/uL (1.0-4.8) Monocytes # (Auto) 0.5 x10^3/uL (0.0-1.1) Eosinophils # (Auto) 0.0 x10^3/uL (0.0-0.7) Basophils # (Auto) 0.1 x10^3/uL (0.0-0.2) Prothrombin Time 12.4 SEC (11.7-14.0) Prothrombin Time INR 1.0 (0.8-1.1) PTT 29 SEC (24-38) D-Dimer (Hina) < 0.27 ug/mlFEU Sodium Level 142 mmol/L (136-145) Potassium Level 3.9 mmol/L (3.5-5.1) Chloride Level 107 mmol/L (98-107) Carbon Dioxide Level 21 mmol/L (21-32) Anion Gap 14 (6-14) Blood Urea Nitrogen 13 mg/dL (7-20) Creatinine 0.8 mg/dL (0.6-1.0) Estimated GFR (Cockcroft-Gault) 81.2 BUN/Creatinine Ratio 16 (6-20) Glucose Level 100 mg/dL (70-99) H Calcium Level 10.2 mg/dL (8.5-10.1) H Magnesium Level 2.2 mg/dL (1.8-2.4) Total Bilirubin 0.5 mg/dL (0.2-1.0) Aspartate Amino Transferase (AST) 16 U/L (15-37) Alanine Aminotransferase (ALT) 20 U/L (14-59) Alkaline Phosphatase 58 U/L (46-116) Creatine Kinase 77 U/L (26-192) Creatine Kinase MB (Mass) < 0.5 ng/mL (0.0-3.6) Creatine Kinase MB Relative Index % (0-4) Troponin I Quantitative < 0.017 ng/mL (0.000-0.055) LX-Nbe-K-Type Natriuretic Peptide 162 pg/mL (0-124) H Total Protein 7.8 g/dL (6.4-8.2) Albumin 4.2 g/dL (3.4-5.0) Albumin/Globulin Ratio 1.2 (1.0-1.7) Lipase 140 U/L (73-393) Thyroid Stimulating Hormone (TSH) 0.516 uIU/mL (0.358-3.74) Urine Collection Type Unknown Urine Color Yellow Urine Clarity Cloudy Urine pH 8.0 Urine Specific [place] 1.020 Urine Protein Negative mg/dL (NEG-TRACE) Urine Glucose (UA) Negative mg/dL (NEG) Urine Ketones (Stick) Trace mg/dL (NEG) Urine Blood Negative (NEG) Urine Nitrite Negative (NEG) Urine Bilirubin Negative (NEG) Urine Urobilinogen Dipstick 0.2 mg/dL (0.2 mg/dL) Urine Leukocyte Esterase Negative (NEG) Urine RBC 0 /HPF (0-2) Urine WBC Rare /HPF (0-4) Urine Squamous Epithelial Cells Occ /LPF Urine Amorphous Sediment Present /HPF Urine Bacteria 0 /HPF (0-FEW) Urine Mucus Marked /LPF Laboratory Tests 08/21/18 15:35 Laboratory Tests 08/21/18 15:35 EKG EKG 15:[address] Flores sinus rhythm heart rate 76 no STEMI Radiology/Procedures Radiology/Procedures []PROCEDURE: CHEST PA & LATERAL EXAM: PA and Lateral Views of the Chest DATE: 08/21/2018 3:30 PM INDICATION: LEFT SIDED CHEST PAIN TODAY COMPARISON: No Prior FINDINGS: The heart is not enlarged. Mediastinal and hilar contours are normal. No focal parenchymal airspace opacity. No pleural effusion or pneumothorax. IMPRESSION: 1. No radiographic evidence for acute cardiopulmonary process. Electronically signed by: Jesus Canseco MD (08/21/2018 3:53 PM) [facility] DICTATED and SIGNED BY: JESUS CANSECO MD DATE: 08/21/18 1552 PROCEDURE: KUB KUB, supine Clinical Indication: Low abdominal pain Comparison: KUB, April 14, 2018. CT abdomen and pelvis with contrast August 08, 2018. Findings: No obvious opacity in the lung bases. Surgical clips left upper abdomen are stable. No dilated bowel loops are seen. There is suture material in the pelvis. No organomegaly. Bones appear stable. IMPRESSION: Nonobstructive bowel gas pattern. Electronically signed by: Neisha Dominguez MD (08/21/2018 6:38 PM) [facility] DICTATED and SIGNED BY: NEISHA DOMINGUEZ MD DATE: 08/21/18 1834 Course & Med Decision Making Course & Med Decision Making Pertinent Labs and Imaging studies reviewed. (See chart for details) This is a 38-year-old female patient presented to the ED today with chest pain that began this afternoon, has abdominal pain that began this morning, diarrhea which is chronic. Patient has history of chronic abdominal pain and currently chronic bedridden from multiple abdominal surgeries she's had in the past. She also has history of anxiety. Her anxiety levels are high currently due to the ongoing medical issues. Urine analysis is negative for infection, CBC, CMP, EKG, chest x-ray were negative for any acute findings. KUB was negative for any acute findings. Noted for constipation. Discussed results with the patient. She's had multiple abdominal surgeries. Unfortunately she's had 13 CT scans in the last 1 year for her abdomen read patient agreed she does not need another CT scan today. Patient's was present in the room while we discussed. He recommended patient to follow up with a counselor considering most of her symptoms are chronic and her anxiety levels are high. Patient agreed to go for counselling. Patient herself agreed to be discharged to home, she states she herself will contact her general surgeon, PCP and GI specialist and follow-up as soon as possible. She was instructed to return to the ED at any point symptoms worsen Dragon Disclaimer Dragon Disclaimer This electronic medical record was generated, in whole or in part, using a voice recognition dictation system. Departure Departure Impression: Primary Impression: Chronic abdominal pain Additional Impressions: Chest pain Anxiety Chronic diarrhea Constipation Disposition: HOME, SELF-CARE Condition: STABLE Referrals: MAYUR VOSS MD (PCP) Follow up with your primary care doctor, GI specialist and general surgeon as soon as possible. You can also consider counseling. Patient Instructions: Abdominal Pain, Anxiety and Panic Attacks, Diarrhea Additional Instructions: You were evaluated in the emergency room we recommend you follow up with the primary care doctor, resource conservationist and general surgeon as soon as possible. Please come back to the emergency room at any point symptoms worsen. You can also consider counseling. Scripts Oxycodone Hcl (OXYCODONE HCL) 5 Mg Capsule 5 MG PO PRN Q6HRS PRN for PAIN, #30 TAB 0 Refills Prov: ASHANTI ROSS APRN 08/21/18 Problem Qualifiers Additional Impressions: Chest pain Chest pain type: unspecified Qualified Codes: R07.9 - Chest pain, unspecified Constipation Constipation type: unspecified constipation type Qualified Codes: K59.00 - Constipation, unspecified ASHANTI ROSS APRN Aug 21, 2018 19:01
[2018-08-21 19:23] VITALS: BP 115/61
== END 2018-08-21 19:25 | disposition home or self-care (01) ==
LOC: ER 14:48
DX: K52.9 Noninfective gastroenteritis and colitis, unspecified (principal); G89.29 Other chronic pain; R07.89 Other chest pain; F41.9 Anxiety disorder, unspecified; K59.00 Constipation, unspecified; G43.909 Migraine, unspecified, not intractable, without status migrainosus; Z90.710 Acquired absence of both cervix and uterus; Z90.722 Acquired absence of ovaries, bilateral; Z90.81 Acquired absence of spleen; Z88.1 Allergy status to other antibiotic agents; Z88.2 Allergy status to sulfonamides; Z88.8 Allergy status to other drugs, medicaments and biological substances
CPT/HCPCS: 36415; 71046; 74018; 80053; 81001; 82553; 83690; 83735; 83880; 84443; 84484; 85025; 85379; 85610; 85730; 93005; 96361; 96374; 96375; 96376; 99284; J1170; J2270; J2405; J7030

== ENCOUNTER 2018-10-07 13:56 | Emergency (ER) | payer OTHER ==
[~2018-10-07] VITALS: Ht 167.6 cm; Wt 56.7 kg
[~2018-10-07 13:56] MED LIST changes: +OMEP20CA10 PO; -OMEP20CA9 PO; +OXYC5CAP PO; +TRAZ-118 PO; -TRAZ-85 PO
[2018-10-07] MEDS ORDERED: IV NORMAL SALINE 1000ML BAG 1,000 ML IV ONE (14:30)
[2018-10-07] MEDS ORDERED: ONDANSETRON PF 4 MG/2 ML VIAL. IV ONE (14:45)
[2018-10-07] MEDS ORDERED: HYDROmorphone 2 MG/ML VIAL IV ONE ×2 (14:45→16:00)
--- NOTE | 2018-10-07 15:14 | PHYS DOC ---
Past Medical History Past Medical History: Anemia, Anxiety, Constipation, Migraines, Other Additional Past Medical Histor: SBO, iron def anemia, PANCREATIC TUMOR, Past Surgical History: Hysterectomy, Oophorectomy, Splenectomy, Other Additional Past Surgical Histo: BOWEL RESECTION, transvaginal sling, PANCREATECTOMY, R OVARY/FALLOPIAN TUBE Alcohol Use: Occasionally Drug Use: None Adult General Chief Complaint Chief Complaint: ABDOMINAL PAIN HPI HPI Patient is a 38 year old female with extensive history of abdominal surgeries who presents to the ED today complaining of 9 out of 10 generalized abdominal pain that has been going on since the weekend began. Patient states she was seen by a GI doctor at [facility] sometime last week, she states she was prescribed GoLYTELY. She states she drank GoLYTELY over the weekend and has had multiple bowel movements. Patient states as a results she has developed increased abdominal pain. Patient denies any nausea vomiting. She states she feels her bowels of the pain. Patient is well known to this ED for abdominal pain. Review of Systems Review of Systems Constitutional: Denies fever or chills [] Eyes: Denies change in visual acuity, redness, or eye pain [] HENT: Denies nasal congestion or sore throat [] Respiratory: Denies cough or shortness of breath [] Cardiovascular: No additional information not addressed in HPI [] GI: Reports abdominal pain, denies nausea, vomiting, bloody stools or diarrhea [ ] : Denies dysuria or hematuria [] Musculoskeletal: Denies back pain or joint pain [] Integument: Denies rash or skin lesions [] Neurologic: Denies headache, focal weakness or sensory changes [] All other systems were reviewed and found to be within normal limits, except as documented in this note. Current Medications Current Medications Current Medications Medications (Trade) Dose Ordered Sig/Joey Start Time Stop Time Status Last Admin Dose Admin Hydromorphone HCl (Dilaudid) 2 mg 1X ONCE 10/07/18 16:00 10/07/18 16:02 DC 10/07/18 16:00 2 MG Ondansetron HCl (Zofran) 4 mg 1X ONCE 10/07/18 14:45 10/07/18 14:46 DC 10/07/18 14:46 4 MG Oxycodone/ Acetaminophen (Percocet 5/325) 1 tab 1X ONCE 10/07/18 16:45 10/07/18 16:46 DC 10/07/18 16:39 1 TAB Sodium Chloride 1,000 ml @ 1,000 mls/hr 1X ONCE 10/07/18 14:30 10/07/18 15:29 DC 10/07/18 14:46 1,000 MLS/HR Allergies Allergies Allergies Coded Allergies Type Severity Reaction Last Updated Verified methylprednisolone Allergy Intermediate Hives 08/08/17 Yes trimethoprim Adverse Reaction Intermediate 08/08/17 Yes sulfamethoxazole Adverse Reaction Mild 08/08/17 Yes Physical Exam Physical Exam Constitutional: Well developed, well nourished, no acute distress, non-toxic appearance. [] HENT: Normocephalic, atraumatic, bilateral external ears normal, oropharynx moist, no oral exudates, nose normal. [] Eyes: PERRLA, EOMI, conjunctiva normal, no discharge. [] Neck: Normal range of motion, no tenderness, supple, no stridor. [] Cardiovascular:Heart rate regular rhythm, no murmur [] Lungs & Thorax: Bilateral breath sounds clear to auscultation [] Abdomen: Flat abdomen. Old healed abdominal incisions. Bowel sounds normal, soft , diffuse tenderness throughout the abdomen remained, no masses, no pulsatile masses. [] Skin: Warm, dry, no erythema, no rash. [] Back: No tenderness, no CVA tenderness. [] Extremities: No tenderness, no cyanosis, no clubbing, ROM intact, no edema. [] Neurologic: Alert and oriented X 3, normal motor function, normal sensory function, no focal deficits noted. [] Psychologic: Tearful Current Patient Data Vital Signs Vital Signs Date Time Temp Pulse Resp B/P (MAP) Pulse Ox O2 Delivery O2 Flow Rate FiO2 10/07/18 16:39 18 99 Room Air 10/07/18 16:30 92 139/93 (108) 10/07/18 14:25 98.2 98.2 Lab Values Laboratory Tests Test 10/07/18 14:30 10/07/18 14:43 Urine Collection Type Unknown Urine Color Yellow Urine Clarity Clear Urine pH 6.5 Urine Specific [place] <=1.005 Urine Protein Negative mg/dL (NEG-TRACE) Urine Glucose (UA) Negative mg/dL (NEG) Urine Ketones (Stick) Negative mg/dL (NEG) Urine Blood Negative (NEG) Urine Nitrite Negative (NEG) Urine Bilirubin Negative (NEG) Urine Urobilinogen Dipstick 0.2 mg/dL (0.2 mg/dL) Urine Leukocyte Esterase Negative (NEG) Urine RBC 0 /HPF (0-2) Urine WBC 0 /HPF (0-4) Urine Squamous Epithelial Cells Few /LPF Urine Bacteria 0 /HPF (0-FEW) Urine Mucus Slight /LPF Urine Opiates Screen Pos (NEG) Urine Methadone Screen Neg (NEG) Urine Barbiturates Neg (NEG) Urine Phencyclidine Screen Neg (NEG) Urine Amphetamine/Methamphetamine Neg (NEG) Urine Benzodiazepines Screen Neg (NEG) Urine Cocaine Screen Neg (NEG) Urine Cannabinoids Screen Neg (NEG) Urine Ethyl Alcohol Neg (NEG) White Blood Count 13.9 x10^3/uL (4.0-11.0) H Red Blood Count 5.38 x10^6/uL (3.50-5.40) Hemoglobin 14.0 g/dL (12.0-15.5) Hematocrit 44.5 % (36.0-47.0) Mean Corpuscular Volume 83 fL (79-100) Mean Corpuscular Hemoglobin 26 pg (25-35) Mean Corpuscular Hemoglobin Concent 31 g/dL (31-37) Red Cell Distribution Width 16.0 % (11.5-14.5) H Platelet Count 329 x10^3/uL (140-400) Neutrophils (%) (Auto) 85 % (31-73) H Lymphocytes (%) (Auto) 12 % (24-48) L Monocytes (%) (Auto) 3 % (0-9) Eosinophils (%) (Auto) 0 % (0-3) Basophils (%) (Auto) 0 % (0-3) Neutrophils # (Auto) 11.8 x10^3uL (1.8-7.7) H Lymphocytes # (Auto) 1.7 x10^3/uL (1.0-4.8) Monocytes # (Auto) 0.4 x10^3/uL (0.0-1.1) Eosinophils # (Auto) 0.0 x10^3/uL (0.0-0.7) Basophils # (Auto) 0.1 x10^3/uL (0.0-0.2) Sodium Level 142 mmol/L (136-145) Potassium Level 4.0 mmol/L (3.5-5.1) Chloride Level 108 mmol/L (98-107) H Carbon Dioxide Level 23 mmol/L (21-32) Anion Gap 11 (6-14) Blood Urea Nitrogen 14 mg/dL (7-20) Creatinine 0.8 mg/dL (0.6-1.0) Estimated GFR (Cockcroft-Gault) 81.2 BUN/Creatinine Ratio 18 (6-20) Glucose Level 115 mg/dL (70-99) H Calcium Level 9.7 mg/dL (8.5-10.1) Total Bilirubin 0.5 mg/dL (0.2-1.0) Aspartate Amino Transferase (AST) 22 U/L (15-37) Alanine Aminotransferase (ALT) 22 U/L (14-59) Alkaline Phosphatase 53 U/L (46-116) Total Protein 6.9 g/dL (6.4-8.2) Albumin 3.5 g/dL (3.4-5.0) Albumin/Globulin Ratio 1.0 (1.0-1.7) Lipase 156 U/L (73-393) Ethyl Alcohol Level < 10 mg/dL (0-10) Laboratory Tests 10/07/18 14:43 Laboratory Tests 10/07/18 14:43 EKG EKG [] Radiology/Procedures Radiology/Procedures [] Course & Med Decision Making Course & Med Decision Making Pertinent Labs and Imaging studies reviewed. (See chart for details) This is a 38-year-old female patient with extensive history of abdominal pain and surgeries who presents to the ED today complaining of chronic abdominal pain , patient is well known to this ED for chronic abdominal pain. CBC with a WBC of 13.9. CMP no acute findings. Urine analysis is negative for infection. Patient was given 3 mg of Dilaudid. She was asking for prescription for oxycodone 10 mg for home use.[facility] shows she filled a prescription of oxycodone 10 mg 180 tablets 30 day supply on September 27, 2018. Informed patient i will not give her any narcotic prescription today. She states the GI doctor she saw that prescribed RadhaESHA had told her that she will no longer be her patient if she takes any narcotics. Patient is very emotional about this. She states she's been on pain medications for along time and would like something to take at home pain. She states she is not able to see her own doctor who normally prescribes her pain medicine until Sunday. Informed patient she can call the doctor today or tomorrow and see if they can see her sooner but I will not give her any prescription narcotic pain medicine. Informed her she filled 180 tablets 10 days ago and should have enough pain medicine for 30 days. She states she "ditched" all her pain pill last week when she as told by the GI doctor she should not take any pain medicine. Informed her she needs to call her own regular doctor who prescribes all her pain medicines and tell him/her she ditched her medicines and they will decide if to write her anything for pain but i will not write her any narcotics. Reminded her the last time i wrote her rx for Oxycodone pharmacy called me stating she had fille rx of Oxycodone recently and should not be out. Patient continued to cry. She was d/c to home with no pain medicines. Dragon Disclaimer Dragon Disclaimer This electronic medical record was generated, in whole or in part, using a voice recognition dictation system. Departure Departure Impression: Primary Impression: Chronic abdominal pain Disposition: HOME, SELF-CARE Condition: STABLE Referrals: MAYUR VOSS MD (PCP) follow up with your doctor tomorrow Patient Instructions: Abdominal Pain (Nonspecific) Additional Instructions: You were evaluated in the emergency room for chronic abdominal pain. Please follow up with your doctor as soon as you can. ASHANTI ROSS APRN Oct 07, 2018 15:14
[2018-10-07 15:17] LABS: BILIRUBIN,URINE NEGATIVE (NEG); CLARITY,URINE CLEAR; COLOR,URINE YELLOW; NITRITE,URINE NEGATIVE (NEG); PH,URINE 6.5; PROTEIN,URINE NEGATIVE (NEG-TRACE); UROBILINOGEN,URINE 0.2 mg/dL (0.2 mg/dL)
[2018-10-07 15:19] LABS: BASO # 0.1 x10^3/uL (0.0-0.2); BASO % 0 % (0-3); EOS % 0 % (0-3); HEMATOCRIT 44.5 % (36.0-47.0); LYMPH # 1.7 x10^3/uL (1.0-4.8); LYMPH % 12 % (24-48); MEAN CORPUSCULAR HEMOGLOBIN 26 pg (25-35); MEAN CORPUSCULAR HGB CONC 31 g/dL (31-37); MEAN CORPUSCULAR VOLUME 83 fL (79-100); MONO # 0.4 x10^3/uL (0.0-1.1); MONO % 3 % (0-9); NEUT # 11.8 x10^3uL (1.8-7.7); NEUT % 85 % (31-73); PLATELET COUNT 329 x10^3/uL (140-400); RED BLOOD COUNT 5.38 x10^6/uL (3.50-5.40); WHITE BLOOD COUNT 13.9 x10^3/uL (4.0-11.0)
[2018-10-07 15:20] LABS: CALCIUM 9.7 mg/dL (8.5-10.1); CREATININE 0.8 mg/dL (0.6-1.0); GFR 81.2
[2018-10-07 15:25] LABS: ALBUMIN 3.5 g/dL (3.4-5.0); TOTAL BILIRUBIN 0.5 mg/dL (0.2-1.0); TOTAL PROTEIN 6.9 g/dL (6.4-8.2)
[2018-10-07 15:26] LABS: BARBITURATES NEG (NEG); BENZODIAZEPINES NEG (NEG); CANNABINOIDS NEG (NEG); COCAINE NEG (NEG); METHADONE NEG (NEG); OPIATES POS (NEG); PHENCYCLIDINE NEG (NEG)
[2018-10-07 15:27] LABS: AMPHETAMINE/METHAMPHETAMINE NEG (NEG)
[2018-10-07 15:41] LABS: SQUAMOUS EPITHELIAL CELL,UR FEW /LPF
[2018-10-07 15:42] LABS: BACTERIA,URINE 0 /HPF (0-FEW); RBC,URINE 0 /HPF (0-2); WBC,URINE 0 /HPF (0-4)
[2018-10-07 16:30] VITALS: BP 139/93
[2018-10-07] MEDS ORDERED: oxyCODONE/APAP 5/325 1 TAB TABLET PO ONE (16:45)
== END 2018-10-07 16:46 | disposition home or self-care (01) ==
LOC: ER 13:56
DX: G89.29 Other chronic pain (principal); R10.84 Generalized abdominal pain; F41.9 Anxiety disorder, unspecified; G43.909 Migraine, unspecified, not intractable, without status migrainosus; Z86.2 Personal history of diseases of the blood and blood-forming organs and certain disorders involving the immune mechanism; Z90.710 Acquired absence of both cervix and uterus; Z90.81 Acquired absence of spleen; Z90.721 Acquired absence of ovaries, unilateral; Z88.1 Allergy status to other antibiotic agents; Z88.8 Allergy status to other drugs, medicaments and biological substances; Z88.2 Allergy status to sulfonamides
CPT/HCPCS: 36415; 80053; 80307; 81001; 83690; 85025; 96374; 96375; 96376; 99284; G0480; J1170; J2405; J7030; 99283-25

== ENCOUNTER 2018-10-08 12:51 | Emergency (ER) | payer OTHER ==
[~2018-10-08] VITALS: Ht 165.1 cm; Wt 56.7 kg
[2018-10-08 13:09] VITALS: BP 136/90
[2018-10-08] MEDS ORDERED: PROCHLORPERAZINE 10 MG/2 ML VIAL. IV ONE (13:15)
[2018-10-08] MEDS ORDERED: HYOSCYAMINE 0.125 MG TAB.RAPDIS PO ONE (13:15)
[2018-10-08] MEDS ORDERED: KETOROLAC 15 MG/ML VIAL. IV ONE (13:15)
[2018-10-08] MEDS ORDERED: IV RINGERS,LACTATED 1000ML 1,000 ML IV SCH (13:30)
--- NOTE | 2018-10-08 13:30 | PHYS DOC ---
Past Medical History Past Medical History: Anemia, Anxiety, Constipation, Migraines, Other Additional Past Medical Histor: SBO, iron def anemia, PANCREATIC TUMOR, Past Surgical History: Hysterectomy Additional Past Surgical Histo: BOWEL RESECTION, transvaginal sling, PANCREATECTOMY, R OVARY/FALLOPIAN TUBE Alcohol Use: Occasionally Drug Use: None Adult General Chief Complaint Chief Complaint: ABDOMINAL PAIN HPI HPI Patient is a 38 year old female who presents with abdominal pain and cramping. This started approximately 36 hours ago for this induration. She does have a on standing history of abdominal pain issues with multiple previous surgeries. She notes that she was started on GoLYTELY over the weekend for a "bowel reset" along with being placed on metronidazole. She has chronic constipation and diarrheal issues. There has been no vomiting. There is yellow, mucousy, stringy diarrhea. No blood in the stool. Reports a diffuse crampy abdominal pain.[] Review of Systems Review of Systems Constitutional: Denies fever or chills [] Eyes: Denies change in visual acuity, redness, or eye pain [] HENT: Denies nasal congestion or sore throat [] Respiratory: Denies cough or shortness of breath [] Cardiovascular: No additional information not addressed in HPI [] GI: Denies abdominal pain, nausea, vomiting, bloody stools or diarrhea [] : Denies dysuria or hematuria [] Musculoskeletal: Denies back pain or joint pain [] Integument: Denies rash or skin lesions [] Neurologic: Denies headache, focal weakness or sensory changes [] Endocrine: Denies polyuria or polydipsia [] All other systems were reviewed and found to be within normal limits, except as documented in this note. Current Medications Current Medications Current Medications Medications (Trade) Dose Ordered Sig/Joey Start Time Stop Time Status Last Admin Dose Admin Diphenoxylate HCl/ Atropine (Lomotil) 2 tab 1X ONCE 10/08/18 13:45 10/08/18 13:46 DC 10/08/18 14:01 2 TAB Hyoscyamine (Anaspaz) 0.125 mg ONCE ONCE 10/08/18 13:15 10/08/18 13:24 DC 10/08/18 13:41 0.125 MG Ketorolac Tromethamine (Toradol 15mg Vial) 15 mg 1X ONCE 10/08/18 13:15 10/08/18 13:24 DC 10/08/18 13:41 15 MG Prochlorperazine Edisylate (Compazine) 10 mg 1X ONCE 10/08/18 13:15 10/08/18 13:24 DC 10/08/18 13:41 10 MG Ringer's Solution 1,000 ml @ 1,000 mls/hr Q1H 10/08/18 13:30 10/08/18 14:29 DC 10/08/18 13:30 1,000 MLS/HR Allergies Allergies Allergies Coded Allergies Type Severity Reaction Last Updated Verified methylprednisolone Allergy Intermediate Hives 08/08/17 Yes trimethoprim Adverse Reaction Intermediate 08/08/17 Yes sulfamethoxazole Adverse Reaction Mild 08/08/17 Yes Physical Exam Physical Exam Constitutional: Well developed, well nourished, no acute distress, non-toxic appearance. [] HENT: Normocephalic, atraumatic, bilateral external ears normal, oropharynx moist, no oral exudates, nose normal. [] Eyes: PERRLA, EOMI, conjunctiva normal, no discharge. [] Neck: Normal range of motion, no tenderness, supple, no stridor. [] Cardiovascular:Heart rate regular rhythm, no murmur [] Lungs & Thorax: Bilateral breath sounds clear to auscultation [] Abdomen: Bowel sounds normal, soft, no tenderness, no masses, no pulsatile masses. [] Skin: Warm, dry, no erythema, no rash. [] Back: No tenderness, no CVA tenderness. [] Extremities: No tenderness, no cyanosis, no clubbing, ROM intact, no edema. [] Neurologic: Alert and oriented X 3, normal motor function, normal sensory function, no focal deficits noted. [] Psychologic: Affect normal, judgement normal, mood normal. [] Current Patient Data Vital Signs Vital Signs Date Time Temp Pulse Resp B/P (MAP) Pulse Ox O2 Delivery O2 Flow Rate FiO2 10/08/18 13:09 97.8 84 16 136/90 (105) 100 Room Air 97.8 EKG EKG [] Radiology/Procedures Radiology/Procedures [] Course & Med Decision Making Course & Med Decision Making Pertinent Labs and Imaging studies reviewed. (See chart for details) ED course: Patient arrived, was placed in bed, in tolerated exam well. She was given IV fluids, antispasmodics, antiemetics, and pain medicine. She was additionally given medicine to help with the increased motility from the GoLYTELY. She was able to provide a stool sample to evaluate for C. difficile. At approximately 1430 she elected to sign out AGAINST MEDICAL ADVICE. She was warned of the risks to include or permanent disability. She appears able to make an informed decision and was able to state the risks in her own words. Given her relatively frequent visits to the emergency department including a visit yesterday, he elected to review her records KTRACS: This reveals multiple narcotic prescriptions within the past several months including 180 oxycodone 10 mg tablets prescribed on September 27 that is intended to be a 30 day supply and 15 oxycodone 10 mg tablets written on September 25, 2018 by a different prescriber, along with another 150 oxycodone 10 mg tablets prescribed on 2018.[] Dragon Disclaimer Dragon Disclaimer This electronic medical record was generated, in whole or in part, using a voice recognition dictation system. Departure Departure Impression: Primary Impression: Abdominal pain Additional Impression: Chronic diarrhea Disposition: 07 AGAINST MEDICAL ADVICE Condition: IMPROVED Referrals: MAYUR VOSS MD (PCP) Problem Qualifiers Primary Impression: Abdominal pain Abdominal location: generalized Qualified Codes: R10.84 - Generalized abdominal pain ELI CAVAZOS DO Oct 08, 2018 13:30
[2018-10-08] MEDS ORDERED: DIPHENOXYLATE/ATROPINE TABLET. PO ONE (13:45)
[2018-10-08 14:33] LABS: BILIRUBIN,URINE NEGATIVE (NEG); CLARITY,URINE CLEAR; COLOR,URINE YELLOW; NITRITE,URINE NEGATIVE (NEG); PH,URINE 5.5; PROTEIN,URINE NEGATIVE (NEG-TRACE); UROBILINOGEN,URINE 0.2 mg/dL (0.2 mg/dL)
[2018-10-08 14:42] LABS: BACTERIA,URINE 0 /HPF (0-FEW); RBC,URINE 0 /HPF (0-2); SQUAMOUS EPITHELIAL CELL,UR OCC /LPF
== END 2018-10-08 13:50 | disposition left against medical advice (07) ==
LOC: ER 12:51
DX: K52.9 Noninfective gastroenteritis and colitis, unspecified (principal); F41.9 Anxiety disorder, unspecified; G43.909 Migraine, unspecified, not intractable, without status migrainosus; Z86.2 Personal history of diseases of the blood and blood-forming organs and certain disorders involving the immune mechanism; Z90.710 Acquired absence of both cervix and uterus; Z88.1 Allergy status to other antibiotic agents; Z88.2 Allergy status to sulfonamides; Z88.8 Allergy status to other drugs, medicaments and biological substances
CPT/HCPCS: 81001; 87045; 96361; 96374; 96375; 99283; J0780; J1885; 36415; J7120

== ENCOUNTER → 2019-01-08 | Outpatient (CLI) | payer OTHER ==
[~2019-01-08] MED LIST changes: +IOHEXOL 240 MG/ML 50ML VIAL. PO ONE; +IOHEXOL 300 MG/ML 100ML VIAL. IV ONE
--- NOTE | 2019-01-08 13:55 | KCIC ---
EXAM: CT Abdomen and Pelvis with IV contrast CLINICAL HISTORY: Ventral hernia. History of splenectomy, partial hysterectomy, appendectomy. History of pancreatic tumor. COMPARISON: CT 08/08/2018, 04/15/2018, 03/20/2018, 01/14/2016 TECHNIQUE: Helical CT of the abdomen and pelvis was performed following the administration of intravenous contrast. Axial, coronal and sagittal reformatted images were generated. PQRS compliance statement - One or more of the following individualized dose reduction techniques were utilized for this study: 1. Automated exposure control 2. Adjustment of the mA and/or kV according to patient size 3. Use of iterative reconstruction technique FINDINGS: Lower chest: Lung bases are clear. Abdomen and Pelvis: A 4 mm peripheral hypodense right hepatic lobe lesion without definitively seen on prior CT, but too small to characterize. Gallbladder is normal. No biliary ductal dilatation. Changes of distal pancreatectomy and splenectomy are seen. Symmetric nephrograms. No focal renal lesion. No hydronephrosis. No hydroureter. The bladder is grossly unremarkable. Moderate colonic stool content is seen. Changes of prior bowel surgery are seen. There is resultant distention of the right colon/small bowel at the expected ileocolonics anastomosis, grossly stable. Otherwise, no small or large bowel dilatation. No abdominal or pelvic ascites. Uterus and adnexa are grossly unremarkable. No abdominal or pelvic lymphadenopathy. Ventral abdominal hernia is seen containing a segment of colon. There is a widemouth at the base of this hernia and no associated fluid collection or wall thickening is seen. Bones: Osseous structures are grossly unremarkable. Degenerative changes of the spine are seen. IMPRESSION: 1. Changes of distal pancreatectomy and splenectomy are again seen, grossly stable in appearance. 2. No definite abdominal or pelvic lymphadenopathy. 3. Prominence/dilation at the ileocolonic junction in the right lower quadrant is again seen, essentially stable. Electronically signed by: Jesus Renner MD (01/08/2019 1:53 PM) [id number]
== END | disposition home or self-care (01) ==
LOC: KCIC CT 11:47
PROVIDERS: ATTEND Surgery
DX: K43.9 Ventral hernia without obstruction or gangrene (principal); K63.89 Other specified diseases of intestine; Z90.81 Acquired absence of spleen; Z90.710 Acquired absence of both cervix and uterus; Z90.49 Acquired absence of other specified parts of digestive tract
CPT/HCPCS: 74177; Q9967

== ENCOUNTER 2019-10-30 08:24 | Emergency (ER) | payer OTHER ==
[~2019-10-30] VITALS: Ht 165.1 cm; Wt 56.8 kg
[~2019-10-30 08:24] MED LIST changes: +AMLO5TAB10 PO; +BUPR1FIL SL; +BUSP10TA PO; -IOHEXOL 240 MG/ML 50ML VIAL. PO ONE; -IOHEXOL 300 MG/ML 100ML VIAL. IV ONE; +LEXAPRO20 MG PO; +LIDO700A21 TP; -LIDO700A39 TP; +LORA-434 PO; -MAGN400T3 PO; +MAGN400T5 PO; -OMEP20CA10 PO; +OMEP20CA16 PO; +TIZA4TAB2 PO; +TOPI50TA38 PO; +ZOLP10TA PO
[2019-10-30] MEDS ORDERED: IV NORMAL SALINE 1000ML BAG 1,000 ML IV SCH (08:52)
[2019-10-30] MEDS ORDERED: ONDANSETRON PF 4 MG/2 ML VIAL. IVP ONE (09:00)
[2019-10-30] MEDS ORDERED: MORPHINE SULFATE 4 MG/ML VIAL. IV ONE ×2 (09:00→13:00)
[2019-10-30 09:16] LABS: BILIRUBIN,URINE SMALL (NEG); CLARITY,URINE CLEAR; COLOR,URINE YELLOW; NITRITE,URINE NEGATIVE (NEG); PROTEIN,URINE NEGATIVE (NEG-TRACE); UROBILINOGEN,URINE 0.2 mg/dL (0.2 mg/dL)
[2019-10-30 09:34] LABS: CREATININE 1.1 mg/dL (0.6-1.0); GFR 55.9; POTASSIUM 4.2 mmol/L (3.5-5.1)
[2019-10-30 09:40] LABS: ALBUMIN 3.6 g/dL (3.4-5.0); ALBUMIN/GLOBULIN RATIO 1.4 (1.0-1.7); TOTAL BILIRUBIN 0.2 mg/dL (0.2-1.0); TOTAL PROTEIN 6.2 g/dL (6.4-8.2)
[2019-10-30 09:41] LABS: BACTERIA,URINE 0 /HPF (0-FEW); HYALINE CASTS, URINE MODERATE /HPF; SQUAMOUS EPITHELIAL CELL,UR MOD /LPF
[2019-10-30] MEDS ORDERED: KETOROLAC 30 MG/ML VIAL. IVP ONE (10:15)
[2019-10-30] MEDS ORDERED: IV NORMAL SALINE 1000ML BAG 1,000 ML IV ONE (10:30)
[2019-10-30] MEDS ORDERED: IOHEXOL 300 MG/ML 100ML VIAL. IV ONE (10:30)
[2019-10-30] MEDS ORDERED: CONTRAST GIVEN. MC PRN (10:30)
--- NOTE | 2019-10-30 10:58 | PHYS DOC ---
Past Medical History Past Medical History: Anemia, Anxiety, Constipation, Migraines, Other Additional Past Medical Histor: SBO, iron def anemia, PANCREATIC TUMOR, Past Surgical History: Hysterectomy Additional Past Surgical Histo: BOWEL RESECTION, transvaginal sling, PANCREATECTOMY, R OVARY/FALLOPIAN TUBE Smoking Status: Former Smoker Alcohol Use: Occasionally Drug Use: None Adult General Chief Complaint Chief Complaint: ABDOMINAL PAIN HPI HPI Patient is a 39 year old female who presented to ER today for evaluation of lower abdominal pain, associated with nausea vomiting for couple days. Patient said she could not keep them down. Patient has a history of chronic abdominal pain, narcotic dependent. Patient has been evaluated multiple times in the past for recurrent abdominal pain, she had extensive abdominal operation. Patient denies any fever. Patient was given 100 mcg of fentanyl on route by EMS. Review of Systems Review of Systems Constitutional: Denies fever or chills [] Eyes: Denies change in visual acuity, redness, or eye pain [] HENT: Denies nasal congestion or sore throat [] Respiratory: Denies cough or shortness of breath [] Cardiovascular: No additional information not addressed in HPI [] GI: Positive for abdominal pain, nausea, vomiting, NO bloody stools or diarrhea [] : Denies dysuria or hematuria [] Musculoskeletal: Denies back pain or joint pain [] Integument: Denies rash or skin lesions [] Neurologic: Denies headache, focal weakness or sensory changes [] Endocrine: Denies polyuria or polydipsia [] All other systems were reviewed and found to be within normal limits, except as documented in this note. Current Medications Current Medications Current Medications Medications (Trade) Dose Ordered Sig/Joey Start Time Stop Time Status Last Admin Dose Admin Fentanyl Citrate (Fentanyl 2ml Vial) 50 mcg 1X ONCE 10/30/19 12:00 10/30/19 12:01 DC 10/30/19 11:49 50 MCG Info (CONTRAST GIVEN -- Rx MONITORING) 1 each PRN DAILY PRN 10/30/19 10:30 11/01/19 10:29 Iohexol (Omnipaque 300 Mg/ml) 60 ml 1X ONCE 10/30/19 10:30 10/30/19 10:31 DC 10/30/19 10:30 60 ML Ketorolac Tromethamine (Toradol 30mg Vial) 30 mg 1X ONCE 10/30/19 10:15 10/30/19 10:16 DC 10/30/19 10:18 30 MG Morphine Sulfate (Morphine Sulfate) 4 mg 1X ONCE 10/30/19 13:00 10/30/19 13:01 DC 10/30/19 13:17 4 MG Ondansetron HCl (Zofran) 4 mg 1X ONCE 10/30/19 09:00 10/30/19 09:01 DC 10/30/19 09:13 4 MG Sodium Chloride 1,000 ml @ 1,000 mls/hr 1X ONCE 10/30/19 10:30 10/30/19 11:29 DC 10/30/19 10:56 1,000 MLS/HR Allergies Allergies Allergies Coded Allergies Type Severity Reaction Last Updated Verified methylprednisolone Allergy Intermediate Hives 02/13/19 Yes trimethoprim Adverse Reaction Intermediate 02/13/19 Yes sulfamethoxazole Adverse Reaction Mild 02/13/19 Yes Physical Exam Physical Exam Constitutional: Well developed, well nourished, no acute distress, non-toxic appearance. [] HENT: Normocephalic, atraumatic, bilateral external ears normal, oropharynx moist, no oral exudates, nose normal. [] Eyes: PERRLA, EOMI, conjunctiva normal, no discharge. [] Neck: Normal range of motion, no tenderness, supple, no stridor. [] Cardiovascular:Heart rate regular rhythm, no murmur [] Lungs & Thorax: Bilateral breath sounds clear to auscultation [] Abdomen: Bowel sounds normal, soft, There is tenderness to palpation in lower abdominal area, no masses, no pulsatile masses. [] Skin: Warm, dry, no erythema, no rash. [] Back: No tenderness, no CVA tenderness. [] Extremities: No tenderness, no cyanosis, no clubbing, ROM intact, no edema. [] Neurologic: Alert and oriented X 3, normal motor function, normal sensory function, no focal deficits noted. [] Psychologic: Affect normal, judgement normal, mood normal. [] Current Patient Data Vital Signs Vital Signs Date Time Temp Pulse Resp B/P (MAP) Pulse Ox O2 Delivery O2 Flow Rate FiO2 10/30/19 13:17 16 99 Room Air 10/30/19 08:36 97.8 89 99/65 (76) 97.8 Lab Values Laboratory Tests Test 3/12/20 08:58 10/30/19 08:59 10/30/19 09:14 10/30/19 10:47 Urine Collection Type Unknown Urine Color Yellow Urine Clarity Clear Urine pH 5.0 (<5.0-8.0) Urine Specific [place] >=1.030 (1.000-1.030) Urine Protein Negative mg/dL (NEG-TRACE) Urine Glucose (UA) Negative mg/dL (NEG) Urine Ketones (Stick) Negative mg/dL (NEG) Urine Blood Negative (NEG) Urine Nitrite Negative (NEG) Urine Bilirubin Small (NEG) Urine Urobilinogen Dipstick 0.2 mg/dL (0.2 mg/dL) Urine Leukocyte Esterase Negative (NEG) Urine RBC 3-5 /HPF (0-2) Urine WBC 1-4 /HPF (0-4) Urine Squamous Epithelial Cells Mod /LPF Urine Bacteria 0 /HPF (0-FEW) Urine Hyaline Casts Moderate /HPF Urine Mucus Mod /LPF POC Urine HCG, Qualitative Hcg negative (Negative) Sodium Level 145 mmol/L (136-145) Potassium Level 4.2 mmol/L (3.5-5.1) Chloride Level 109 mmol/L (98-107) H Carbon Dioxide Level 24 mmol/L (21-32) Anion Gap 12 (6-14) Blood Urea Nitrogen 18 mg/dL (7-20) Creatinine 1.1 mg/dL (0.6-1.0) H Estimated GFR (Cockcroft-Gault) 55.9 BUN/Creatinine Ratio 16 (6-20) Glucose Level 73 mg/dL (70-99) Calcium Level 9.0 mg/dL (8.5-10.1) Magnesium Level 2.2 mg/dL (1.8-2.4) Total Bilirubin 0.2 mg/dL (0.2-1.0) Aspartate Amino Transferase (AST) 13 U/L (15-37) L Alanine Aminotransferase (ALT) 15 U/L (14-59) Alkaline Phosphatase 41 U/L (46-116) L Total Protein 6.2 g/dL (6.4-8.2) L Albumin 3.6 g/dL (3.4-5.0) Albumin/Globulin Ratio 1.4 (1.0-1.7) Lipase 57 U/L (73-393) L White Blood Count 10.4 x10^3/uL (4.0-11.0) Red Blood Count 4.66 x10^6/uL (3.50-5.40) Hemoglobin 13.6 g/dL (12.0-15.5) Hematocrit 41.0 % (36.0-47.0) Mean Corpuscular Volume 88 fL (79-100) Mean Corpuscular Hemoglobin 29 pg (25-35) Mean Corpuscular Hemoglobin Concent 33 g/dL (31-37) Red Cell Distribution Width 14.3 % (11.5-14.5) Platelet Count 245 x10^3/uL (140-400) Neutrophils (%) (Auto) 65 % (31-73) Lymphocytes (%) (Auto) 28 % (24-48) Monocytes (%) (Auto) 6 % (0-9) Eosinophils (%) (Auto) 1 % (0-3) Basophils (%) (Auto) 1 % (0-3) Neutrophils # (Auto) 6.8 x10^3/uL (1.8-7.7) Lymphocytes # (Auto) 2.9 x10^3/uL (1.0-4.8) Monocytes # (Auto) 0.6 x10^3/uL (0.0-1.1) Eosinophils # (Auto) 0.1 x10^3/uL (0.0-0.7) Basophils # (Auto) 0.1 x10^3/uL (0.0-0.2) Prothrombin Time 12.5 SEC (11.7-14.0) Prothrombin Time INR 1.0 (0.8-1.1) Activated Partial Thromboplast Time 19 SEC (24-38) L Laboratory Tests 10/30/19 10:47 Laboratory Tests 10/30/19 09:14 EKG EKG [] Radiology/Procedures Radiology/Procedures [][facility] [address] [id number] IMAGING REPORT Signed PATIENT: DAR EDUARDO ACCOUNT: [id number] : 1980 LOCATION: ER AGE: 39 SEX: F EXAM STATUS: REG ER ORD. PHYSICIAN: AGATA MCGEE DO REASON: LOWER ABDOMINAL PAIN, NAUSEA, VOMITING PROCEDURE: CT ABD PELV W/ IV CONTRST ONLY CT ABD PELV W/ IV CONTRST ONLY History: Lower abdominal pain. Nausea vomiting. Technique: After the administration of intravenous contrast, CT imaging was performed of the abdomen and pelvis. Multiplanar images are reviewed. Exposure: One or more of the following individualized dose reduction techniques were utilized for this examination: 1. Automated exposure control 2. Adjustment of the mA and/or kV according to patient size 3. Use of iterative reconstruction technique. Comparison: January 08, 2019 Findings: Lower chest: Right middle lobe nodular opacity measures 0.8 cm with adjacent groundglass opacity just above the diaphragm. No pleural effusion. Abdomen and pelvis: Postoperative changes distal pancreatectomy and splenectomy. Normal appearance of the pancreatic head and neck. No gallbladder wall thickening or cholelithiasis on CT. The kidneys and adrenal glands are unremarkable. Mildly dilated common bile duct measures up to 8 mm, slightly increased compared to prior. The distal common bile duct tapers normally. Mild intrahepatic biliary ductal dilatation. Prior bowel resections. Colonic ileal anastomosis. Appendix not well identified. Dilated featureless bowel within the region of the small bowel anastomosis, decreased size compared to prior. No pathologic lymphadenopathy. No ascites. Anterior abdominal wall hernia repair. Decompressed urinary bladder. Bones: No pathologic osseous lesions. Impression: 1. Mild common bile duct and intrahepatic biliary ductal dilatation, slightly increased compared to prior. Recommend correlation with biliary lab values. 2. Postoperative changes distal pancreatectomy and splenectomy. 3. Postoperative changes small bowel resections with ileocolonic anastomosis and prominent dilatation, decreased compared to prior. 4. Right middle lobe nodular opacity adjacent groundglass opacity, may represent or focal atelectasis or infectious/inflammatory nodule. Recommend short-term follow-up to ensure resolution. Electronically signed by: En Joya DO (10/30/2019 11:54 AM) [id number] DICTATED and SIGNED BY: EN JOYA DO DATE: 10/30/19 1154 [facility] [address] [id number] IMAGING REPORT Signed PATIENT: DAR EDUARDO ACCOUNT: [id number] : 1980 LOCATION: ER AGE: 39 SEX: F EXAM STATUS: REG ER ORD. PHYSICIAN: AGATA MCGEE DO REASON: lower abdominal pain /left pelvic pain/hysterectomy/rt ovary removed PROCEDURE: PELVIS W/TV Examination: PELVIS W/TV History: Left-sided pelvic pain Comparison/Correlation: 10/30/2019 CT abdomen pelvis with contrast Findings: Transabdominal and transvaginal pelvic ultrasound exam was performed. Transvaginal technique was utilized with persistent adnexal structures. Hysterectomy noted. Right nephrectomy noted. Left ovary is not identified. Small amount of pelvic free fluid is present. At the superior aspect of the uterine cervix, there is a hypoechoic calcific nodule with flow within the endometrium at 1.5 cm x 1.2 cm x 1.9 cm. It is well-circumscribed. Impression: Minimal pelvic free fluid which may be pathologic. Left ovary is not visualized. No suspicious adnexal region mass. Small mass lesion with internal echogenic foci involving the uterine cervix. It is of indeterminate significance. Definite corresponding finding is not evident on CT exam performed earlier on the same day. Interval follow-up ultrasound is recommended to assess stability. Electronically signed by: Micha Birmingham MD (10/30/2019 1:17 PM) [id number] DICTATED and SIGNED BY: MICHA BIRMINGHAM MD DATE: 10/30/19 131 Course & Med Decision Making Course & Med Decision Making Pertinent Labs and Imaging studies reviewed. (See chart for details) [] Dragon Disclaimer Dragon Disclaimer This electronic medical record was generated, in whole or in part, using a voice recognition dictation system. Departure Departure Impression: Primary Impression: Abdominal pain Disposition: 01 HOME, SELF-CARE Condition: IMPROVED Referrals: MAYUR VOSS MD (PCP) PLEASE FOLLOW UP WITH YOUR PCP NEXT WEEK Patient Instructions: Abdominal Pain Additional Instructions: Thank you for visiting our Emergency Department. We appreciate you trusting us with your care. If any additional problems come up don't hesitate to return to visit us. Please follow up with your primary care provider so they can plan additional care if needed and know about the problem that you had. If symptoms worsen come back to the Emergency Department. Any concerning symptoms that start such as chest pain, shortness of air, weakness or numbness on one side of the body, running high fevers or any other concerning symptoms return to the ER. AGATA MCGEE DO Oct 30, 2019 10:58
[2019-10-30 11:16] LABS: PROTHROMBIN TIME PATIENT 12.5 SEC (11.7-14.0)
[2019-10-30 11:18] LABS: BASO # 0.1 x10^3/uL (0.0-0.2); BASO % 1 % (0-3); EOS # 0.1 x10^3/uL (0.0-0.7); EOS % 1 % (0-3); HEMOGLOBIN 13.6 g/dL (12.0-15.5); LYMPH # 2.9 x10^3/uL (1.0-4.8); LYMPH % 28 % (24-48); MEAN CORPUSCULAR HEMOGLOBIN 29 pg (25-35); MEAN CORPUSCULAR HGB CONC 33 g/dL (31-37); MEAN CORPUSCULAR VOLUME 88 fL (79-100); MONO # 0.6 x10^3/uL (0.0-1.1); MONO % 6 % (0-9); NEUT # 6.8 x10^3/uL (1.8-7.7); NEUT % 65 % (31-73); PLATELET COUNT 245 x10^3/uL (140-400); RED BLOOD COUNT 4.66 x10^6/uL (3.50-5.40); RED CELL DISTRIBUTION WIDTH 14.3 % (11.5-14.5); WHITE BLOOD COUNT 10.4 x10^3/uL (4.0-11.0)
--- NOTE | 2019-10-30 11:56 | RAD ---
CT ABD PELV W/ IV CONTRST ONLY History: Lower abdominal pain. Nausea vomiting. Technique: After the administration of intravenous contrast, CT imaging was performed of the abdomen and pelvis. Multiplanar images are reviewed. Exposure: One or more of the following individualized dose reduction techniques were utilized for this examination: 1. Automated exposure control 2. Adjustment of the mA and/or kV according to patient size 3. Use of iterative reconstruction technique. Comparison: January 08, 2019 Findings: Lower chest: Right middle lobe nodular opacity measures 0.8 cm with adjacent groundglass opacity just above the diaphragm. No pleural effusion. Abdomen and pelvis: Postoperative changes distal pancreatectomy and splenectomy. Normal appearance of the pancreatic head and neck. No gallbladder wall thickening or cholelithiasis on CT. The kidneys and adrenal glands are unremarkable. Mildly dilated common bile duct measures up to 8 mm, slightly increased compared to prior. The distal common bile duct tapers normally. Mild intrahepatic biliary ductal dilatation. Prior bowel resections. Colonic ileal anastomosis. Appendix not well identified. Dilated featureless bowel within the region of the small bowel anastomosis, decreased size compared to prior. No pathologic lymphadenopathy. No ascites. Anterior abdominal wall hernia repair. Decompressed urinary bladder. Bones: No pathologic osseous lesions. Impression: 1. Mild common bile duct and intrahepatic biliary ductal dilatation, slightly increased compared to prior. Recommend correlation with biliary lab values. 2. Postoperative changes distal pancreatectomy and splenectomy. 3. Postoperative changes small bowel resections with ileocolonic anastomosis and prominent dilatation, decreased compared to prior. 4. Right middle lobe nodular opacity adjacent groundglass opacity, may represent or focal atelectasis or infectious/inflammatory nodule. Recommend short-term follow-up to ensure resolution. Electronically signed by: En Joya DO (10/30/2019 11:54 AM) [id number]
[2019-10-30] MEDS ORDERED: fentaNYL PF VIAL 100 MCG/2 ML VIAL IVP ONE ×2 (12:00→13:45)
--- NOTE | 2019-10-30 13:21 | RAD ---
Examination: PELVIS W/TV History: Left-sided pelvic pain Comparison/Correlation: 10/30/2019 CT abdomen pelvis with contrast Findings: Transabdominal and transvaginal pelvic ultrasound exam was performed. Transvaginal technique was utilized with persistent adnexal structures. Hysterectomy noted. Right nephrectomy noted. Left ovary is not identified. Small amount of pelvic free fluid is present. At the superior aspect of the uterine cervix, there is a hypoechoic calcific nodule with flow within the endometrium at 1.5 cm x 1.2 cm x 1.9 cm. It is well-circumscribed. Impression: Minimal pelvic free fluid which may be pathologic. Left ovary is not visualized. No suspicious adnexal region mass. Small mass lesion with internal echogenic foci involving the uterine cervix. It is of indeterminate significance. Definite corresponding finding is not evident on CT exam performed earlier on the same day. Interval follow-up ultrasound is recommended to assess stability. Electronically signed by: Micha Augustin MD (10/30/2019 1:17 PM) [id number]
[2019-10-30 13:48] VITALS: BP 126/86
== END 2019-10-30 14:15 | disposition home or self-care (01) ==
LOC: ER 08:24
DX: R10.30 Lower abdominal pain, unspecified (principal); R11.2 Nausea with vomiting, unspecified; G43.909 Migraine, unspecified, not intractable, without status migrainosus; Z90.710 Acquired absence of both cervix and uterus; Z87.891 Personal history of nicotine dependence; Z88.1 Allergy status to other antibiotic agents; Z88.2 Allergy status to sulfonamides; Z88.5 Allergy status to narcotic agent
CPT/HCPCS: 36415; 74177; 76830; 76856; 80053; 81001; 81025; 83690; 83735; 85025; 85610; 85730; 96361; 96374; 96375; 96376; 99285; J1885; J2270; J2405; J3010; J7030; Q9967

== ENCOUNTER 2022-01-10 14:57 | Emergency (ER) | payer OTHER ==
[~2022-01-10] VITALS: Ht 165.1 cm; Wt 52.3 kg
[~2022-01-10 14:57] MED LIST changes: +AMLO-186 PO; -AMLO5TAB10 PO; -CITA40TA5 PO; +CITA40TA6 PO; -DULO60CA6 PO; +DULO60CA7 PO; +MAGN400T48 PO; -MAGN400T5 PO; +TIZA-75 PO; -TIZA4TAB2 PO
[2022-01-10] MEDS ORDERED: NITROGLYCERIN SUBLINGUAL 0.4 MG BOTTLE OF 25. SL PRN (15:30)
[2022-01-10] MEDS ORDERED: ASPIRIN 325 MG TABLET PO ONE (15:30)
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
--- NOTE | 2022-01-10 15:38 | RAD ---
XR CHEST 1V History: Reason: chest pain / Spl. Instructions: / History: Comparison: August 21, 2018 Findings: No consolidation or pleural effusion. Normal heart size. No pneumothorax. Impression: 1. No acute cardiopulmonary process. Electronically signed by: En Joya DO (01/10/2022 3:35 PM) [id number]
[2022-01-10] MEDS: MORPHINE SULFATE 4 MG/ML INJ. IV/SQ PRN ×2 (15:45→17:29)
[2022-01-10 15:46] LABS: BASO # 0.1 x10^3/uL (0.0-0.2); BASO % 1 % (0-3); EOS % 1 % (0-3); HEMATOCRIT 40.3 % (36.0-47.0); HEMOGLOBIN 13.5 g/dL (12.0-15.5); LYMPH # 2.5 x10^3/uL (1.0-4.8); LYMPH % 28 % (24-48); MEAN CORPUSCULAR HEMOGLOBIN 31 pg (25-35); MEAN CORPUSCULAR HGB CONC 33 g/dL (31-37); MEAN CORPUSCULAR VOLUME 92 fL (79-100); MONO # 0.6 x10^3/uL (0.0-1.1); MONO % 6 % (0-9); NEUT % 65 % (31-73); PLATELET COUNT 342 x10^3/uL (140-400); RED BLOOD COUNT 4.39 x10^6/uL (3.50-5.40); RED CELL DISTRIBUTION WIDTH 15.1 % (11.5-14.5); WHITE BLOOD COUNT 9.2 x10^3/uL (4.0-11.0)
[2022-01-10 16:10] LABS: CALCIUM 9.5 mg/dL (8.5-10.1); CREATININE 0.7 mg/dL (0.6-1.0); GFR 93.2; POTASSIUM 4.6 mmol/L (3.5-5.1)
[2022-01-10 16:16] LABS: ALBUMIN 3.7 g/dL (3.4-5.0); ALBUMIN/GLOBULIN RATIO 1.3 (1.0-1.7); MAGNESIUM 2.1 mg/dL (1.8-2.4); TOTAL BILIRUBIN 0.4 mg/dL (0.2-1.0); TOTAL PROTEIN 6.6 g/dL (6.4-8.2)
[2022-01-10 17:46] VITALS: BP 126/90
[2022-01-10 18:19] LABS: BACTERIA,URINE FEW /HPF (0-FEW); RBC,URINE 0 /HPF (0-2); WBC,URINE 0 /HPF (0-4)
[2022-01-10 18:30] LABS: BARBITURATES NEG (NEG); BENZODIAZEPINES POS (NEG); CANNABINOIDS NEG (NEG); COCAINE NEG (NEG); METHADONE NEG (NEG); OPIATES POS (NEG); PHENCYCLIDINE NEG (NEG)
[2022-01-10 18:40] LABS: AMPHETAMINE/METHAMPHETAMINE NEG (NEG)
[2022-01-10] MEDS ORDERED: OXYC5CAP PO (18:44)
--- NOTE | 2022-01-11 02:32 | EKG ---
[facility] [address] [place] [address] Test Date: 2022-01-10 Test Time: 17:17:20 Pat Name: DAR EDUARDO Department: Room: Gender: F Legal Operations Manager: : 1980 Requested By: ASHANTI ROSS Order Number: [id number] Reading MD: Best Blair MD Measurements Intervals [place] Rate: 87 P: 28 W[place]: 154 QRS: 83 QRSD: 82 T: 56 QT: 374 QTc: 451 Interpretive Statements SINUS RHYTHM Electronically Signed On 01-12-2022 15:38:15 CDT by Best Blair MD
--- NOTE | 2022-01-11 02:38 | EKG ---
[facility] [address] [place] [address] Test Date: 2022-01-10 Test Time: 15:02:37 Pat Name: DAR EDUARDO Department: Room: Gender: F Director Compensation: : 1980 Requested By: ASHANTI ROSS Order Number: [id number] Reading MD: Best Blair MD Measurements Intervals [place] Rate: 106 P: 72 VT: 146 QRS: 89 QRSD: 78 T: 52 QT: 350 QTc: 467 Interpretive Statements SINUS TACHYCARDIA NON-SPECIFIC ST/T CHANGES Electronically Signed On 01-12-2022 15:38:51 CDT by Best Blair MD
== END 2022-01-10 18:00 | disposition home or self-care (01) ==
LOC: ER 14:57
DX: R07.89 Other chest pain (principal); F41.0 Panic disorder [episodic paroxysmal anxiety]; G43.909 Migraine, unspecified, not intractable, without status migrainosus; F32.9 Major depressive disorder, single episode, unspecified; Z87.891 Personal history of nicotine dependence
CPT/HCPCS: 36415; 71045; 80053; 80307; 81001; 83735; 84484; 85025; 93005; 96374; 96375; 96376; 99285; J2060; J2270